=== PATIENT | female | born 2000 | race Caucasian/White ===

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

== ENCOUNTER 2020-03-14 23:00 | Observation (INO) | payer BC, SELFPAY ==
[2020-03-14 23:30] VITALS: BP 117/74; PULSE 99
[2020-03-14 23:45] VITALS: BP 125/67; PULSE 105
[2020-03-15] VITALS: BP 120/77; PULSE 104
[2020-03-15 00:23] VITALS: BMI 30.2
--- NOTE | 2020-03-15 00:23 | LDADM ---
This patient, Carolann Villa, was admitted to [facility] on 03/14/20 at 23:00. Plans for labor, pain management and were discussed with patient. Patient/family oriented to hospital policies and general routines including ID bracelet, bed and alarms, visiting hours, pain management, procedures, bathroom and other care routines, personal items, smoking policy, room service/diet and guest tray routines, infant security routines, and visiting hours. Patient/Family are encouraged to report perceived risks to care and to ask questions if they do not understand what they are told or what they should do. See OBIX for further documentation.
--- NOTE | 2020-04-12 08:37 | PM.OBTRLD ---
OB - Triage/Final Diagnosis Visit Information Comments/Additional reasons for admission: I have assessed the risk for this patient, Carolann Villa, and determined that she would benefit from observation care. Final Diagnosis (1) Pelvic pressure in female: Code(s): R10.2 - Pelvic and perineal pain Status: Acute
== END 2020-03-15 00:48 | disposition home or self-care (01) ==
PROVIDERS: Admitting Provider Obstetrics & Gynecology; PCP Family Medicine; Visit Provider Obstetrics & Gynecology
DX: O26.893 Other specified pregnancy related conditions, third trimester (principal); R10.2 Pelvic and perineal pain; Z3A.29 29 weeks gestation of pregnancy
CPT/HCPCS: G0378; G0379

== ENCOUNTER 2020-06-09 23:30 | Emergency (ER) | payer BC, SELFPAY ==
--- NOTE | ~2020-06-09 | XR_ITS ---
XR wrist RT min 3V DATE: 06/10/2020 01:01 INDICATION: Fall. Posterior and medial right wrist pain TECHNIQUE: 4 views COMPARISON: None FINDINGS: No fracture or dislocation, periosteal reaction or bone destruction, erosive change or mami drocalcinosis. Joint spaces are preserved. IMPRESSION: Negative Reviewed, dictated and finalized at location A. IMPRESSION: Negative
[2020-06-09 23:34] VITALS: BP 114/61; PULSE 94; RESP 16; TEMP 36.5; O2SAT 100
[2020-06-10] VITALS (14 sets, daily range): BP systolic 118–146; BP diastolic 70–94; PULSE 80–94; RESP 18; O2SAT 91–100
--- NOTE | 2020-06-10 01:01 | ED.FALL ---
HPI - Fall General Chief Complaint: Fall Stated Complaint: fall Time Seen by Provider: 06/10/20 00:19 Source: patient Mode of arrival: ambulatory Limitations: no limitations History of Present Illness HPI Narrative: This is a 19 year old female who presents for evaluation after a fall. She states she accidentally slipped on ice on steps, and this caused her to hit her chin. She denies hitting her head or LOC. She denies chin pain . She was just concerned if she needed stitches to the wound on her chin. She also complains of right wrist pain. Last tetanus is unknown. Related Data Home Medications Medication Instructions Recorded Confirmed Vitamin tablet 10/10/19 Allergies Allergy/AdvReac Type Severity Reaction Status Date / Time No Known Allergies Allergy Verified 05/23/19 19:20 Review of Systems Review of Systems: All systems reviewed & are unremarkable except as noted in HPI and below PMFSH Past Medical History Medical History (Updated 06/11/20 @ 00:00 by Bibi Moulton) Miscarriage UTI (urinary tract infection) Surgical History Surgical History Hx of tonsillectomy Status post dilation and curettage Social History Social History Smoking status: Never smoker Gender identity (if verbalized by the patient): Female Exam Const: General: no acute distress and alert Orientation/consciousness: patient oriented x3 HENMT: Head: normocephalic and atraumatic Mouth: Yes Normal oral and palatal mucosa present and Yes lip normal Teeth and gingiva: dentition normal (no loose teeth) Throat: posterior oropharynx normal Eyes: Pupils: Equal, round and reactive pupils present EOM: EOMs intact bilaterally Neck: Neck: normal visual inspection Chest: Chest palpation & inspection: normal inspection of the chest Resp: Effort & Inspection: normal respiratory effort and no retractions Auscultation: clear to auscultation bilaterally Cardio: Rate: regular rate Rhythm: regular rhythm Heart sounds: no murmurs Skin: Other: abrasion to chin, mild swelling Neuro: General: patient oriented x3 and moves all extremities Psych: Mental Status: mental status grossly normal Affect: normal affect Course Reevaluation(s) Reevaluation #1: I discussed with patient that xray - preliminary read is no wrist fracture. She understands if discrepancy found then she will be called. Date: 06/10/20 Time: 01:43 Vital Signs Vital signs: Vital Signs Temperature 97.7 F 06/09/20 23:34 Pulse Rate 94 06/09/20 23:34 Respiratory Rate 16 06/09/20 23:34 Blood Pressure 114/61 06/09/20 23:34 Pulse Oximetry 100 06/09/20 23:34 Temperature 97.7 F 06/09/20 23:34 Pulse Rate 80 06/10/20 01:55 Respiratory Rate 18 06/10/20 01:55 Blood Pressure 126/70 06/10/20 01:55 Pulse Oximetry 99 06/10/20 01:55 MDM - Fall Imaging Data Attestation: I personally reviewed and interpreted this imaging study as follows: My impression: right wrist- no fracture Discharge Plan Discharge Clinical Impression: Abrasion of chin, Right wrist sprain Patient Disposition: Home, Self-Care Condition: Stable Instructions: Antibiotic Form, Wrist Injury (ED), Abrasion (ED) Additional Instructions: Apply ice to your chin to help with pain and swelling. Keep wound clean and dry. Prescriptions: New ibuprofen 600 mg tablet 600 mg PO Q6H PRN (Reason: pain) Qty: 14 RF: 0 No Action Vitamin 27 mg iron- 800 mcg tablet RF: 0 Follow-up/Referrals: Lizabeth,Roseanne Gamble MD [Primary Care Provider] -
[2020-06-10] MEDS: IBUPROFEN 400 MG TABLET 800 MG PO (01:06)
[2020-06-10] MEDS: TETANUS,DIPHTHERIA,AC PERTUSSIS ADULT (0.5 ML) BOOSTRIX IM (01:07)
== END 2020-06-10 01:56 | disposition home or self-care (01) ==
PROVIDERS: Emergency Provider General Practice; PCP Family Medicine
DX: S01.81XA Laceration without foreign body of other part of head, initial encounter (principal); Z87.440 Personal history of urinary (tract) infections; W00.1XXA Fall from stairs and steps due to ice and snow, initial encounter; Z23 Encounter for immunization
CPT/HCPCS: 73110; 90471; 90715; 99283; A9270

== ENCOUNTER 2021-03-20 19:15 | Emergency (ER) | payer BC, SELFPAY ==
[2021-03-20 19:21] VITALS: BP 133/82; PULSE 95; RESP 20; TEMP 36.5; O2SAT 100
[2021-03-20 21:07] LABS: Basophils Percent Auto 0.3 % (0.2-1.2); Eosinophils Absolute Auto 0.1 K/mm3 (0-0.3); Eosinophils Percent Auto 1.8 % (0-4.4); Hemoglobin 11.7 g/dL (12.0-15.0); Immature Granulocyte Absolute 0.02 K/mm3 (0.00-0.031); Immature Granulocyte Percent A 0.3 % (0-0.5); Lymphocytes Absolute Auto 1.89 K/mm3 (0.9-3.2); Lymphocytes Percent Auto 30.1 % (18.3-44.2); Mean Corpuscular HGB Conc 32.5 g/dl (32-36); Mean Corpuscular Hemoglobin 25.2 pg (26-34); Mean Corpuscular Volume 77.4 fl (80-100); Mean Platelet Volume 10.2 fl (7.4-10.4); Monocytes Absolute Auto 0.3 K/mm3 (0.1-0.6); Monocytes Percent Auto 5.3 % (2.6-8.5); Neutrophils Absolute Auto 3.9 K/mm3 (1.3-6.7); Neutrophils Percent Auto 62.2 % (45.5-73.1); Platelet Count Result 189 k/mm3 (150-375); Red Blood Count 4.65 M/mm3 (4.2-5.4); Red Cell Distribution Width 14.7 % (11.5-14.5); White Blood Count 6.3 K/mm3 (4.5-10.0)
--- NOTE | 2021-03-20 21:56 | ED.FEMALEGU ---
HPI - Female Genitourinary General Chief complaint: Vaginal Bleeding Stated complaint: vaginal bleeding, 10wks preg Time Seen by Provider: 03/20/21 21:03 Source: patient Mode of arrival: ambulatory Limitations: no limitations History of Present Illness HPI Narrative: Patient is 20 years old white female 10 weeks came to the emergency room with sudden onset of vaginal bleeding noticed while using the bathroom. Associated with some lower abdominal cramps. Prior to arrival to the emergency room. Patient denies any fever, chills, or urinary symptoms. Patient is 3, para 1, 1. Patient noticed increased frequency of vomiting today compared to the past. Patient on vitamins, patient does not smoke or drink or uses drugs. Patient had 2 Covid vaccines. Related Data Home Medications Medication Instructions Recorded Confirmed Vitamin 1 tablet PO DAILY 10/10/19 03/20/21 Allergies Allergy/AdvReac Type Severity Reaction Status Date / Time No Known Allergies Allergy Verified 03/20/21 19:24 Review of Systems Review of Systems: CONSTITUTIONAL: Denies fever, chills, or sweats. EYES: Denies visual changes, redness, or discharge. ENT: Denies rhinorrhea, congestion, sore throat, or otalgia. CARDIOVASCULAR: Denies chest pain, palpitations, or edema. RESPIRATORY: Denies cough or dyspnea. GASTROINTESTINAL: Denies abdominal pain, nausea, vomiting, or diarrhea. GENITOURINARY: Denies dysuria or hematuria. SKIN: Denies rash or itching. MUSCULOSKELETAL: Denies back pain, joint pain, or myalgia. NEUROLOGIC: Denies headache, numbness, or weakness. PSYCHIATRIC: Denies anxiety or depression. PMFSH Past Medical History Medical History (Updated 03/20/21 @ 22:36 by Noy Arreola MD) Miscarriage UTI (urinary tract infection) Surgical History Surgical History Hx of tonsillectomy Status post dilation and curettage Social History Social History Smoking status: Never smoker Gender identity (if verbalized by the patient): Female Exam Narrative: General appearance: Well-developed, well-nourished Skin: Normal color Head: Normocephalic, nontraumatic Eyes: Clear conjunctiva ENT: Oropharynx normal, ears normal, nose normal Neck: Supple, nontender Chest and respiratory: Airway patent, no respiratory distress, no accessory muscle use Heart: Regular rate/rhythm Abdomen: Soft, nontender, no organomegaly, quiet bowel sounds Vascular: Normal peripheral pulses, normal capillary refill. Musculoskeletal: Normal range of motion, nontender back Neurologic: Alert and oriented ?3, [employer] is normal as tested, no gross motor deficit : External Female Exam: normal external appearance Speculum Exam - Vagina: normal appearance of the vagina and Abnormal introitus (No vaginal bleeding, or even trace of blood) Speculum Exam - Cervix: normal appearance of the cervix and Cervical os closed Bimanual exam- vagina & uterus: normal bimanual exam Course Course Emergency Course: Stable Reevaluation(s) Reevaluation #1: Patient feeling much better, no vaginal bleeding at this time, patient declined to wait for pelvic ultrasound. Date: 03/20/21 Time: 23:05 Vital Signs Vital signs: Vital Signs Temperature 36.5 C 03/20/21 19:21 Pulse Rate 95 03/20/21 19:21 Respiratory Rate 20 03/20/21 19:21 Blood Pressure 133/82 03/20/21 19:21 Pulse Oximetry 100 03/20/21 19:21 Temperature 36.5 C 03/20/21 19:21 Pulse Rate 95 03/20/21 19:21 Respiratory Rate 20 03/20/21 19:21 Blood Pressure 133/82 03/20/21 19:21 Pulse Oxime
== END 2021-03-20 23:07 | disposition home or self-care (01) ==
PROVIDERS: Emergency Provider Emergency Medicine; PCP Family Medicine
DX: O20.0 Threatened abortion (principal); Z3A.10 10 weeks gestation of pregnancy; Z87.440 Personal history of urinary (tract) infections
CPT/HCPCS: 36415; 84702; 85025; 85461; 99284

== ENCOUNTER 2021-08-08 03:35 | Emergency (ER) | payer BC, SELFPAY ==
[2021-08-08 03:41] VITALS: BP 110/60; PULSE 111; RESP 22; TEMP 36.5; O2SAT 97
[2021-08-08] MEDS: ACETAMINOPHEN 500 MG TABLET 1000 MG PO (03:53)
--- NOTE | 2021-08-08 03:55 | ED.GENADULT ---
HPI - General Adult General Chief complaint: Skin/Abscess/Foreign Body Stated complaint: I have something stuck in my nose Time Seen by Provider: 08/08/21 03:38 History of Present Illness HPI narrative: 21-year-old female presents emergency room states she is having trouble breathing on the right side of her nose. It started a day or so ago. She denies any significant nasal congestion. No chills or fever. She denies putting any foreign bodies upper nose. Never anything like this before. States is given her some exacerbation of her migraine headache. She is currently and a 2 para 1 approximately 30 weeks gestation at this point. Denies any abdominal pain. She is having good movement. Related Data Home Medications Medication Instructions Recorded Confirmed vits no.130-ferrous fum 1 tablet PO DAILY 10/10/19 03/20/21 27 mg iron-folic acid 800 mcg tablet ( Vitamin) Allergies Allergy/AdvReac Type Severity Reaction Status Date / Time No Known Allergies Allergy Verified 03/20/21 19:24 Review of Systems Review of Systems: CONSTITUTIONAL: Denies fever, chills, or sweats. EYES: Denies visual changes, redness, or discharge. ENT: Denies rhinorrhea, congestion, sore throat, or otalgia. Trouble breathing out of the right nares CARDIOVASCULAR: Denies chest pain, palpitations, or edema. RESPIRATORY: Denies cough or dyspnea. GASTROINTESTINAL: Denies abdominal pain, nausea, vomiting, or diarrhea. GENITOURINARY: Denies dysuria or hematuria. SKIN: Denies rash or itching. MUSCULOSKELETAL: Denies back pain, joint pain, or myalgia. NEUROLOGIC: Denies headache, numbness, or weakness. PSYCHIATRIC: Denies anxiety or depression. PMFSH Past Medical History Medical History Miscarriage UTI (urinary tract infection) Surgical History Surgical History Hx of tonsillectomy Status post dilation and curettage Social History Social History Smoking status: Never smoker Gender identity (if verbalized by the patient): Female Exam Narrative: APPEARANCE: Well appearing, no pain or distress, well-nourished. Head normocephalic and atraumatic. EYES: PERRLA/EOMI, conjunctivae very clear. NOSE: In the right nares noted to be a white saccular type lesion noted there. Able to grab it with a pair of tweezers and is freely movable but consistent with a probable mucocele. Left nares is open and clear EARS:TMS clear Stephy Huggins, with good light reflex. THROAT: Pharynx clear, no exudate. NECK: Supple. No adenopathy, no masses. RESPIRATORY: Airway patent, respirations nonlabored. Clear to auscultation bilaterally, no rales, rhonchi, wheezing. CARDIOVASCULAR: Regular rate and rhythm without murmurs, rubs, or gallops. ABDOMINAL: Soft, nontender, nondistended, no hepatosplenomegaly. Gravid uterus noted Musculoskeletal: Moves all extremities. Strength/ROM intact, No edema, No calf tenderness. NEURO: Alert. Cranial nerves II through XII intact. Normal gait. Good coordination. Nonfocal examination. SKIN:: Warm, dry. Normal Color PSYCHIATRIC: Normal affect/mood, normal interaction Course Vital Signs Vital signs: Vital Signs Temperature 97.7 F 08/08/21 03:41 Pulse Rate 111 H 08/08/21 03:41 Respiratory Rate 22 H 08/08/21 03:41 Blood Pressure 110/60 08/08/21 03:41 Pulse Oximetry 97 08/08/21 03:41 Oxygen Delivery Room Air 08/08/21 03:41 Temperature 97.7 F 08/08/21 03:41 Pulse Rate 111 H 08/08/21 03:41 Respiratory Rate 22 H 08/08/21 03:41 Blood Pressure 110/60 08/08/21 03:41 Pulse Oximetry 97 08/08/21 03:41 Oxygen Delivery Room Air 08/08/21 03:41 Medical Decision Making MDM Narrative Medical decision making narrative: Presentation is consistent with a probable mucocele in the right nares. Patient ken
[2021-08-08 04:02] VITALS: BP 110/60; PULSE 90; RESP 20; O2SAT 97
== END 2021-08-08 04:05 | disposition home or self-care (01) ==
PROVIDERS: Emergency Provider Emergency Medicine
DX: O99.513 Diseases of the respiratory system complicating pregnancy, third trimester (principal); J34.1 Cyst and mucocele of nose and nasal sinus; Z87.440 Personal history of urinary (tract) infections; Z3A.30 30 weeks gestation of pregnancy
CPT/HCPCS: 99282; A9270

== ENCOUNTER 2021-08-23 00:36 | Observation (INO) | payer BC, SELFPAY ==
[2021-08-23] VITALS (16 sets, daily range): BP systolic 121–122; BP diastolic 68–70; PULSE 80–112; TEMP 36.8; O2SAT 98–100
--- NOTE | 2021-08-23 00:36 | OBADM ---
This patient, Carolann Villa, admitted to the OB room [facility] for observation. Patient/family oriented to hospital policies and general routines including ID bracelet, bed and alarms, visiting hours, pain management, procedures, bathroom and other care routines, personal items, smoking policy, room service/diet, and visiting hours. Patient/Family are encouraged to report perceived risks to care and to ask questions if they do not understand what they are told or what they should do.
--- NOTE | 2021-08-23 01:04 | PC.NURSE ---
Notified Dr. Espinoza of patient arrival to OB unit. Updated on maternal assessment and history and FHT. Order to collect ROM plus given and PO hydrate.
--- NOTE | 2021-08-23 02:34 | PC.NURSE ---
Dr. Espinoza notified of patient continued mild contractions following PO hydration. Orders received.
[2021-08-23] MEDS: TERBUTALINE SULFATE 1 MG/ML VIAL 0.25 MG SUB-Q (02:46)
--- NOTE | 2021-08-23 03:37 | PC.NURSE ---
Patient states she is no longer feeling any contractions following terbutaline dose. Patient is resting comfortably.
--- NOTE | 2021-08-23 03:49 | PC.NURSE ---
Discharge instructions reviewed with patient. Labor precautions reviewed. Patient instructed to maintain pelvic rest. Patient instructed to follow-up with OB office Monday. Patient states understanding of discharge instructions and denies questions. Patient is agreeable to discharge.
--- NOTE | 2021-08-26 02:10 | PM.OBTRLD ---
OB - Triage/Final Diagnosis Visit Information Comments/Additional reasons for admission: I have assessed the risk for this patient, Carolann Villa, and determined that she would benefit from observation care. Final Diagnosis (1) Vaginal discharge during : Code(s): O26.899 - Other specified related conditions, unspecified trimester; N89.8 - Other specified noninflammatory disorders of vagina Status: Acute
== END 2021-08-23 03:53 | disposition home or self-care (01) ==
PROVIDERS: Admitting Provider Obstetrics & Gynecology; Visit Provider Obstetrics & Gynecology
DX: O26.899 Other specified pregnancy related conditions, unspecified trimester (principal); N89.8 Other specified noninflammatory disorders of vagina; Z3A.00 Weeks of gestation of pregnancy not specified
CPT/HCPCS: 84112; 96372; G0378; G0379; J3105

== ENCOUNTER 2021-09-26 00:56 | Outpatient (CLI) | payer BC, SELFPAY ==
--- NOTE | 2021-09-26 01:10 | PC.NURSE ---
Pt brought from ER stating that her water was broke. Pt taken to room to change and call out when ready. Upon entering room, pt stated that she had to leave. Pt informed of risk of infection if her water was broken. Pt stated that she did not want to be evaluated. Instructed that she would need to sign AMA form. Pt agreed. AMA form taken to room and pt was crying. Asked if she was ok, and if we could do anything for her. Pt stated that she would be fine and there was nothing we could do. Significant other stated that their ride had their children with them and were being retarded . Significant other stated that they would probably be back.
== END 2021-09-26 01:12 | disposition left against medical advice (07) ==
LOC: ANHOBOP 01:13 → ANHLDR 01:13
PROVIDERS: Visit Provider Obstetrics & Gynecology
DX: O41.8X90 Other specified disorders of amniotic fluid and membranes, unspecified trimester, not applicable or unspecified (principal); Z3A.00 Weeks of gestation of pregnancy not specified
CPT/HCPCS: 99199

== ENCOUNTER 2021-09-26 04:04 | Observation (INO) | payer BC, SELFPAY ==
--- NOTE | 2021-09-26 04:04 | OBADM ---
This patient, Carolann Villa, admitted to the OB room Labor/Delivery/Recovery 107 for observation. Patient/family oriented to hospital policies and general routines including ID bracelet, bed and alarms, visiting hours, pain management, procedures, bathroom and other care routines, personal items, smoking policy, room service/diet, and visiting hours. Patient/Family are encouraged to report perceived risks to care and to ask questions if they do not understand what they are told or what they should do.
[2021-09-26 04:15] VITALS: BMI 34.0
[2021-09-26 05:00] VITALS: BP 110/74; PULSE 77
--- NOTE | 2021-09-28 17:44 | PM.OBTRLD ---
OB - Triage/Final Diagnosis Visit Information Reason for evaluation: threatened labor Comments/Additional reasons for admission: I have assessed the risk for this patient, Carolann Villa, and determined that she would benefit from observation care.
== END 2021-09-26 05:15 | disposition home or self-care (01) ==
PROVIDERS: Admitting Provider Obstetrics & Gynecology; Visit Provider Obstetrics & Gynecology
DX: O47.1 False labor at or after 37 completed weeks of gestation (principal); Z3A.37 37 weeks gestation of pregnancy
CPT/HCPCS: 84112; G0378; G0379

== ENCOUNTER 2021-11-21 22:21 | Emergency (ER) | payer BC, SELFPAY ==
[2021-11-21 22:26] VITALS: BP 117/67; PULSE 81; RESP 16; TEMP 36.4; O2SAT 100
[2021-11-21 23:06] LABS: Basophils Percent Auto 0.4 % (0.2-1.2); Eosinophils Absolute Auto 0.2 K/mm3 (0-0.3); Eosinophils Percent Auto 3.6 % (0-4.4); Hematocrit 37.2 % (37.0-47.0); Hemoglobin 11.1 g/dL (12.0-15.0); Immature Granulocyte Absolute 0.03 K/mm3 (0.00-0.031); Immature Granulocyte Percent A 0.4 % (0-0.5); Lymphocytes Absolute Auto 2.36 K/mm3 (0.9-3.2); Lymphocytes Percent Auto 35.2 % (18.3-44.2); Mean Corpuscular HGB Conc 29.8 g/dl (32-36); Mean Corpuscular Hemoglobin 23.2 pg (26-34); Mean Corpuscular Volume 77.7 fl (80-100); Mean Platelet Volume 10.5 fl (7.4-10.4); Monocytes Absolute Auto 0.4 K/mm3 (0.1-0.6); Monocytes Percent Auto 5.7 % (2.6-8.5); Neutrophils Absolute Auto 3.7 K/mm3 (1.3-6.7); Neutrophils Percent Auto 54.7 % (45.5-73.1); Platelet Count Result 202 k/mm3 (150-375); Red Blood Count 4.79 M/mm3 (4.2-5.4); Red Cell Distribution Width 21.9 % (11.5-14.5); White Blood Count 6.7 K/mm3 (4.5-10.0)
[2021-11-21 23:42] LABS: Platelet Estimate Adequate (Adequate)
[2021-11-21 23:43] LABS: Microcytosis 1+ (NORMAL); Poikilocytosis 1+ (NORMAL)
[2021-11-21 23:45] LABS: Hypochromasia 1+ (NORMAL)
[2021-11-22 00:36] VITALS: BP 123/75; PULSE 74; RESP 17; O2SAT 100
--- NOTE | 2021-11-22 00:51 | PC.NURSE ---
Called lab to add on Beta HCG, spoke with quinton, she will add it on.
[2021-11-22 00:59] LABS: Appearance Urine Clear (Clear); Bilirubin Urine Negative (Negative); Blood Urine 3+ (Negative); Color Urine Yellow (Yellow); Glucose Urine UA Negative (Negative); Ketones Urine Negative (Negative); Leukocyte Esterase Ur Negative LEU/UL (Negative); Nitrate Urine Negative (Negative); Protein Urine Negative (Negative); Urobilinogen Urine 0.2 mg/dL (<2.0); pH Urine 6.5 (5.0-9.0)
--- NOTE | 2021-11-22 01:04 | ED.GENADULT ---
HPI - General Adult General Chief complaint: Vaginal Bleeding <JOSE Ventura Last Filed: 11/22/21 03:26> Stated complaint: vaginal bleeding <JOSE Ventura Last Filed: 11/22/21 03:26> Time Seen by Provider: 11/21/21 23:53 <JOSE Ventura Last Filed: 11/22/21 03:26> Source: patient <JOSE Ventura Last Filed: 11/22/21 03:26> Mode of arrival: ambulatory <JOSE Ventura Last Filed: 11/22/21 03:26> Limitations: no limitations <JOSE Ventura Last Filed: 11/22/21 03:26> History of Present Illness HPI narrative: Patient is a 29-year-old female who presents the ED with report of vaginal bleeding. Patient reports she had a short menstrual cycle last week which ended on . On Monday morning, she passed a large baseball size clot. She has since had mild vaginal bleeding over the last couple days. Some smaller clots present. She reports having some lower abdominal pain, but has not tried anything for this. Denies nausea, vomiting, fever, urinary symptoms. Patient is sexually active. <JOSE Ventura Last Filed: 11/22/21 03:26> Related Data Home medications: Home Medications Medication Instructions Recorded Confirmed vits no.130-ferrous fum 1 tablet PO DAILY 10/10/19 08/23/21 27 mg iron-folic acid 800 mcg tablet ( Vitamin) <JOSE Ventura Last Filed: 11/22/21 03:26> Allergies/adverse reactions: Allergies Allergy/AdvReac Type Severity Reaction Status Date / Time No Known Allergies Allergy Verified 11/22/21 00:37 <JOSE Ventura Last Filed: 11/22/21 03:26> Review of Systems Review of Systems: CONSTITUTIONAL: Denies fever, chills, or sweats. CARDIOVASCULAR: Denies chest pain. RESPIRATORY: Denies dyspnea. GASTROINTESTINAL: Reports lower abdominal pain. Denies nausea, vomiting, or diarrhea. GENITOURINARY: Reports vaginal bleeding with clots. Denies dysuria or hematuria. <Patti Mancera PA-C - Last Filed: 11/22/21 03:26> All systems reviewed & are unremarkable except as noted in HPI and below <Patti Mancera PA-C - Last Filed: 11/22/21 03:26> PMFSH Past Medical History Medical History: Medical History (Updated 11/23/21 @ 00:00 by Bibi Dakamron) Miscarriage UTI (urinary tract infection) <Patti Mancera PA-C - Last Filed: 11/22/21 03:26> Surgical History Surgical History: Surgical History Hx of tonsillectomy Status post dilation and curettage <Patti Mancera PA-C - Last Filed: 11/22/21 03:26> Social History Social History: Social History Smoking status: Never smoker Gender identity (if verbalized by the patient): Female <Patti Mancera PA-C - Last Filed: 11/22/21 03:26> Exam Narrative: GENERAL: Well appearing, well-nourished, non-toxic, in no acute distress. HEAD: Normocephalic, atraumatic. NECK: Supple. No adenopathy, no masses. RESPIRATORY: Airway patent, respirations nonlabored. Clear to auscultation bilaterally, no rales, rhonchi, wheezing. CARDIOVASCULAR: Regular rate and rhythm without murmurs, rubs, or gallops. Peripheral pulses 2+ and equal bilaterally. ABDOMINAL: Soft, minimal tenderness over suprapubic region, nondistended, no hepatosplenomegaly. Normoactive BS. PELVIC: Normal external genitalia. Normal-appearing cervix. Some blood coming from cervical os, but no signs of hemorrhage or pooling of blood. Able to clear blood easily with long Q-tips. No significant CMT. MUSCULOSKELETAL: Moves all extremities. Strength/ROM intact without gross deformities. SKIN: Warm, dry, normal color. No rashes. NEURO: A&O X3. Speech clear. Cranial nerves II-XII grossly intact. Steady gait. No ataxic movements. PSYCHIATRIC: Appr
[2021-11-22 01:06] LABS: Mucus Urine Rare /lpf; RBC Urine >75 /hpf (0-2); Squamous Epithelial Cell Urine Rare /hpf (Few)
[2021-11-22 01:16] LABS: Add Urine Microscopic? YES
[2021-11-22 01:26] LABS: Beta HCG Quantitative < 2.39 mIU/ML
== END 2021-11-22 02:04 | disposition home or self-care (01) ==
PROVIDERS: Physician Assistant; Emergency Provider Emergency Medicine
DX: N93.8 Other specified abnormal uterine and vaginal bleeding (principal)
CPT/HCPCS: 36415; 81001; 84702; 85025; 99284

== ENCOUNTER 2023-05-19 03:21 | Observation (INO) | payer OTHER, SELFPAY ==
[2023-05-19] VITALS (18 sets, daily range): BP systolic 102–116; BP diastolic 55–70; PULSE 74–112; TEMP 36.6; O2SAT 98–100; BMI 25.8
[2023-05-19 04:00] LABS: Appearance Urine Clear (Clear); Bacteria Urine Rare /hpf; Bilirubin Urine Negative (Negative); Blood Urine Negative (Negative); Color Urine Yellow (Yellow); Glucose Urine UA Negative (Negative); Ketones Urine Negative (Negative); Leukocyte Esterase Ur 3+ LEU/UL (Negative); Nitrate Urine Negative (Negative); Non Pathogenic Casts 0-2; Protein Urine Negative (Negative); RBC Urine 0-2 /hpf (0-2); Specific Grav Ur 1.008 (1.001-1.035); Squamous Epithelial Cell Urine Few /hpf (Few); Urobilinogen Urine 0.2 mg/dL (<2.0); WBC Urine 21-50 /hpf (0-3)
[2023-05-19 04:13] LABS: Add Urine Microscopic? YES
[2023-05-19] MEDS: TERBUTALINE SULFATE 1 MG/ML VIAL (04:49)
--- NOTE | 2023-06-08 13:42 | PM.OBTRLD ---
OB - Triage/Final Diagnosis Visit Information Comments/Additional reasons for admission: I have assessed the risk for this patient, Carolann Villa, and determined that she would benefit from observation care. Evaluation Laboratory results: Laboratory Tests 05/19/23 03:36 Urine Color Yellow Urine Appearance Clear Urine pH 8.0 Ur Specific [place] 1.008 Urine Protein Negative Urine Glucose (UA) Negative Urine Ketones Negative Ur Blood (Man) Negative Urine Nitrate Negative Urine Bilirubin Negative Urine Urobilinogen 0.2 Ur Leukocyte Esterase 3+ H Urine RBC 0-2 Urine WBC 21-50 H Ur Squamous Epith Cells Few Urine Bacteria Rare Urine Casts 0-2 Final Diagnosis (1) contractions: Code(s): O47.00 - False labor before 37 completed weeks of gestation, unspecified trimester Status: Acute
== END 2023-05-19 05:55 | disposition home or self-care (01) ==
PROVIDERS: Admitting Provider Obstetrics & Gynecology; Visit Provider Obstetrics & Gynecology
DX: O47.00 False labor before 37 completed weeks of gestation, unspecified trimester (principal); Z3A.33 33 weeks gestation of pregnancy
CPT/HCPCS: 81001; 84112; 87086; 87088; 96372; G0378; G0379; J3105

== ENCOUNTER 2023-05-31 17:03 | Outpatient (CLI) | payer MEDICAID, SELFPAY ==
[2023-05-31 17:42] LABS: Basophils Percent Auto 0.3 % (0.2-1.2); Eosinophils Absolute Auto 0.1 K/mm3 (0-0.3); Eosinophils Percent Auto 1.4 % (0-4.4); Hematocrit 27.2 % (37.0-47.0); Hemoglobin 8.5 g/dL (12.0-15.0); Immature Granulocyte Absolute 0.23 K/mm3 (0.00-0.031); Immature Granulocyte Percent A 2.6 % (0-0.5); Lymphocytes Absolute Auto 1.82 K/mm3 (0.9-3.2); Lymphocytes Percent Auto 20.6 % (18.3-44.2); Mean Corpuscular HGB Conc 31.3 g/dl (32-36); Mean Corpuscular Hemoglobin 24.7 pg (26-34); Mean Corpuscular Volume 79.1 fl (80-100); Mean Platelet Volume 11.4 fl (7.4-10.4); Monocytes Absolute Auto 0.4 K/mm3 (0.1-0.6); Neutrophils Absolute Auto 6.2 K/mm3 (1.3-6.7); Neutrophils Percent Auto 70.1 % (45.5-73.1); Platelet Count Result 191 k/mm3 (150-375); Red Blood Count 3.44 M/mm3 (4.2-5.4); Red Cell Distribution Width 16.4 % (11.5-14.5); White Blood Count 8.8 K/mm3 (4.5-10.0)
[2023-05-31 19:51] LABS: Hepatitis B Surface Antigen Negative (Negative); Rubella IgG Antibody 5.7 IU/ML
[2023-05-31 19:57] LABS: HAV RESULT Negative (Negative); Hepatitis B Core IgM Result Negative (Negative)
[2023-05-31 20:02] LABS: HIV 1/2 Ab P24 Ag Result Negative (Negative)
[2023-05-31 20:08] LABS: Hepatitis C Virus Antibody Negative (Negative)
[2023-06-01 09:02] LABS: Rapid Plasma Reagin Non-Reactive (NonReactive)
[2023-06-07 14:49] LABS: CMV IgG Antibody <0.60 U/mL
== END 2023-05-31 17:04 | disposition home or self-care (01) ==
PROVIDERS: Visit Provider Student in an Organized Health Care Education/Training Program
DX: Z34.90 Encounter for supervision of normal pregnancy, unspecified, unspecified trimester (principal)
CPT/HCPCS: 36415; 80074; 84702; 85025; 86592; 86644; 86695; 86696; 86703; 86747; 86762; 86787; 86850; 86900; 86901; 87077; 87086; 87088; G0432

== ENCOUNTER 2023-06-15 12:19 | Outpatient (CLI) | payer MEDICAID, SELFPAY ==
[2023-06-15 12:45] VITALS: BP 114/70; PULSE 101
[2023-06-15 13:00] VITALS: BP 108/55; PULSE 94
[2023-06-15 13:01] VITALS: BP 107/60; PULSE 107
[2023-06-15 13:15] VITALS: BP 114/64; PULSE 105
[2023-06-15 13:31] VITALS: BP 114/64; PULSE 105
== END 2023-06-15 13:35 | disposition home or self-care (01) ==
LOC: ANHOBOP 12:23 → ANHLDR 12:24
PROVIDERS: Visit Provider Student in an Organized Health Care Education/Training Program
DX: O41.8X90 Other specified disorders of amniotic fluid and membranes, unspecified trimester, not applicable or unspecified (principal)
CPT/HCPCS: 59025; 84112; 99199

== ENCOUNTER 2023-06-20 07:00 | Observation (INO) | payer MEDICAID, SELFPAY ==
[2023-06-20 08:00] VITALS: BMI 27.6
--- NOTE | 2023-06-20 09:34 | LDADM ---
This patient, Carolann Villa, was admitted to Labor/Delivery/Recovery 104 on 06/20/23 at 07:00. Plans for labor, pain management and were discussed with patient. Patient/family oriented to hospital policies and general routines including ID bracelet, bed and alarms, visiting hours, pain management, procedures, bathroom and other care routines, personal items, smoking policy, room service/diet and guest tray routines, security routines, and visiting hours. Patient/Family are encouraged to report perceived risks to care and to ask questions if they do not understand what they are told or what they should do. See OBIX for further documentation.
--- NOTE | 2023-06-20 09:37 | PC.NURSE ---
0700: Patient presents to L&D unit with complaints of contractions and patient states she is unsure if she is leaking fluid. Patient placed on monitors and ROM+ test performed. Cervical exam performed and patient given a pitcher of water to orally hydrate. 0909: Patient orally hydrated and states cramping has improved. Patient's ROM+ test was negative and patient has had no fluid out. Patient's cervix has made no change since last cervical exam. Called Dr. Funes at 0909. Discussed patient's negative ROM+ results as well as notified MD of both cervical exams. Dr. Funes reviewed tracing and gave verbal orders for discharge. Patient agrees with plan of care and has no questions at this time.
--- NOTE | 2023-06-20 09:38 | PM.OBTRLD ---
OB - Triage/Final Diagnosis Visit Information Date of evaluation: 06/20/23 Reason for evaluation: threatened labor Comments/Additional reasons for admission: I have assessed the risk for this patient, Carolann Villa, and determined that she would benefit from observation care. Evaluation Vital signs: Vital Signs - 24 hr 06/20/23 08:00 Oxygen Delivery Room Air
== END 2023-06-20 09:30 | disposition home or self-care (01) ==
PROVIDERS: Admitting Provider Student in an Organized Health Care Education/Training Program; Visit Provider Student in an Organized Health Care Education/Training Program
DX: O47.1 False labor at or after 37 completed weeks of gestation (principal); Z3A.38 38 weeks gestation of pregnancy
CPT/HCPCS: 84112; G0378; G0379

== ENCOUNTER 2023-06-26 04:50 | Inpatient (IN) | payer OTHER, SELFPAY ==
[2023-06-26] VITALS (43 sets, daily range): BP systolic 101–142; BP diastolic 59–107; PULSE 31–178; RESP 16–18; TEMP 36.4–36.7; O2SAT 78–100; BMI 28.8
--- NOTE | 2023-06-26 04:50 | LDADM ---
This patient, Carolann Villa, was admitted to Labor/Delivery/Recovery 104 on 06/26/23 at 04:50. Plans for labor, pain management and were discussed with patient. Patient/family oriented to hospital policies and general routines including ID bracelet, bed and alarms, visiting hours, pain management, procedures, bathroom and other care routines, personal items, smoking policy, room service/diet and guest tray routines, security routines, and visiting hours. Patient/Family are encouraged to report perceived risks to care and to ask questions if they do not understand what they are told or what they should do. See OBIX for further documentation.
[2023-06-26 05:40] LABS: Basophils Absolute Auto 0.1 K/mm3 (0.0-0.1); Basophils Percent Auto 0.5 % (0.2-1.2); Eosinophils Absolute Auto 0.2 K/mm3 (0-0.3); Eosinophils Percent Auto 2.2 % (0-4.4); Hematocrit 28.7 % (37.0-47.0); Hemoglobin 8.9 g/dL (12.0-15.0); Immature Granulocyte Absolute 0.16 K/mm3 (0.00-0.031); Immature Granulocyte Percent A 1.7 % (0-0.5); Lymphocytes Absolute Auto 2.51 K/mm3 (0.9-3.2); Lymphocytes Percent Auto 26.8 % (18.3-44.2); Mean Corpuscular Volume 80.6 fl (80-100); Monocytes Absolute Auto 0.5 K/mm3 (0.1-0.6); Monocytes Percent Auto 5.4 % (2.6-8.5); Neutrophils Absolute Auto 5.9 K/mm3 (1.3-6.7); Neutrophils Percent Auto 63.4 % (45.5-73.1); Platelet Count Result 211 k/mm3 (150-375); Red Blood Count 3.56 M/mm3 (4.2-5.4); White Blood Count 9.4 K/mm3 (4.5-10.0)
[2023-06-26] MEDS: LACTATED RINGERS 1,000 ML 125 ML IV CONT ×2 (06:09→08:15)
[2023-06-26] MEDS: OXYTOCIN 30 UNITS/NS 500 ML 30 UNITS/500 ML BAG IV CONT (06:10)
--- NOTE | 2023-06-26 06:11 | WPDANESEPP ---
Anes - Eval Pre Procedure Procedure: Labor Epidural Date/Time: 06/26/23 06:11 Surgeon: Marin Preop Diagnosis: Labor pain Pre Op Diagnosis: IOL Patient Data Age: 22 Gender: F Height: 1.63 m Weight: 76 kg Last Vital Signs Pulse 93 06/26/23 06:00 BP 108/70 06/26/23 06:00 O2 Del Method Room Air 06/26/23 05:16 Allergies Allergy/AdvReac Type Severity Reaction Status Date / Time No Known Allergies Allergy Verified 06/26/23 05:26 Home Medications Medication Instructions Recorded Confirmed Type vits no.130-ferrous fum 1 tablet PO DAILY 10/10/19 06/26/23 History 27 mg iron-folic acid 800 mcg tablet ( Vitamin) Laboratory Tests 06/26/23 05:13 WBC Pending RBC Pending Hgb Pending Hct Pending MCV Pending MCH Pending MCHC Pending RDW Pending Plt Count Pending MPV Pending Immature Gran % (Auto) Pending Neut % (Auto) Pending Lymph % (Auto) Pending [place] % (Auto) Pending Eos % (Auto) Pending Baso % (Auto) Pending Lymph # (Auto) Pending [place] # (Auto) Pending Eos # (Auto) Pending Baso # (Auto) Pending Abs Immat Gran (auto) Pending Absolute Neuts (auto) Pending Absolute Nucleated RBC Pending Nucleated RBC % Pending RPR Pending : gestational age ([place] 07/03/23) Patient hx anesthesia problems: none Family hx anesthesia problems: none Results Review: All pre-operative results and documents have been reviewed as part of the pre-operative evaluation. [facility] Past Medical History Medical History Miscarriage UTI (urinary tract infection) Surgical History Surgical History Status post dilation and curettage (11/28/18) suction D&C missed AB Family History Family History Father Diabetes mellitus Mother Diverticulitis Hypertension Social History Social History Smoking packs per day: 0.5 Smoking cigarettes per day: 10.0 Years smoked: 3 Smoking pack-years: 1.50 Smoking status: Current every day smoker Tobacco type: cigarettes Second hand tobacco smoke exposure: Yes Additional smoking assessment comments: only smoking 2 cigarettes a day Alcohol intake: never Substance use: never Substance use type: does not use Do You Feel Safe in your Home?: Yes Lack of Transportation: No Lack of Food: Never True Current Housing: I Have Housing Concerned About Future Housing: No Difficulty Paying Gas/Electric Bills: No Difficulty Paying for Meds: No Currently Unemployed: YES Education: Grade School Difficulty w/ Childcare or Family Care: No Living arrangements: with family Additional living arrangements comments: lives with mother Occupation/Education: unemployed Gender identity (if verbalized by the patient): Female Sexual Orientation (if Verbalized by the Patient): Straight or Heterosexual Spiritual care concerns: No Exam Day of Procedure 06/26/23 06:11 Patient weight: normal Heart: regular rate and rhythm Lungs: normal air movement Airway: Mallampati scale class II Neurological: alert and oriented
--- NOTE | 2023-06-26 07:23 | WPDHPUPDATE1 ---
History and Physical Update Update Date/Time: 06/26/23 07:23 22 yo who presents for elective IOL History and Physical has been reviewed, including an updated exam of the patient. There are NO changes in the patient's condition. Risks, benefits, and alternatives have been discussed and questions answered. Patient agrees to proceed with procedure. A/P: admit to L&D Rh+ GBS neg plan for elective IOL
--- NOTE | 2023-06-26 07:27 | PM.OBPNLAB ---
Pain Control Date/time seen: 06/26/23 07:27 Pain control: tolerating well Pelvic Exam Dilation (cm): 3 Effacement (%): 50 station: -3 Amniotic membrane status: Intact Status status: Category ll Assessment and Plan Assessment: induction ongoing Comments: AROM for thin meconium stained fluid.
[2023-06-26 07:29] LABS: HIV 1/2 Ab P24 Ag Result Negative (Negative)
--- NOTE | 2023-06-26 08:50 | PM.OBPRVD ---
OB - Vaginal Delivery Note Procedure Delivery date: 06/26/23 Induction method: Per Pitocin Protocol Delivery augmentation: Rupture of Membranes Delivery monitor: External FHT and External Uterine Route of delivery: Episiotomy description: None Laceration Description: None Specimen: No Quantitative Blood Loss (ml): 150 Anesthesia type: Epidural Disposition: Floor Complications: No immediate complications Narrative: Patient pushed for a spontaneous vaginal delivery. The fetus was delivered atraumatically and placed on the maternal abdomen. The cord was clamped and cut after 1 minute of life. The cord was double clamped and cut and a segment of cord was collected for cord gases. Cord blood was collected for blood type and Coomb's testing. The placenta delivered spontaneously and was noted to be intact. The perineum was inspected and noted to be intact. The uterus was firm and good hemostasis was noted. Baby Date of : 06/26/23 Time of : 08:42 Weeks of gestation at delivery: 39 Infant gender: Male Weight (pounds): 7 Weight (ounces): 4 presentation: vertex position: Right Occiput Anterior Placenta delivery description: Spontaneous Cord Vessel Description: 3 Vessels score one minute: 8 score five minutes: 9
[2023-06-26 09:05] LABS: Rapid Plasma Reagin Non-Reactive (NonReactive)
[2023-06-26] MEDS: BENZOCAINE 20% AER SPR (*SP) 56 GM CAN 1 SPRAY TOPICAL (09:05)
[2023-06-26] MEDS: IBUPROFEN 600 MG TABLET PO ×3 (09:05→21:52)
[2023-06-26] MEDS: ACETAMINOPHEN 325 MG TABLET 650 MG PO ×2 (09:05→19:44)
[2023-06-26] MEDS: WITCH HAZEL 40 PADS 1 PAD TOPICAL (09:05)
[2023-06-26] MEDS: OXYTOCIN 30 UNITS/NS 500 ML 30 UNITS/500 ML BAG 125 UNITS (09:19)
--- NOTE | 2023-06-26 11:40 | PC.NURSE ---
Patient transferred to post room #292 via wheelchair. Support person present. Oriented to unit, room, information board, rooming in, admission packet and security measures. Patient verbalizes understanding.
[2023-06-26] MEDS: HYDROcodone/acetaminophen (*CRX) 5-325 MG TABLET 1 TAB PO (13:28)
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
[2023-06-26] MEDS: MULTIVIT/MIN/PREN/FOL AC/IRON TABLET 1 TAB PO (15:42)
[2023-06-26] MEDS: DOCUSATE SODIUM 100 MG CAPSULE PO (15:43)
[2023-06-26] MEDS: POLYSACCHARIDE IRON COMPLEX 150 MG CAPSULE PO (15:43)
[2023-06-27 01:30] VITALS: BP 97/60; PULSE 77; RESP 16; TEMP 36.9; O2SAT 99
[2023-06-27] MEDS: IBUPROFEN 600 MG TABLET PO (05:20)
[2023-06-27 06:08] LABS: Hematocrit 28.4 % (37.0-47.0); Hemoglobin 8.7 g/dL (12.0-15.0)
--- NOTE | 2023-06-27 07:41 | P.DS_ITS ---
DS: Admitting Diagnosis Discharge Date 06/27/23 Admitting Diagnosis Intrauterine at term DS: Discharge Diagnosis Discharge Diagnosis (1) Normal vaginal delivery: Code(s): O80 - Encounter for full-term uncomplicated delivery Status: Acute OB - DS: Summary OB Procedures : None OB Procedures Intrapartum: Spontaneous Vag Delivery OB Procedures: : None Peripartum Data Laceration Description: None Episiotomy description: None Status at Discharge Functional status at discharge: independent ambulation Overall status at discharge: patient is back to baseline Time Spent with Patient Time attestation: Total time spent providing and/or coordinating discharge services: Time spent: Less than 30 minutes Exam Const: General: comfortable and no acute distress Resp: Effort & Inspection: normal respiratory effort Auscultation: clear to auscultation bilaterally Cardio: Rate: regular rate GI: GI Palp: Yes Soft to palpation Auscultation: normal bowel sounds Other: Fundus firm below umbilicus Psych: Appearance: grossly normal Mental Status: mental status grossly normal Affect: normal affect DS: Data Data Completed and Pending Labs on day of discharge: Labs from last 24 hours 06/27/23 06/26/23 05:28 05:13 Hgb 8.7 L Hct 28.4 L RPR Non-reactive Discharge Plan Discharge Discharging Clinician: Enrike Funes Patient Disposition: Home, Self-Care Activity: as tolerated and pelvic rest Diet: regular Patient Instructions: Antibiotic Form, Vaginal Delivery (DC) Stand Alone Forms: General Discharge Information Follow-up/Referrals: Enrike Funes MD [Physician] - 4 Weeks Discharge Medications: New acetaminophen 500 mg tablet 500 mg PO Q6H PRN (Reason: pain) Qty: 30 0RF ferrous sulfate [Iron (ferrous sulfate)] 325 mg (65 mg iron) tablet 325 mg PO DAILY Qty: 90 1RF ibuprofen 600 mg tablet 600 mg PO Q6H PRN (Reason: pain) Qty: 30 0RF Continued Vitamin 27 mg iron- 800 mcg tablet 1 tablet PO DAILY Date of admission: 06/26/23 04:50 Primary Care Provider: PHYSICIAN,LAWN TECHNICIAN Admitting Provider: Enrike Funes Attending physician on admission: Enrike Funes Condition: Stable
[2023-06-27 07:50] VITALS: BP 106/62; PULSE 86; RESP 16; TEMP 36.3; O2SAT 99
[2023-06-27] MEDS: DOCUSATE SODIUM 100 MG CAPSULE PO (08:03)
[2023-06-27] MEDS: POLYSACCHARIDE IRON COMPLEX 150 MG CAPSULE PO (08:03)
--- NOTE | 2023-06-27 13:58 | WPDANLDPN2 ---
Anes-Prog Note L&D Date/Time: 06/27/23 13:58 Comfortable throughout: labor and delivery Neuraxial method: epidural Epidural/Spinal procedure site: clean & non-tender Neuro status: Neuro function grossly intact. Cardiovascular status: normal Respiratory status: normal Airway patency: baseline Mental status: baseline Post-Op hydration status: normal Vital Signs: Last Vital Signs Temp 36.3 C L 06/27/23 07:50 Pulse 86 06/27/23 07:50 Resp 16 06/27/23 07:50 BP 106/62 06/27/23 07:50 Pulse Ox 99 06/27/23 07:50 O2 Del Method Room Air 06/27/23 07:20 Pain score (VAS): 0/10 Post-procedural complaints: none Patient feedback: Patient satisfied with anesthetic care.
[2023-06-28 10:53] VITALS: BP 129/58; PULSE 93; RESP 18; TEMP 36.6; O2SAT 100
== END 2023-06-27 14:20 | disposition home or self-care (01) | DRG 560 ==
LOC: ANHLDR 04:56 → ANHOB2 12:03
PROVIDERS: Admitting Provider Student in an Organized Health Care Education/Training Program; Visit Provider Student in an Organized Health Care Education/Training Program
DX: O77.0 Labor and delivery complicated by meconium in amniotic fluid (principal); Z37.0 Single live birth; Z3A.39 39 weeks gestation of pregnancy
CPT/HCPCS: 36415; 85014; 85018; 85025; 86592; 86703; 86850; 86900; 86901; A9270; G0432; J2590; J2795; J7120

== ENCOUNTER 2024-01-20 20:16 | Emergency (ER) | payer OTHER, SELFPAY ==
[2024-01-20 20:18] VITALS: BP 128/76; PULSE 104; RESP 15; TEMP 36.3; O2SAT 100
--- NOTE | 2024-01-20 21:10 | PC.NURSE ---
pt to rn endocrinology i am going to leave.
== END 2024-01-20 21:35 | disposition left against medical advice (07) ==
LOC: ANHED 21:25
DX: R10.2 Pelvic and perineal pain (principal)
CPT/HCPCS: 99199

== ENCOUNTER 2024-02-04 16:49 | Emergency (ER) | payer OTHER, SELFPAY ==
--- NOTE | ~2024-02-04 | XR_ITS ---
EXAM: XR abdomen/kub 1V DATE: 02/04/2024 17:32 HISTORY: diffuse mid abdominal pain . COMPARISON: None available. FINDINGS: Lung bases excluded from the [id number]. Normal bowel gas pattern. Enlarged liver. No a bnormal abdominal calcification. Regional bones and soft tissues normal for age. IMPRESSION: Hepatomegaly. No radiographic evidence of obstruction or ileus. Reviewed, dictated and finalized at location [facility]
--- NOTE | 2024-02-04 16:51 | ED_ITS ---
HPI - Abdominal Pain General Chief Complaint: Nausea/Vomiting/Diarrhea Stated Complaint: stomach hurts,stabbing pain Time Seen by Provider: 02/04/24 16:50 Source: patient Mode of arrival: ambulatory Limitations: no limitations History of Present Illness HPI narrative: Carolann is a 23-year-old female patient presenting to the clinic today with complaints of sharp stabbing generalized abdominal pain that started at 10 am. She reports she has woke up over the past 2 nights in been incontinent of urine. States she wakes up with her underwear soaked with what she thinks is urine. She denies any fevers, chills, nausea, vomiting, flank pain, or urinary symptoms other than the urinary incontinence. She reports she is 2 days late on her menses and is concerned that she may be . Last bowel movement was 2 or 3 days ago. History of constipation. Is currently sexually active. Denies any vaginal discharge or odor. She is rating her pain 10 at 10 currently. Related Data Home Medications ?Medication ?Instructions ?Recorded ?Confirmed ?Last Taken ?Type No Home Medications 02/04/24 02/04/24 Unknown History Allergies Allergy/AdvReac Type Severity Reaction Status Date / Time No Known Allergies Allergy Verified 02/04/24 17:01 Review of Systems Review of Systems: Pertinent positives per HPI. Patient denies any fever, chills, rash, headache, visual changes, dizziness, cough, runny nose, sore throat, shortness of breath, chest pain, palpitations, nausea, vomiting, diarrhea. PMFSH Past Medical History Medical History UTI (urinary tract infection) Miscarriage Surgical History Surgical History Status post dilation and curettage (11/28/18) suction D&C missed AB Family History Family History Father Diabetes mellitus Mother Diverticulitis Hypertension Social History Social History Smoking packs per day: 0.5 Smoking cigarettes per day: 10.0 Years smoked: 3 Smoking pack-years: 1.50 Smoking status: Current every day smoker Tobacco type: cigarettes Second hand tobacco smoke exposure: Yes Additional smoking assessment comments: only smoking 2 cigarettes a day Alcohol intake: never Substance use: never Substance use type: does not use Do You Feel Safe in your Home?: Yes Lack of Transportation: No Lack of Food: Never True Current Housing: I Have Housing Concerned About Future Housing: No Difficulty Paying Gas/Electric Bills: No Difficulty Paying for Meds: No Currently Unemployed: YES Education: Grade School Difficulty w/ Childcare or Family Care: No Living arrangements: with family Additional living arrangements comments: lives with mother Occupation/Education: unemployed Gender identity (if verbalized by the patient): Female Sexual Orientation (if Verbalized by the Patient): Straight or Heterosexual Spiritual care concerns: No Comments At the time of my signature, I reviewed and agree with the nursing past medical, surgical, social, and family history. There is no relevant family history pertinent to the patient complaint. Exam Narrative: General: Well-developed, well nourished, in no apparent distress. Head: Normocephalic, atraumatic. Cardio: Regular rate and rhythm, s1 and s2 normal, no murmur appreciated. Resp: Clear to auscultation bilaterally, no rhonchi, rales, wheezing or rubs. Abdomen: Soft, pliable, bowel sounds present in all quadrants,tender to palpation over the entire abdomen, no organomegly, no CVAT tenderness. Course Course Emergency Course: Portions of this record may have been created with voice recognition software. Level of Care: Express Care Visit Vital Signs Vital signs: Vital Signs Temperature 36.8 C 02/04/24 16:59 Pulse Rate 90 02/04/24 16:59 Respiratory Rate 16 02/04/24 16:59 Blood Pressure 132/80 02/04/24 16:59 Pulse Oximetry 99 02/04/24 16:59 Oxygen Delivery Room Air 02/04/24 16:59 Temperature 36.8 C 02/04/24 16:59 Pulse Rate 90 02/04/24 16:59 Respiratory Rate 16 02/04/24 16:59 Blood Pressure 132/80 02/04/24 16:59 Pulse Oximetry 99 02/04/24 16:59 Oxygen Delivery Room Air 02/04/24 16:59 Vital signs reviewed Transfer Transfered to: [facility] Transportation: Other (private car) Transfer rationale: Generalized abdomen pain Accepting physician: Ken Transfer comments: Sister will take to the ED. NPO MDM - Abdominal Pain MDM Narrative Medical decision making narrative: At the time of visit patient is resting comfortably on the exam table. Patient appears to be nontoxic. Labs: Urinalysis negative for any sign of infection. Bedside test was negative. Diagnostics: KUB x-ray shows hepatomegaly-no signs of ileus or obstruction Plan: Urinalysis is negative for any sign infection and bedside test was negative. KUB is negative for any sign of constipation obstruction or ileus. Recommend sending to the emergency room for further evaluation as patient does have remarkable hepatomegaly on the x-ray report. Patient would like to be transfer to [facility]. Contacted Ken at [facility] and report was given for continuity of care- she accepts patient for transfer. Supportive measures were discussed with the patient and they voiced understanding discharge instructions and agrees to treatment plan. Return precautions reviewed Differential Diagnosis Differential diagnosis: Likely abdominal pain, acute appendicitis, calculus of kidney, constipation, diverticulitis, endometriosis, gastroenteritis, pancreatitis and small bowel obstruction Lab Data Labs: Lab Results 02/04/24 Range/Units 17:17 POC Urine Color Yellow POC Urine Clarity Clear POC Urine pH 6.0 POC Ur Specif [place] 1.025 POC Urine Protein Negative (Negative) POC Ur Glucose (UA) Negative (Negative) POC Urine Ketones Negative (Negative) POC Urine Blood Negative (Negative) POC Urine Nitrite Negative (Negative) POC Urine Bilirubin Negative (Negative) POC Urine Urobilinogen 0.2 POC U Leukocyte Esteras Negative (Negative) POC Urine HCG, Qual Negative (Negative) Imaging Data Radiologist's impression: ITS Impressions Abdomen X-Ray 02/04/24 17:36 IMPRESSION: Hepatomegaly. No radiographic evidence of obstruction or ileus. Discharge Plan Discharge Clinical Impression: Abdominal pain Qualifiers: Abdominal location: generalized Qualified Code(s): R10.84 - Generalized abdominal pain Patient Disposition: Acute Care Hospital Condition: Stable Instructions: Antibiotic Form Patient Language: Japanese Prescriptions: No Action No Home Medications Follow-up/Referrals: PHYSICIAN,EMERGENCY DEPARTMENT TECHNICIAN [Primary Care Provider] - Time of Disposition: 17:50 Quality NIHSS Nursing Documentation ED NIH nursing documentation: reviewed/agree
[2024-02-04 16:59] VITALS: BP 132/80; PULSE 90; RESP 16; TEMP 36.8; O2SAT 99
[2024-02-04 17:19] LABS: BEDSIDEPREGUCG Negative (Negative); EDUAAPPEAR Clear; EDUABILI Negative (Negative); EDUABLOOD Negative (Negative); EDUACOLOR1 Yellow; EDUAGLUCOSE Negative (Negative); EDUAKETONE Negative (Negative); EDUALEUKO Negative (Negative); EDUANITRATE Negative (Negative); EDUAPROTEIN Negative (Negative); EDUASPGRAVITY 1.025; EDUAUROBILI 0.2
== END 2024-02-04 17:50 | disposition short-term general hospital (02) ==
PROVIDERS: Emergency Provider Nurse Practitioner Family
DX: R10.84 Generalized abdominal pain (principal); F17.210 Nicotine dependence, cigarettes, uncomplicated
CPT/HCPCS: 74018; 81003; 81025; 99213; G0463

== ENCOUNTER 2024-09-11 20:39 | Observation (INO) | payer OTHER, SELFPAY ==
[2024-09-11] VITALS (19 sets, daily range): BP systolic 98–116; BP diastolic 55–73; PULSE 77–96; O2SAT 94–100; BMI 28.3
--- OUTSIDE RECORDS SUMMARY | 2024-09-11 20:46 | XMS_ITS | Data Portability ---
Author Organization [employer] , [facility] Address [address] [place] [address] Care Team Providers Care Director Clinical Pharmacology Name Role Phone [facility] Junior Php Developer Assessment No assessment recorded. Plan of Treatment Reminders Order Date Submit Date Provider Last Modified By Organization Details Last Modified Time Details Appointments None recorded. Lab test, urine 2022 023 [email or web address] [facility], [address] [place], [address], 15:04:13 streptococc us group B, culture, unspecified specimen 2021 022 [employer] [facility], [address] [place], [address], 10:13:20 Referral None recorded. Procedures None recorded. Surgeries None recorded. Imaging US, transvagina l 2022 023 [email or web address] Not available 12:30:12 Medication Orders ondansetron 4 mg disintegrat ing tablet 2022 023 [id number], [address], [place], [place], [id number], 15:04:26 28 mg iron-800 mcg tablet 2022 023 [id number], [address], [place], [place], [id number], 15:04:24 Patient TargetsNo targets recorded. Patient InstructionsNo instructions recorded. Reason for Referral None Reported. Results Created Date Observation Date Name Description Value Unit Range Abnormal Flag Note LastModifiedBy Organization Detail LastModifiedTime 08/22/19 22 08/21/2021 UA REFLE X TO MICRO specimen type URINE CLEAN CATCH Not Available [facility] (Lab) [address] [place], [address], 08/21/2021 04:40:57 08/22/1908/21/2021 UA REFLE X TO MICRO color COLORL ESS Not Available [facility] (Lab) [place], [address], 08/21/2021 04:40:57 08/22/19 22 08/21/2021 UA REFLE X TO MICRO clarity CLEAR Not Available [facility] (Lab) [place], [address], 08/21/2021 04:40:57 08/22/19 22 08/21/2021 UA REFLE X TO MICRO specific gravity 1.005 1.001- 1.030 Not Available [facility] (Lab) [place], [address], 08/21/2021 04:40:57 08/22/19 22 08/21/2021 UA REFLE X TO MICRO pH, urine 7.0 5.0-9. 0 Not Available [facility] (Lab) [place], [address], 08/21/2021 04:40:57 08/22/19 22 08/21/2021 UA REFLE X TO MICRO leukocytes 25 neg abnormal Not Available [facility] (Lab) [place], [address], 08/21/2021 04:40:57 08/22/19 22 08/21/2021 UA REFLE X TO MICRO nitrite NEGATI VE neg Not Available [facility] (Lab) [place], [address], 08/21/2021 04:40:57 08/22/19 22 08/21/2021 UA REFLE X TO MICRO protein NEGATI VE mg/dL <30 Not Available [facility] (Lab) [place], [address], 08/21/2021 04:40:57 08/22/19 22 08/21/2021 UA REFLE X TO MICRO glucose NORMAL mg/dL norm Not Available [facility] (Lab) [place], [address], 08/21/2021 04:40:57 08/22/19 22 08/21/2021 UA REFLE X TO MICRO ketone NEGATI VE mg/dL neg Not Available [facility] (Lab) [place], [address], 08/21/2021 04:40:57 08/22/19 22 08/21/2021 UA REFLE X TO MICRO urobilinogen NORMAL mg/dL norm Not Available [facility] (Lab) [place], [address], 08/21/2021 04:40:57 08/22/19 22 08/21/2021 UA REFLE X TO MICRO bilirubin NEGATI VE mg/dL neg Not Available [facility] (Lab) [place], [address], 08/21/2021 04:40:57 08/22/19 22 08/21/2021 UA REFLE X TO MICRO blood NEGATI VE neg Not Available [facility] (Lab) [place], [address], 08/21/2021 04:40:57 08/22/19 22 08/21/2021 UA REFLE X TO MICRO WBC 1 /hpf <6 Not Available [facility] (Lab) [place], [address], 08/21/2021 04:40:57 08/22/19 22 08/21/2021 UA REFLE X TO MICRO RBC 1 /hpf <6 Not Available [facility] (Lab) [place], [address], 08/21/2021 04:40:57 08/22/19 22 08/21/2021 UA REFLE X TO MICRO squamous epithelial RARE /hpf Not Available [facility] (Lab) [place], [address], 08/21/2021 04:40:57 08/22/19 22 08/21/2021 DRUGS OF ABUSE PANEL , URINE amphetamines , urine NEGATI VE neg Not Available [facility] (Lab) [place], [address], 08/21/2021 04:49:51 08/22/19 22 08/21/2021 DRUGS OF ABUSE PANEL , URINE barbituates, urine NEGATI VE neg Not Available [facility] (Lab) [place], [address], 08/21/2021 04:49:51 08/22/19 22 08/21/2021 DRUGS OF ABUSE PANEL , URINE benzodiazapi chayo, urine NEGATI VE neg Not Available [facility] (Lab) [place], [address], 08/21/2021 04:49:51 08/22/19 22 08/21/2021 DRUGS OF ABUSE PANEL , URINE cannabinoids /THC, urine NEGATI VE neg Not Available [facility] (Lab) [place], [address], 08/21/2021 04:49:51 08/22/19 22 08/21/2021 DRUGS OF ABUSE PANEL , URINE cocaine, urine NEGATI VE neg Not Available [facility] (Lab) [place], [address], 08/21/2021 04:49:51 08/22/19 22 08/21/2021 DRUGS OF ABUSE PANEL , URINE methadone, urine NEGATI VE neg Not Available [facility] (Lab) [place], [address], 08/21/2021 04:49:51 08/22/19 22 08/21/2021 DRUGS OF ABUSE PANEL , URINE opiates, urine NEGATI VE neg Not Available [facility] (Lab) [place], [address], 08/21/2021 04:49:51 08/22/19 22 08/21/2021 DRUGS OF ABUSE PANEL , URINE phencyclidin es, urine NEGATI VE neg NOTE: RESUL TS OF THIS DRUG SCREE N SHOUL D BE USED FOR MEDIC AL PURPO SES ONLY AND NOT FOR LEGAL OR EMPLO YMENT PURPO SES. POSIT SAYDA RESUL TS ARE NOT CONFI RMED. MEDIC ATION S CONTA INING EPHED RINE MAY CAUSE FALSE POSIT SAYDA AMPHE TAMIN E CALL [phone], LAB, TO REQUE ST CONFI RMATI ON TESTI NG. IF CREAT ININE IS <40 mg/dL . RECOL LECTI ON IS SUGGE STED. AMPHE TAMIN E- 500 NG/ML KELLY TURAT E- 200 NG/ML BENZO DIAZE PINES - 200 NG/ML THC- 50 NG/ML COCAI NE- 150 NG/ML METHA DONE- 300 NG/ML OPIAT E- 300 MG/ML PCP- 25 NG/ML Not Available [facility] (Lab) [place], [address], 08/21/2021 04:49:51 08/22/19 22 08/21/2021 DRUGS OF ABUSE PANEL , URINE creatinine, urine 18.6 mg/dL 28-217 low Not Available [facility] (Lab) [place], [address], 08/21/2021 04:49:51 09/09/19 22 09/09/2021 GLUCO SE, GESTA ANI L SCREE N (50G) -135 CUTOF F glucose, gestational screen (50g)-135 cutoff 123 mg/dL <135 normal Not Available [address], [address], 09/09/2021 14:46:23 09/09/19 22 09/09/2021 CBC (INCL UDES DIFF/ PLT) white blood cell count 7.6 thous and/u L 3.8-10 .8 normal Not Available [address], [address], 09/09/2021 14:46:24 09/09/19 22 09/09/2021 CBC (INCL UDES DIFF/ PLT) red blood cell count 3.85 kaushal on/uL 3.80-5 .10 normal Not Available [address], [address], 09/09/2021 14:46:24 09/09/19 22 09/09/2021 CBC (INCL UDES DIFF/ PLT) hemoglobin 8.7 g/dL 11.7-1 5.5 low Not Available [address], [address], 09/09/2021 14:46:24 09/09/19 22 09/09/2021 CBC (INCL UDES DIFF/ PLT) hematocrit 27.4 % 35.0-4 5.0 low Not Available [address], [address], 09/09/2021 14:46:24 09/09/19 22 09/09/2021 CBC (INCL UDES DIFF/ PLT) MCV 71.2 fL 80.0-1 00.0 low Not Available [address], [address], 09/09/2021 14:46:24 09/09/19 22 09/09/2021 CBC (INCL UDES DIFF/ PLT) MCH 22.6 pg 27.0-3 3.0 low Not Available [address], [address], 09/09/2021 14:46:24 09/09/19 22 09/09/2021 CBC (INCL UDES DIFF/ PLT) MCHC 31.8 g/dL 32.0-3 6.0 low Not Available [address], [address], 09/09/2021 14:46:24 09/09/19 22 09/09/2021 CBC (INCL UDES DIFF/ PLT) RDW 14.6 % 11.0-1 5.0 normal Not Available [employer] [address], [address], 09/09/2021 14:46:24 09/09/19 22 09/09/2021 CBC (INCL UDES DIFF/ PLT) platelet count 177 thous and/u L 140-40 0 normal Not Available [address], [address], 09/09/2021 14:46:24 09/09/19 22 09/09/2021 CBC (INCL UDES DIFF/ PLT) MPV 11.1 fL 7.5-12 .5 normal Not Available [address], [address], 09/09/2021 14:46:24 09/09/19 22 09/09/2021 CBC (INCL UDES DIFF/ PLT) absolute neutrophils 5670 cells /uL 1500-7 800 normal Not Available [address], [address], 09/09/2021 14:46:24 09/09/19 22 09/09/2021 CBC (INCL UDES DIFF/ PLT) absolute lymphocytes 1444 cells /uL 850-39 00 normal Not Available [address], [address], 09/09/2021 14:46:24 09/09/19 22 09/09/2021 CBC (INCL UDES DIFF/ PLT) absolute monocytes 433 cells /uL 200-95 0 normal Not Available [address], [address], 09/09/2021 14:46:24 09/09/19 22 09/09/2021 CBC (INCL UDES DIFF/ PLT) absolute eosinophils 30 cells /uL 15-500 normal Not Available [address], [address], 09/09/2021 14:46:24 09/09/19 22 09/09/2021 CBC (INCL UDES DIFF/ PLT) absolute basophils 23 cells /uL 0-200 normal Not Available [address], [address], 09/09/2021 14:46:24 09/09/19 22 09/09/2021 CBC (INCL UDES DIFF/ PLT) neutrophils 74.6 % normal Not Available [address] [address] [place], [address], 09/09/2021 14:46:24 09/09/19 22 09/09/2021 CBC (INCL UDES DIFF/ PLT) lymphocytes 19.0 % normal Not Available [facility] [address] [address] [place], [address], 09/09/2021 14:46:24 09/09/19 22 09/09/2021 CBC (INCL UDES DIFF/ PLT) monocytes 5.7 % normal Not Available [facility] [place] [address] [address] [place], [address], 09/09/2021 14:46:24 09/09/19 22 09/09/2021 CBC (INCL UDES DIFF/ PLT) eosinophils 0.4 % normal Not Available [facility] [address], [address], 09/09/2021 14:46:24 09/09/19 22 09/09/2021 CBC (INCL UDES DIFF/ PLT) basophils 0.3 % normal Not Available [facility] [address], [address], 09/09/2021 14:46:24 09/09/19 22 09/09/2021 HIV 1/2 ANTIG EN/AN TIBOD Y,FOU RTH GENER ATION W/RFL HIV Ag/Ab, 4TH gen NON-RE ACTIVE non-re active normal HIV-1 antig en and HIV-1 /HIV- 2 antib odies were not detec philly. There is no labor atory evide nce of HIV infec tion. PLEAS E NOTE: This infor matio n has been discl osed to you from recor ds whose confi denti ality may be prote cted by state law. If your state requi res such prote ction , then the state law prohi bits you from susana barrios any furth er discl osure of the infor matio n witho ut the speci fic writt en conse nt of the perso n to whom it perta ins, or as other burdick permi tted by law. A gener al autho natalia ion for the relea se of medic al or other infor matmanasa n is NOT suffi cient for this purpo se. For addit ional infor matmanasa n pleas e refer to http: //[facility] nicol sandoval stdia gnost ics.c om/fa q/FAQ 106 (This link is being provi ded for infor conner nal/ educa ani l purpo ses only. ) The perfo rmanc e of this assay has not been clini sirisha valid ated in patie nts less than 2 years old. Not Available [facility] [address] [place], [address], 09/09/2021 14:46:24 09/09/19 22 09/09/2021 RPR (DX) W/REF L TITER AND CONFI RMATO RY TESTI NG RPR (DX) w/refl titer and confirmatory testing NON-RE ACTIVE non-re active normal Not Available [facility] [address] [address] [place], [address], 09/09/2021 14:46:25 09/17/19 22 09/19/2021 STREP TOCOC CUS, GROUP B CULTU RE streptococcu s, group B culture SEE NOTE STREP TOCOC CUS, GROUP B CULTU RE Micro Numbe r: [id number] Test Statu s: Final Speci men Sourc e: Vagin al/an orect al Speci men Quali ty: Adequ ate Resul t: No group B Strep tococ cus isola philly Note per CDC guide lines optim al recov everett is achie [place] by swabb ing both the lower vagin a and rectu m (thro ugh the anal sphin cter) . Not Available [facility] [address] [address] [place], [address], 09/19/2021 10:13:20 12/09/19 23 12/08/2022 pregn you test, urine HCG positi ve Not Available [facility] [address] [place], [address], 12/08/2022 12:51:23 09/01/19 22 08/24/2021 US, obste tric, limit ed No observ ation record ed. [email or web address] [facility] [address], [place], [address], 10/09/2021 00:26:29 12/10/19 23 12/08/2022 US, trans vagin al No observ ation record ed. [email or web address] [facility] [address], [place], [address], 12/09/2022 15:50:35 Result Notes None recorded. Problems Name Problem SNOMED Code Status Onset Date Resolution Date Notes Provider Name and Address Organization Details Recorded Time Pregnanc y, childbir th and puerperi um finding Completed 201912/31/2019 Encounte r for supervis ion of normal first pregnanc y, first trimeste r; Progress : Stable Added By: Madhuri Figueroa Add to Current Problems : NO ProblemS tatus: Resolve Not Available [facility] 2 20:32:45 Gestatio n period, 13 weeks [id number] Completed 201912/31/2019 13 weeks gestatio n of pregnanc y; Progress : Stable Added By: Madhuri Figueroa Add to Current Problems : NO ProblemS tatus: Resolve Not Available [facility] 2 20:32:45 Gestatio n period, 17 weeks [id number] Completed 201903/10/2020 17 weeks gestatio n of pregnanc y; Progress : Stable Added By: Heena Rodriguez Add to Current Problems : NO ProblemS tatus: Resolve Not Available [facility] 2 20:32:53 Pregnanc y, childbir th and puerperi um finding Completed 201903/10/2020 Encounte r for supervis ion of normal first pregnanc y, second trimeste r; Progress : Stable Added By: Heena Rodriguez Add to Current Problems : NO ProblemS tatus: Resolve Not Available [facility] 2 20:32:55 Gestatio n period, 19 weeks [id number] Completed 201903/10/2020 19 weeks gestatio n of pregnanc y; Progress : Stable Added By: Leyla Loya Add to Current Problems : NO ProblemS tatus: Resolve Not Available [facility] 2 20:32:49 Antenata l screenin g for malforma tion Completed 201903/10/2020 Encounte r for antenata l screenin g for malforma tions; Progress : Stable Added By: Amira Contreras Add to Current Problems : NO ProblemS tatus: Resolve Not Available [facility] 2 20:32:54 Gestatio n period, 24 weeks [id number] Completed 201903/10/2020 24 weeks gestatio n of pregnanc y; Progress : Stable Added By: Carolina Alejandra Add to Current Problems : NO ProblemS tatus: Resolve Not Available [facility] 2 20:32:48 Gestatio n period, 28 weeks [id number] Completed 202004/24/2020 28 weeks gestatio n of pregnanc y; Progress : Stable Added By: Cam Yeager Add to Current Problems : NO ProblemS tatus: Resolve Not Available [facility] 2 20:32:43 Normal pregnanc y in multigra neftali [id number] 4106 Completed 202005/29/2020 Encounte r for supervis ion of other normal pregnanc y, second trimeste r; Progress : Stable Added By: Carolina Alejandra Add to Current Problems : NO ProblemS tatus: Resolve; Start Date : 01/14/20 20 Encou nter for supervis ion of other normal pregnanc y, third trimeste r; Progress : Stable Added By: Otilia Deras Add to Current Problems : NO ProblemS tatus: Resolve Not Available [facility] 2 20:32:46 Hemorrha gic complica tion of pregnanc y [id number] Completed 202005/29/2020 Antepart um hemorrha ge, unspecif ied, third trimeste r; Progress : Stable Added By: Xuan Contreras Add to Current Problems : NO ProblemS tatus: Resolve Not Available [facility] 2 20:32:42 Gestatio n period, 30 weeks [id number] Completed 202004/24/2020 30 weeks gestatio n of pregnanc y; Progress : Stable Added By: Xuan Contreras Add to Current Problems : NO ProblemS tatus: Resolve Not Available [facility] 2 20:32:52 Gestatio n period, 32 weeks 1314099 Completed 202004/24/2020 32 weeks gestatio n of pregnanc y; Progress : Stable Added By: Georgie Peralta Add to Current Problems : NO ProblemS tatus: Resolve Not Available [facility] 2 20:32:46 Gestatio n period, 33 weeks [id number] Completed 202004/24/2020 33 weeks gestatio n of pregnanc y; Progress : Stable Added By: Jac Melendez Add to Current Problems : NO ProblemS tatus: Resolve Not Available [facility] 2 20:32:52 Headache 30493981 Completed 202004/24/2020 Headache ; Progress : Stable Added By: Peg Montoya Add to Current Problems : NO ProblemS tatus: Resolve Not Available [facility] 2 20:32:48 Clinical finding Completed 202005/29/2020 state, incident al; Progress : Stable Added By: Peg Montoya Add to Current Problems : NO ProblemS tatus: Resolve Not Available [facility] 2 20:32:45 Pregnanc y, childbir th and puerperi um finding Completed 202005/29/2020 Other specifie d pregnanc y related conditio ns, third trimeste r; Progress : Stable Added By: Georgie Peralta Add to Current Problems : NO ProblemS tatus: Resolve Not Available [facility] 2 20:32:52 Gestatio n period, 34 weeks [id number] Completed 202004/24/2020 34 weeks gestatio n of pregnanc y; Progress : Stable Added By: Georgie Peralta Add to Current Problems : NO ProblemS tatus: Resolve Not Available [facility] 2 20:32:48 Spotting per vagina in pregnanc y [id number] Completed 202005/29/2020 Spotting complica ting pregnanc y, third trimeste r; Progress : Stable Added By: Lefty Tapia Add to Current Problems : NO ProblemS tatus: Resolve Not Available [facility] 2 20:32:53 Gestatio n period, 35 weeks [id number] Completed 202005/29/2020 35 weeks gestatio n of pregnanc y; Progress : Stable Added By: Madhuri Figueroa Add to Current Problems : NO ProblemS tatus: Resolve Not Available [facility] 2 20:32:54 Disorder of pregnanc y Completed 202005/29/2020 Polyhydr amnios, third trimeste r, not applicab le or unspecif ied; Progress : Stable Added By: Otilia Deras Add to Current Problems : NO ProblemS tatus: Resolve Not Available [facility] [address] 20:32:[address] Concept Completed 202005/29/2020 Supervis ion of other high risk pregnanc ies, third trimeste r; Progress : Stable Added By: Jac Melendez Add to Current Problems : NO ProblemS tatus: Resolve Not Available [facility] 2 20:32:43 Disorder of pregnanc y Completed 202005/29/2020 Polyhydr amnios, third trimeste r, fetus 1; Progress : Stable Added By: Jac Melendez Add to Current Problems : NO ProblemS tatus: Resolve Not Available [facility] 2 20:32:44 Gestatio n period, 36 weeks [id number] Completed 202005/29/2020 36 weeks gestatio n of pregnanc y; Progress : Stable Added By: Khadra Chavarria Add to Current Problems : NO ProblemS tatus: Resolve Not Available [facility] 2 20:32:47 Antenata l screenin g Completed 202005/29/2020 Encounstiven r for antenata l screenin g for Streptoc occus B; Progress : Stable Added By: Xuan Contreras Add to Current Problems : NO ProblemS tatus: Resolve Encounte r for other specifie d antenata l screenin g; Progress : Stable Added By: Otilia Deras Add to Current Problems : NO ProblemS tatus: Resolve; Start Date : 12/03/19 20 Not Available [facility] 2 20:32:50 Gestatio n period, 37 weeks [id number] Completed 202005/29/2020 37 weeks gestatio n of pregnanc y; Progress : Stable Added By: Georgie Peralta Add to Current Problems : NO ProblemS tatus: Resolve Not Available [facility] 2 20:32:50 Gestatio n period, 38 weeks 58502345 Completed 202005/29/2020 38 weeks gestatio n of pregnanc y; Progress : Stable Added By: Otilia Deras Add to Current Problems : NO ProblemS tatus: Resolve Not Available [facility] 2 20:32:46 Eruption [id number] Completed 202004/19/2021 Rash and other nonspeci fic skin eruption ; Severity : Moderate Progress : Stable Added By: Jac Melendez Add to Current Problems : YES ProblemS tatus: Current [facility] [address] [place], [address] , [employer] [facility] 2 13:10:16 Lochia finding Completed 202004/19/2021 Encounte r for routine postpart um follow-u p; Severity : Moderate Progress : Stable Added By: Jac Melendez Add to Current Problems : YES ProblemS tatus: Current RICH LEIGH CN[facility] [address] [place], [address] , [facility] 2 13:10:11 Depressi on screenin g Completed 202009/23/2021 Encounte r for screenin g for maternal depressi on; Progress : Stable Added By: Jac Melendez Add to Current Problems : YES ProblemS tatus: Current Sherice kramer, [facility] 2 14:58:59 Nausea and vomiting [id number] Completed 2021 Rx for Octaviano WATTS, [facility] [address] [place], [address] , [facility] 2 22:01:04 Pregnanc y 32211432 Completed 2021 A+/RI/NR x3 TEODORO WATTS, [facility] [address] [place], [address] , [facility] [employer] [facility] IV 2 22:01:04 Body mass index 30+ - obesity 451193123 Active 2021 Madhuri Figueroa, [facility] [address] [place], [address] , [facility] 2 15:39:01 Pregnanc y 56361411 Completed 202206/28/2024 Stephanie kramer, [facility] 5 13:14:19 Problem Notes None recorded. Procedures Surgical History Date Name Laterality Status Provider Name and Address Organization Details Recorded Time dilation and curettage of uterus completed Karina Morales [facility] [address] [place], [address], [facility] 02/16/2021 15:01:41 Imaging Results None recorded. Procedure Notes None recorded. Medical Equipment None Reported. Allergies No known drug allergies Medications Name Sig Start Date Stop Date Status Note LastModified by Organization Details LastModified Time ondansetr on HCl 4 mg tablet Take 1 tablet every 4-6 hours by oral route. 06/18 completed Not Available Not Available Not Available methylpre dnisolone 4 mg tablet Day 1: take 1 tablet every 6 hours; Day 2: take 1 tablet with meals and 2 tablets at bedtime; Day 3: take 1 tablet with meals and bedtime; D4: take one tablet with meals D5: 1 tablet with breakfas t and bedtime D6: 1 tablet with breakfas t 02/17 completed methylPR EDNISolo ne 4 mg oral tablet RxNorm: 664132 Allow Substitu tion: True Refill Denied: No Edited by: Apple Do) on 06/02/19 Stopped by: Apple Do) on Not Available Not Available Not Available Diflucan 150 mg tablet take 1 tablet (150 mg) PO 07/27 completed Not Available Not Available Not Available butalbita l-acetami nophen-ca ffeine 50 mg-325 mg-40 mg tablet TAKE 1 TABLET BY MOUTH EVERY 6 HOURS NEEDED 02/17 completed Not Available Not Available Not Available famotidin e 20 mg tablet take 1 tablet (20 mg) by oral route 2 times per day 05/21 completed famotidi ne 20 mg oral tablet RxNorm: [id number] Allow Substitu tion: True Refill Denied: No Edited by: Otilia Calle ) on 05/22/19 Stopped by: Otilia Calle ) on 05/22/19 Not Available Not Available Not Available ferrous sulfate 325 mg (65 mg iron) tablet take 1 tablet (325 mg) by oral route 2 times per day 02/17 completed ferrous sulfate 325 mg (65 mg iron) oral tablet RxNorm: [id number] Allow Substitu tion: True Refill Denied: No Edited by: Maru Doran ) on 03/12/19 Stopped by: Maru Doran ) on Not Available Not Available Not Available docusate sodium 100 mg capsule TAKE 1 CAPSULE BY MOUTH EVERY 12 HOURS 12/08 completed Not Available Not Available Not Available hydroxyzi ne HCl 25 mg tablet take 1 to 2 tablets (25 mg) by oral route 3 times per day as needed for nausea,h eadaches ,insomni a, anxiety or pain and may substitu e as a capsule or vistaril 05/21 completed hydrOXYz ine HCL 25 mg oral tablet RxNorm: [id number] Allow Substitu tion: True Refill Denied: No Edited by: Otilia Calle ) on 05/22/19 Stopped by: Otilia Calle ) on 04/01/20 21 Not Available Not Available Not Available ibuprofen 600 mg tablet TAKE 1 TABLET BY MOUTH EVERY 6 HOURS FOR 10 DAYS 12/08 completed Not Available Not Available Not Available methylpre dnisolone 4 mg tablets in a dose pack FOLLOW DIRECTIO NS ON PACKAGE. 02/17 completed Not Available Not Available Not Available ferrous sulfate 325 mg (65 mg iron) tablet,de layed release Take 1 tablet by oral route. 10/01 completed Not Available Not Available Not Available ondansetr on 4 mg disintegr ating tablet place 1 tablet (4 mg) on top of the tongue where it will dissolve ,then swallow by translin gual route, every 6hrs PRN nausea/v omiting 2022 active Not Available Not Available Not Avai lable fluticaso ne propionat e 50 mcg/actua tion nasal spray,cassidy pension spray 2 sprays IN EACH NOSTRIL EVERY DAY active Not Available Not Available No t Available metoclopr amide 10 mg tablet Take 1 tablet 4 times a day by oral route. 06/18 completed Not Available Not Available Not Available 02/17 completed Allow Substitu tion: False Refill Denied: No Refill DateOccu rred: 12/03/19 Edited by: samantha (Leyla Loya) on 12/03/19 20 Stopped by: Leyla Tran) on Not Available Not Available Not Available Venofer 200 mg iron/10 mL intraveno us solution Inject 200 mg every week by intraven ous route for 21 days. 10/01 completed Not Available Not Available Not Available 28 mg iron-800 mcg tablet Take 1 tablet every day by oral route. 2022 active Not Available Not Available Not Avai lable Fioricet 50 mg-300 mg-40 mg capsule take 1 - 2 capsules by oral route every 4 hours as needed not to exceed 6 capsules per 24hrs and may use any dose or caps/tab s 05/21 completed Fioricet 50-300-4 0 mg oral capsule RxNorm: [id number] Allow Substitu tion: True Refill Denied: No Edited by: Katlyn Callebet h ) on 05/22/19 21 Stopped by: cyrus( Otilia Deras ) on 05/22/19 21 Not Available Not Available Not Available Gummies 400 mcg-35 mg-25 mg-5 mg chewable tablet Take 1 tablet every day by oral route. 12/08 completed Not Available Not Available Not Available Vitals Date Recorded Body height Body mass index (BMI) Body weight Body temperature Systolic And Diastolic Provider Name and Address Organization Details Last Updated DateTime 09/16/2021 162.56 cm 32.6 kg/m2 10119.5 503 g 97.8 [degF] 132/76 mm[Hg] Carolina Reid [facility] 14:30:27 Date Recorded Body weight Provider Name an d Address Organization Details Last Updated DateTime 09/23/2021 87299.875174 [facility] [place], [address], [place] [facility] 09/23/2021 15:49:47 Date Recorded Body height Body mass index (BMI) Body temperature Systolic And Diastolic Provider Name and Address Organization Details Last Updated DateTime 09/23/2021 162.56 cm 32.9 kg/m2 97.3 [degF] 122/74 mm[Hg] Sherice Henry [place] - [facility] 09/23/2021 14:59:17 Date Recorded Body weight Provider Name an d Address Organization Details Last Updated DateTime 10/01/2021 82219.43832 g Radha JONES [address] [place], [address], [place] [facility] 10/01/2021 14:40:42 Date Recorded Body height Body temperature Body mass index (BMI) Systolic And Diastolic Provider Name and Address Organization Details Last Updated DateTime 10/01/2021 162.56 cm 97 [degF] 32.3 kg/m2 122/76 mm[Hg] Nahomy Shi [facility] 10/01/2021 14:39:04 Date Recorded Body height Body mass index (BMI) Body weight Body temperature Systolic And Diastolic Provider Name and Address Organization Details Last Updated DateTime 10/08/2021 162.56 cm 32.6 kg/m2 10819.5 503 g 97 [degF] 122/74 mm[Hg] Nahomy Shi [facility] 15:13:49 Date Recorded Body height Body mass index (BMI) Body weight Systolic And Diastolic Provider Name and Address Organization Details Last Updated DateTime 12/08/2022 162.56 cm 23 kg/m2 61482.38 g 118/78 mm[Hg] Xuan Contreras [facility] 12/08/2022 14:32:34 Social History Question Answer Notes LastModified by [employer] Details LastModified Time Tobacco Smoking Status Former Smoker Sherice kramer, [facility] 03/01/2021 11:17:32 Are You Blind Or Do You Have Difficulty Seeing? No Information not available 03/01/2021 Are You Deaf Or Do You Have Serious Difficulty Hearing? No Information not available 03/01/2021 What Type Of Diet Are You Following? REGULAR Information not available 03/01/2021 How Many Children Do You Have? 1 Information not available 02/16/2021 What Is Your Relationship Status? Single Information not available 02/16/2021 Are You Sexually Active? Yes Information not available 02/16/2021 What Types Of Sporting Activities Do You Participate In? Walking Information not available 03/01/2021 Sex: Unknown Functional Status Question Answer Note LastModified by [employer] Details LastModified Time Do you use any illicit or recreational drugs? No Information not available 03/01/2021 Do you or have you ever used any other forms of tobacco or nicotine? No Information not available 03/01/2021 What is your level of alcohol consumption? None [email or web address] Information not available 02/17/2021 What is your exercise level? Occasional Information not available 03/01/2021 Mental Status None recorded. Family History Relationship Description Onset Age of this Age Resolved Age Notes LastModified by Organization Details LastModified Time Father No current problems or disability Not available 01/21 15:01:06 Mother No current problems or disability Not available 01/21 15:01:06 Medical History Condition Response Other Cancer N High Blood Pressure N Colon Cancer N Cytomegalovirus N Hyperthyroidism N Breast Cancer N Herpes (HSV) N Blood Transfusion N MRSA N Lung Cancer N Hypothyroidism N Depression N Incontinence N Panic Attacks N Neurological Disorder N Deep Vein Thrombosis N Anxiety Disorder N Autoimmune disease N Arthritis N Tuberculosis/Positive PPD N Shingles N Polycystic Ovarian Syndrome N Cervical Cancer N Chlamydia N Hematuria N Stroke N Varicosities N Crohn's Disease N Seasonal allergies N Alzheimer's/Dementia N COPD/Emphysema N HPV/Genital Warts N Endometriosis N IBS (Irritable Bowel Syndrome) N History of Abnormal Pap N High Cholesterol N Liver Disease N Kidney Infection N Fibromyalgia N Ulcer N Kidney Disease N HIV N Gallbladder disease N Sickle Cell Disease/Trait N Von Willebrand disease N ADD/ADHD N Eating Disorder N Anemia N Diabetes Mellitus (non-insulin dependent ) N Ovarian Problems N Multiple Sclerosis N Gonorrhea N Frequent Urinary Tract infections N Osteopenia N Headaches/migraines N GERD (reflux) N Ovarian Cancer N Diabetes (insulin dependent) N Seizures/Epilepsy N Fibroids N Heart Attack N Asthma N Lupus N Endometrial Cancer N Rubella N Blood Clotting Disorder N Bipolar Disorder N Diabetes Mellitus (during ) N Ulcerative Colitis N Hepatitis N Heart Disease N Pulmonary Embolism N RPR N Chicken Pox N Osteoporosis N Gynecological History Statement/Question Response Date of Last Pap Smear Current Control Method Age at Menarche 14 Date of LMP 09/21/2022 Obstetrics History GPAL:G 4 P 2 0 1 2 Type Value Full Term 2 Spontaneous 1 Living 2 Total 4 Past Encounters Encounter ID Performer Location Encounter Start Date Encounter Closed Date Diagnosis/Indication Diagnosis SNOMED-CT Code Diagnosis ICD10 Code Diagnosis Note [id number] SAMARA Veliz [facility] [address] [place] [address] 02/17/2021 17:02:24 03/02/2021 13:14:45 Menstrual period late 92048945 N92.6 Urine preg markel test positive 016520692 Z32.01 According to LMP, Carolann should be 16 weeks . U/S not available tonight to confirm IUP and SANTOSH. Bedside abdominal U/S does not show an IUP as would be expected at 16 weeks. Reports nausea just started recently and that prompted her to take a test. She does report spotting in November. Carolann denies vaginal bleeding, pelvic pain, and fever. Likely off on LMP and very early and will need TVUS to confirm. Quant today. Short interval - 05/24/20. Constipation 85447268 K5 9.00 [id number] SAMARA Veliz [facility] [address] [place] [address] 03/01/2021 10:26:22 03/15/2021 12:27:42 57743718 Z33.1 Routine an tenatal care 978521428 Z34.01 Z34.81 O09.511 O09.521 Depression screening 171 989637 Z13.31 Nausea and vomiting 1693 2000 R11.2 Small, frequent meals, skip. 25 mg B6 every 6 hours. Increase hydration. [id number] RICH LEIGH, [address] [address] 04/19/2021 11:44:23 04/20/2021 11:06:17 Gestation period, 14 weeks 91634420 Z3A.14 Normal pre gnancy in multigravida 4395236599 43961 Z34.82 [id number] Anum plata, [address] [address] 05/27/2021 10:27:44 06/02/2021 15:03:10 screening for malformation 046676456 Z36.3 [id number] TEODORO WATTS [address] [address] 06/18/2021 15:10:50 06/19/2021 10:52:21 Vaginitis 47781198 N76.0 complaints of vaginal pain and irritation with discharge. yeast noted on exam rx and sureswab sent. Gestation period, 23 weeks 39575479 Z3A.23 IUP @ 23+ wks. No OB complaints . RTO 4 wks fwb reassuring . [id number] HANNA MCGREGOR MD [address] [address] 07/27/2021 14:17:45 09/06/2021 15:11:58 Gestation period, 27 weeks 89953859 Z3A.27 IUP @ 27+ wks. No OB complaints . Lab and TDaP orders given today. Plans to return to complete next week.EPDS neg.RTO in 1 week for labs 2 wks for FRANTZ screening 2437 13769 Z36.9 Depression screening 171 552385 Z13.31 EPDS [id number] HANNA MCGREGOR MD [facility] [address] [place] [address] 08/24/2021 15:50:20 08/24/2021 17:06:07 Gestation period, 32 weeks 1282608 Z3A.32 Routine an tenatal care 057027405 Z34.03 Z34.83 O09.513 O09.523 Patient couldnt stay today- desires to return tomorrow for GCT and third trim labs [id number] [facility] [address] [place] [address] 09/08/2021 15:17:09 09/15/2021 13:41:41 Routine care 225019134 Z34.03 Z34.83 O09.513 O09.523 Depression screening 171 483927 Z13.31 Gestation period, 28 weeks 36474247 Z3A.28 [id number] Madhuri Figueroa CNM [facility] [address] [place] [address] 09/16/2021 14:24:55 09/16/2021 15:00:49 Normal in multigravida 1090210440 76126 Z34.83 Gestation period, 36 weeks 00037950 Z3A.36 Labor precaution s given. FM counts discussed. F/u in L&D if experienci ng decreased movement, SROM, or regular uterine contractio ns increasing in frequency and/or intensity. screening 2437 38497 Z36.85 [id number] Madhuri Figueroa CNM [address] [address] 09/23/2021 14:36:45 09/23/2021 16:40:30 Normal in multigravida 0178196141 29291 Z34.83 Gestation period, 37 weeks 22736861 Z3A.37 Labor precaution s given. FM counts discussed. F/u in L&D if experienci ng decreased movement, SROM, or regular uterine contractio ns increasing in frequency and/or intensity. Iron defic iency anemia of 166355731 O99.019 Hgb 8.7 - venofer infusion set up at [facility]. [id number] TEODORO WATTS CNM [address] [address] 10/01/2021 14:24:24 10/03/2021 19:31:47 Gestation period, 38 weeks 98076625 Z3A.38 IUP @ 38+ wks. No OB complaints . Labor precaution s reviewed. RTO 1 wk. plan 40 week IOL. [id number] LEANDRO JONES[address] [address] 10/08/2021 15:06:12 10/08/2021 15:28:25 Gestation period, 39 weeks 41594293 Z3A.39 IUP @ 39+ wks. s/p triage visit yesterday. cx 4cm today Labor precaution s reviewed. IOL next m[facility] at [facility] already scheduled. [id number] HAYLIE WEBER, CODIE [address] [address] 12/08/2022 14:07:43 12/09/2022 12:30:12 Amenorrhea 15744373 Z32.00 Pt presents today for a confirmati on of visit. has not been previously confirmed at another healthcare facility. Pt voiced that she is happy about this . TVUS today showed:IUP with Cardiac Activity. SANTOSH consistent with LMP. SANTOSH: 07/06/2023 Gestationa l Age: 10w 0dFHT: 175 First trimester teaching provided.- --Foods and activities to avoid---Sa fe meds---Johnathan entation to practice-- -Delivery locations- --FRANTZ visit progressio n---Prenat al vitamins daily--- Toxoplasmo sis precaution s reviewed-- -S/S of SAB reviewed and when to seek care RTC 2 weeks for 1st OB, Labs, and Physical. --BMI: 23 Nausea and vomiting 1693 1999 R11.2 Patient states that zofran is the only medication that has worked for her nausea.Pt educated on smaller/mo re frequent meals, pushing p.o. water intake, and avoiding spicy/frie d foods. Rx for zofran sent. Pt encouraged to notify HCP if no relief. Pt states understand ing of POC. Health Concerns Section Related Observation LastModified by Organization Detai ls LastModified Time None Recorded Concern Status LastModified by Organization Details LastModified Time None Recorded Advance Directives Directive None Recorded Payers Insurance Date Sequence Insurance Name Policy Number Policy Serrato Covered Member ID Serrato Member ID Guarantor Name 11/25/2022 1 [facility] (MEDICAID REPLACEMENT - HMO) [id number] Carolann Villa [id number] Carolann Villa 02/27/2023 1 [facility] - DOS ON OR AFTER 20 (MEDICAID REPLACEMENT - HMO) Carolann Villa [id number] Carolann Villa Notes Date Note Type Note Provider Name and Address Organization Details Recorded Time 09/16/2021 text/html OB ProblemReport ed bypatient.Associated Symptoms:no abdominal pain; no cramping; no contractions; normal movement; no bleeding; no ROM; no vaginal discharge; no vaginal/vulvar itching or irritation; no dysuria; no frequency; no urgency; no hematuria; no fever; no nausea; no emesis; no constipation; no diarrhea/loose stool; no edema; no visual changes; no headache; no dizziness; no decrease in urine volume; no breathlessness; no hyper-reflexia Madhuri Figueroa CNM [address] [facility], [place], [address], [facility] [employer] 09/16/2021 14:47:26 09/23/2021 text/html Carolann__ is her e today for a routine OB visit. She is currently at _37.1 weeks gestation.She is taking vitamins. She has felt movement. She denies the presence of vaginal bleed, leaking fluid, abdominal cramps, nausea, vomiting.She states she has been feeling fatigued, slight dizzy, light headed, and some contractions aMdhuri Figueroa, [facility] [address] [place], [address], [facility] 09/27/2021 21:00:48 10/01/2021 text/html OB ProblemReport ed bypatient.Location:[place] Quality:sharp; cramping; pressure Associated Symptoms:contractions TEODORO WATTS, [facility] [address] [place], [address], [facility] IV 10/03/2021 19:31:35 10/08/2021 text/html OB ProblemReport ed bypatient.Location:[place]; lower back; hip Associated Symptoms:normal movement; no bleeding; no ROM; no vaginal discharge; no vaginal/vulvar itching or irritation; no dysuria; no frequency; no urgency; no hematuria; no fever; no nausea; no emesis; no constipation; no diarrhea/loose stool; no visual changes; no headache; no decrease in urine volume; no breathlessness; no hyper-reflexia;abdomi nal pain;cramping;contrac tions;edema;dizziness Notes:patient feet are swollen TEODORO WATTS, [facility] [address] [place], [address], [facility] IV 10/08/2021 15:28:19 12/08/2022 text/html Pt presents for OB confirmation visit. Pt's LMP 09/21/2022. Pt denies bleeding, cramping, or n/v. Pt has no other concerns. HAYLIE WEBER, CODIE [address] [place], [address], [facility] [employer] [facility] 12/08/2022 15:04:24 OBGyn Episode Ob Episode Information Episode Created Date Number of Fetuses Patient Bloodtype Patient rh Status Prepregnancy Weight lbs Domestic Partner Domestic Partner Phone Father Name Cosmetician Apprentice Status 03/01/19 22 1 A Positive 163 CLOSED Fetus Data First Name Last Name Admitted to NICU Weight (g) Sex Living Outcome Pediatric Complications Fetus ID Race Codes Race Delivery Type false Full Term [id number] Problems Problem Notes Short-interval - NS VD 05/24/20 Problem Name Start Date End Date Resolution Snomed Code Not e Nausea and vomiting 03/01/2021 [id number] Rx for Reglan 03/01/2021 [id number] A+/RI/NRx 3 Santosh Calculation Initial Santosh Date Initial Exam Date Initial Exam Provider Initial Ultrasound Date Last Menstrual Period Date Ultra Sound Weeks Gestation 10/13/2021 03/01/2021 03/01/2021 12/13/2020 7 Eighteen To Twenty Week Santosh Update Ultra Sound Date Fundal Height At Umbil Quickening Date Ultra Sound Latest Weeks Gestation Final Santosh Confirmed By Final Santosh Confirmed Date Final Santosh Date Ultra Sound Latest Days Gestation 0 [email or web address] 10/01/2021 10/14/19 22 0 Pre- Flowsheet Flowsheet Date 03/01/2021 Mcgregor Score Blood Edema Fundus Height Fundus Units Glucose Ketones Leukocytes Nitrite Labor Signs Protein Cervic Dilation Cervic Effacement Cervic Station none Type Weight in lbs Pre/Post Dialysis Refused With clothes 163.250774229150 BP Diastolic BP Location Tested BP Systolic BP Type 68 R arm 122 sitting Fetus Heart Rate Present A 153 Fetus Movement Comments NOB visit and labs completed today. c/o N/V and states she can't keep Zofran (dissolvable) down and it hasn't been effective. Rx for Reglan. Flowsheet Date 04/19/2021 Mcgregor Score Blood Edema Fundus Height Fundus Units Glucose Ketones Leukocytes Nitrite Labor Signs Protein Cervic Dilation Cervic Effacement Cervic Station none none neg Type Weight in lbs Pre/Post Dialysis Refused Weight 164.70372142541 BP Diastolic BP Location Tested BP Systolic BP Type 72 112 Fetus Heart Rate Present A 149 Present Fetus Movement A Yes Comments S/S SAB reviewed. RTC 5 week s FRANTZ with anatomy, sooner for needs. Flowsheet Date 05/27/2021 Mcgregor Score Blood Edema Fundus Height Fundus Units Glucose Ketones Leukocytes Nitrite Labor Signs Protein Cervic Dilation Cervic Effacement Cervic Station Type Weight in lbs Pre/Post Dialysis Refused BP Diastolic BP Location Tested BP Systolic BP Type Fetus Heart Rate Present Fetus Movement Comments not seen left after Anatomy US-complete 62%ile Flowsheet Date 06/18/2021 Mcgregor Score Blood Edema Fundus Height Fundus Units Glucose Ketones Leukocytes Nitrite Labor Signs Protein Cervic Dilation Cervic Effacement Cervic Station none 24 wks none none neg Type Weight in lbs Pre/Post Dialysis Refused BP Diastolic BP Location Tested BP Systolic BP Type 68 110 Fetus Heart Rate Present A 144 Present Fetus Movement A Yes Comments complaints of vaginal pain a nd irritation with discharge. yeast noted on exam rx and sureswab sent. Flowsheet Date 07/27/2021 Mcgregor Score Blood Edema Fundus Height Fundus Units Glucose Ketones Leukocytes Nitrite Labor Signs Protein Cervic Dilation Cervic Effacement Cervic Station none neg Type Weight in lbs Pre/Post Dialysis Refused Weight 180.283085503685 BP Diastolic BP Location Tested BP Systolic BP Type 64 R arm 108 sitting Fetus Heart Rate Present Fetus Movement Comments Flowsheet Date 08/24/2021 Mcgregor Score Blood Edema Fundus Height Fundus Units Glucose Ketones Leukocytes Nitrite Labor Signs Protein Cervic Dilation Cervic Effacement Cervic Station Type Weight in lbs Pre/Post Dialysis Refused Weight 184.844453937302 BP Diastolic BP Location Tested BP Systolic BP Type 68 110 Fetus Heart Rate Present Fetus Movement Comments Flowsheet Date 09/08/2021 Mcgregor Score Blood Edema Fundus Height Fundus Units Glucose Ketones Leukocytes Nitrite Labor Signs Protein Cervic Dilation Cervic Effacement Cervic Station none 33 none none neg Type Weight in lbs Pre/Post Dialysis Refused Weight 189.274798455618 BP Diastolic BP Location Tested BP Systolic BP Type 60 100 Fetus Heart Rate Present A 130 Fetus Movement A Yes Comments 3rd tri labs today Flowsheet Date 09/16/2021 Mcgregor Score Blood Edema Fundus Height Fundus Units Glucose Ketones Leukocytes Nitrite Labor Signs Protein Cervic Dilation Cervic Effacement Cervic Station trace 38 none Camden Corado neg Type Weight in lbs Pre/Post Dialysis Refused Weight 190.832591694519 BP Diastolic BP Location Tested BP Systolic BP Type 76 132 Fetus Heart Rate Present A 133 Fetus Movement A Yes Comments Fe infusion scheduled @ [facility] . GBS collected. No OB concerns. Flowsheet Date 09/23/2021 Mcgregor Score Blood Edema Fundus Height Fundus Units Glucose Ketones Leukocytes Nitrite Labor Signs Protein Cervic Dilation Cervic Effacement Cervic Station trace 39 cm none none neg Type Weight in lbs Pre/Post Dialysis Refused Weight 191.421201646218 BP Diastolic BP Location Tested BP Systolic BP Type 74 122 Fetus Heart Rate Present A 132 Fetus Movement A Yes Comments No OB concerns. Flowsheet Date 10/01/2021 Mcgregor Score Blood Edema Fundus Height Fundus Units Glucose Ketones Leukocytes Nitrite Labor Signs Protein Cervic Dilation Cervic Effacement Cervic Station none 38 cm Uterine Contract ions 3cm 50% -3 Type Weight in lbs Pre/Post Dialysis Refused Weight 188.138884238431 BP Diastolic BP Location Tested BP Systolic BP Type 76 122 Fetus Heart Rate Present A 141 Present Fetus Movement A Yes Comments plan 40 week IOL at [facility] if still . scheduled today for 6am on 10/13Reports irregular contractions, denies LOF, VB Flowsheet Date 10/08/2021 Mcgregor Score Blood Edema Fundus Height Fundus Units Glucose Ketones Leukocytes Nitrite Labor Signs Protein Cervic Dilation Cervic Effacement Cervic Station none 40 cm none Uterine Contract ions neg 4cm 70% -2 Type Weight in lbs Pre/Post Dialysis Refused Weight 190.453098640764 BP Diastolic BP Location Tested BP Systolic BP Type 74 122 Fetus Heart Rate Present A 141 Present Fetus Movement A Yes Comments s/p triage visit yesterday. Labor precautions reviewed. IOL next Monday at [facility]. already scheduled. Menstrual History Last Menstrual Date Menses Monthly On Bcp Conception Prior Menses Frequency Hcg Plus Date Menarche Onset Age 1012/13/2020 false false Genetic Screening And Infection History Question Response Note Recent Travel History Outside of Country false Cystic Fibrosis false Any Other Genetic History false Benjamin Disease false Other Infection History false Thalassemia (Czech, Slovak, Mediterranean, Or Background): MCV < 80 false Patient Or Baby's Father Had A Child With Defects Not Listed Above false Live With Someone With TB Or Exposed To TB false Patient's Age Will Be 35 Years Or Older At Estim ated Date of Delivery false Recurrent Loss, Or A Stillbirth false Hemoglobinopathy Or Carrier false Patient Or Partner Has History Of Genital Herpes false Intellectual Disability/Autism false Maternal Metabolic Disorder (eg, Type 1 Diabetes , PKU) false History of Hepatitis false Adriel-Sachs (eg, Nondenominational, Cajun, Mexican-Argentine) f alse History Of STD, Gonorrhea, Chlamydia, HPV, Syphi lis false Prior GBS-infected child false History of HIV false Personal or Family History o f Neural Tube Defect (Meningomyelocele, Spina Bifida, Or Anencephaly) false Hemophilia Or Other Blood Disorders false Mental Retardation/Autism false Jack's Chorea false If Yes, Was Person Tested For Fragile X? false Other Inherited Genetic Or Chromosomal Disorder false If Yes, Agent(s) And Strength/Dosage false Sickle Cell Disease Or Trait () false Personal or Family History of Congenital Heart D efect false Rash Or Viral Illness Since Last Menstrual Perio d false Muscular Dystrophy false Medications (including Suppl ements, Vitamins, Herbs, OTC Drugs), Illicit/Recreational Drugs, Alcohol false Other Structural Defect false Down Syndrome false Delivery Information Delivery Date Delivery Type Labor Anesthesia Weeks Gestation Incision Type Labor Labor Length Hrs Delivered By Post Complications Tubal Sterilization Discharge Date Comments 2 Sponta neous Regional-Ep idural 39.4 false Duffe, Teodoro CNM None Discharge Information Feeding Method Contraceptive Method Maternal HG B and HCT Levels Ob Episode Information Episode Created Date Number of Fetuses Patient Bloodtype Patient rh Status Prepregnancy Weight lbs Domestic Partner Domestic Partner Phone Father Name Cosmetician Apprentice Status 02/18/20 21 1 CLOSED Fetus Data First Name Last Name Admitted to NICU Weight (g) Sex Living Outcome Pediatric Complications Fetus ID Race Codes Race Delivery Type 3175.14 4 M Full Term [id number] Sanotsh Calculation Initial Santosh Date Initial Exam Date Initial Exam Provider Initial Ultrasound Date Last Menstrual Period Date Ultra Sound Weeks Gestation 0 Eighteen To Twenty Week Santosh Update Ultra Sound Date Fundal Height At Umbil Quickening Date Ultra Sound Latest Weeks Gestation Final Santosh Confirmed By Final Santosh Confirmed Date Final Santosh Date Ultra Sound Latest Days Gestation 0 0 Menstrual History Last Menstrual Date Menses Monthly On Bcp Conception Prior Menses Frequency Hcg Plus Date Menarche Onset Age Delivery Information Delivery Date Delivery Type Labor Anesthesia Weeks Gestation Incision Type Labor Labor Length Hrs Delivered By Post Complications Tubal Sterilization Discharge Date Comments 1 None 39 Discharge Information Feeding Method Contraceptive Method Maternal HG B and HCT Levels Ob Episode Information Episode Created Date Number of Fetuses Patient Bloodtype Patient rh Status Prepregnancy Weight lbs Domestic Partner Domestic Partner Phone Father Name Cosmetician Apprentice Status 05/07/19 22 1 CLOSED Fetus Data First Name Last Name Admitted to NICU Weight (g) Sex Living Outcome Pediatric Complications Fetus ID Race Codes Race Delivery Type [id number] Santosh Calculation Initial Santosh Date Initial Exam Date Initial Exam Provider Initial Ultrasound Date Last Menstrual Period Date Ultra Sound Weeks Gestation 0 Eighteen To Twenty Week Santosh Update Ultra Sound Date Fundal Height At Umbil Quickening Date Ultra Sound Latest Weeks Gestation Final Santosh Confirmed By Final Santosh Confirmed Date Final Santosh Date Ultra Sound Latest Days Gestation 0 0 Menstrual History Last Menstrual Date Menses Monthly On Bcp Conception Prior Menses Frequency Hcg Plus Date Menarche Onset Age Delivery Information Delivery Date Delivery Type Labor Anesthesia Weeks Gestation Incision Type Labor Labor Length Hrs Delivered By Post Complications Tubal Sterilization Discharge Date Comments 9 None 49 false Discharge Information Feeding Method Contraceptive Method Maternal HG B and HCT Levels Ob Episode Information Episode Created Date Number of Fetuses Patient Bloodtype Patient rh Status Prepregnancy Weight lbs Domestic Partner Domestic Partner Phone Father Name Cosmetician Apprentice Status 01/03/20 23 1 134 CLOSED Fetus Data First Name Last Name Admitted to NICU Weight (g) Sex Living Outcome Pediatric Complications Fetus ID Race Codes Race Delivery Type [id number] Santosh Calculation Initial Santosh Date Initial Exam Date Initial Exam Provider Initial Ultrasound Date Last Menstrual Period Date Ultra Sound Weeks Gestation 07/06/2023 12/08/2022 12/08/2022 09/29/2022 0 Eighteen To Twenty Week Santosh Update Ultra Sound Date Fundal Height At Umbil Quickening Date Ultra Sound Latest Weeks Gestation Final Santosh Confirmed By Final Santosh Confirmed Date Final Santosh Date Ultra Sound Latest Days Gestation 0 07/06/19 24 0 Menstrual History Last Menstrual Date Menses Monthly On Bcp Conception Prior Menses Frequency Hcg Plus Date Menarche Onset Age 0809/29/2022 Delivery Information Delivery Date Delivery Type Labor Anesthesia Weeks Gestation Incision Type Labor Labor Length Hrs Delivered By Post Complications Tubal Sterilization Discharge Date Comments Discharge Information Feeding Method Contraceptive Method Maternal HG B and HCT Levels
--- OUTSIDE RECORDS SUMMARY | 2024-09-11 20:46 | XMS_ITS | Encounter Summary ---
Author Organization [facility] Address [address] [place] [address] Care Team Providers Care Life Specialist Name Role Phone Roseanne Barone MD Primary Care Provider +1- [phone] Encounter Details Date Type Department Care Team (Late st Contact Info) Description 09/20/2021 Therapy Plan [facility] Infusion Services [place], [place] [id number] Anum Marie, [facility] [address] [place] [address] Social History Tobacco Use Types Packs/Day Years Used Date Smoking Tobacco: Former Cigarettes Smokeless Tobacco: Never Alcohol Use Standard Drinks/Week Comments Not Currently 0 (1 standard drink = 0.6 oz pur e alcohol) Humiliation, Afraid, Rape, and Kick questionnair e Answer Date Recorded Within the last year, have y ou been afraid of your partner or ex-partner? No 05/24/2020 Within the last year, have y ou been humiliated or emotionally abused in other ways by your partner or ex-partner? No Within the last year, have y ou been kicked, hit, slapped, or otherwise physically hurt by your partner or ex-partner? No 05/24/2020 Within the last year, have y ou been raped or forced to have any kind of sexual activity by your partner or ex-partner? No 05/24/2020 Social Connection and Isolation Panel [NHANES] A nswer Date Recorded In a typical week, how many times do you talk on the phone with family, friends, or neighbors? Patient declined 05/24/2020 How often do you get togethe r with friends or relatives? Patient declined 05/24/2020 How often do you attend cheondoism or jew serv ices? Patient declined 05/24/2020 Do you belong to any clubs o r organizations such as cheondoism groups, unions, fraternal or athletic groups, or school groups? Patient declined 05/24/2020 How often do you attend meet ings of the clubs or organizations you belong to? Patient declined 05/24/2020 Are you , , di vorced, , never , or living with a partner? Patient declined 05/24/2020 Overall Financial Resource Strain (CARDIA) Answe r Date Recorded How hard is it for you to pa y for the very basics like food, housing, medical care, and heating? Not hard at all 05/24/2020 Exercise Vital Sign Answer Date Recorde d On average, how many days pe r week do you engage in moderate to strenuous exercise (like a brisk walk)? Patient declined On average, how many minutes do you engage in exercise at this level? Patient declined 05/24/2020 Hunger Vital Sign Answer Date Recorded Within the past 12 months, y ou worried that your food would run out before you got the money to buy more. Never true 05/25/19 21 Within the past 12 months, t he food you bought just didn't last and you didn't have money to get more. Never true 05/24/2020 PRAPARE - Transportation Answer Date Re corded In the past 12 months, has l ack of transportation kept you from medical appointments or from getting medications? No 05/2020 In the past 12 months, has l ack of transportation kept you from meetings, work, or from getting things needed for daily living? No 05/24/2020 Depression Answer Date Recor ded Last EPDS Total Score 0 05/26/2020 Last EPDS Self Harm Result Never 05/26 Comments Yes Sex and Gender Information Value Date Recorded Sex Assigned at Not on file Legal Sex Female 4:07 PM CDT Gender Identity Not on file Sexual Orientation Not on file COVID-19 Exposure Response Date Recorded In the last 10 days, have yo u been in contact with someone who was confirmed or suspected to have Coronavirus/COVID-19? No / Unsure 09/23/2021 3:01 PM CDT documented as of this encounter Functional Status * RETIRED Are you deaf or do you have serious difficulty hearing Answer Date of Assessment Author Status No 05/24/2020 3:55 AM CDT Activ e * RETIRED Are you blind or do you have serious difficulty seeing, even when wearing glasses? Answer Date of Assessment Author Status No 05/24/2020 3:55 AM CDT Activ e * Do you have serious difficulty walking or climbing stairs? Answer Date of Assessment Author Status No 05/24/2020 3:55 AM CDT Tricia Matos R N Active * Do you have difficulty dressing or bathing? Answer Date of Assessment Author Status No 05/24/2020 3:55 AM CDT Tricia Matos R N Active * Because of a physical, mental, or emotional condition, do you have difficulty doing errands alone such as visiting a doctor's office or shopping? Answer Date of Assessment Author Status No 05/24/2020 3:55 AM CDT Tricia Matos R N Active documented as of this encounter Mental Status * Because of a physical, mental, or emotional condition, do you have serious difficulty concentrating, remembering, or making decisions? Answer Entry Date Author Status No 05/24/2020 3:55 AM CDT Tricia Matos R N Active documented in this encounter Plan of Treatment Not on file documented as of this encounter Visit Diagnoses Diagnosis Anemia complicating in third trimester (HHS/HCC)- Primary Anemia, antepartum documented in this encounter Care Teams Life Specialist Relationship Specialty Start Date End Date Roseanne Barone MD [address] [place] [address] [place] [address] PCP - General FAMILY PRACTICE 04/12/20 documented as of this encounter
--- OUTSIDE RECORDS SUMMARY | 2024-09-11 20:46 | XMS_ITS | Clinical Summary ---
Author Organization [facility] Address [address] [place] [address] Care Team Providers Care Peripheral Vascular Tech Name Role Phone Roseanne Barone MD Primary Care Provider +1- [phone] Allergies No known active allergies Medications ferrous sulfate EC 324 (65 Fe) MG tablet Take 1 tablet (324 mg total) by mouth daily with breakfast. 30 tablet 10/12/2021 Active Active Problems Problem Noted Date Diagnosed Date (spontaneous vaginal delivery) ([facility]) Anemia complicating in third trimester ([facility]) 09/20/2021 Resolved Problems Problem Noted Date Diagnosed Date Resolved Date ([facility]) 10/07/2021 10/11/19 22 Encounter for induction of labor ([facility]) 05/24/2020 10/10/2021 Social History Tobacco Use Types Packs/Day Years Used Date Smoking Tobacco: Former Cigarettes Smokeless Tobacco: Never Tobacco Cessation:Ready to Q uit: No; Counseling Given: No Alcohol Use Standard Drinks/Week Comments Not Currently 0 (1 standard drink = 0.6 oz pur e alcohol) Humiliation, Afraid, Rape, and Kick questionnair e Answer Date Recorded Within the last year, have y ou been afraid of your partner or ex-partner? No 10/07/2021 Within the last year, have y ou been humiliated or emotionally abused in other ways by your partner or ex-partner? No Within the last year, have y ou been kicked, hit, slapped, or otherwise physically hurt by your partner or ex-partner? No 10/07/2021 Within the last year, have y ou been raped or forced to have any kind of sexual activity by your partner or ex-partner? No 10/07/2021 Social Connection and Isolation Panel [NHANES] A nswer Date Recorded In a typical week, how many times do you talk on the phone with family, friends, or neighbors? Patient declined 05/24/2020 How often do you get togethe r with friends or relatives? Patient declined 05/24/2020 How often do you attend restorationism or bahai serv ices? Patient declined 05/24/2020 Do you belong to any clubs o r organizations such as restorationism groups, unions, fraternal or athletic groups, or [...] EPDS Self Harm Result Never 05/26 Comments No Sex and Gender Information Value Date Recorded Sex Assigned at Not on file Legal Sex Female 4:07 PM CDT Gender Identity Not on file Sexual Orientation Not on file Last Filed Vital Signs Vital Sign Reading Time Taken Comments Blood Pressure 111/79 10/11/2021 10:40 AM CDT Pulse 75 10/11/2021 10:40 AM CDT Temperature 36.6 C (97.8 F) 10/10/2021 7:30 PM CDT Respiratory Rate 16 10/11/2021 10:40 AM CDT Oxygen Saturation 99% 10/11/2021 10:40 AM CDT Inhaled Oxygen Concentration - - Weight 77.1 kg (170 lb) 10/10/2021 8:57 AM CDT Height 160 cm (5' 3) 10/10/2021 8:57 AM CDT Body Mass Index 30.11 10/10/2021 8:57 AM CDT Plan of Treatment Health Maintenance Due Date Last Done Comments Cervical Cancer Screening Pap Smear (Age 21 to 29) Every 3 Years 2000 Cervical Cancer Screening 2000 Annual Physical 08/03/2003 DTaP, Tdap and Td Vaccines (5 - Tdap) 08/03/2011 01/20/2005, 08/08/2001, 05/08/2001, Additional history exists Hepatitis C 2018 Hepatitis B Vaccines (1 of 3 - 19+ 3-dose series) 08/03/2019 COVID-19 Vaccine (2023- season) 2023 HPV Vaccines Completed 09/28/2015, 09/20/2014 Meningococcal Vaccine Completed 11/30/2017 , 09/20/2014, 08/25/2010 Meningococcal B Vaccine Aged Out No l onger eligible based on patient's age to complete this topic Pneumococcal Vaccine: Pediatrics (0 to 5 Years) and At-Risk Patients (6 to 49 Years) Aged Out No longer eligible based on patient's age to complete this topic RSV Immunizations Under 20 Months Aged Out No longer eligible based on patient's age to complete this topic Advance Directives * Full Code (Latest Code Status on File) Date Activated Date Inactivated Comments 10/10/2021 8:09 AM 10/11/2021 4:12 PM * Full Code Date Activated Date Inactivated Comments 10/07/2021 9:21 AM 10/07/2021 5:09 PM * Full Code Date Activated Date Inactivated Comments 05/24/2020 3:02 AM 05/25/2020 3:26 AM Care Teams Peripheral Vascular Tech Relationship Specialty Start Date End Date Roseanne Barone MD [address] [place] [address] [place] [address] PCP - General FAMILY PRACTICE 04/12/20
--- NOTE | 2024-09-11 22:04 | OBADM ---
This patient, Carolann Villa, admitted to the OB room OB Post 115 for observation. Patient/family oriented to hospital policies and general routines including ID bracelet, bed and alarms, visiting hours, pain management, procedures, bathroom and other care routines, personal items, smoking policy, room service/diet, and visiting hours. Patient/Family are encouraged to report perceived risks to care and to ask questions if they do not understand what they are told or what they should do.
--- NOTE | 2024-09-12 12:31 | PM.OBTRLD ---
OB - Triage/Final Diagnosis Visit Information Reason for evaluation: threatened labor Comments/Additional reasons for admission: I have assessed the risk for this patient, Carolann Villa, and determined that she would benefit from observation care. Evaluation Vital signs: Vital Signs - 24 hr 09/11/24 20:53 09/11/24 20:58 09/11/24 21:00 Pulse Rate 92 Blood Pressure 115/64 Pulse Oximetry 98 97 Oxygen Delivery 09/11/24 21:03 09/11/24 21:08 09/11/24 21:13 Pulse Rate Blood Pressure Pulse Oximetry 98 97 99 Oxygen Delivery 09/11/24 21:16 09/11/24 21:18 09/11/24 21:23 Pulse Rate 91 Blood Pressure 113/61 Pulse Oximetry 97 99 Oxygen Delivery 09/11/24 21:28 09/11/24 21:30 09/11/24 21:35 Pulse Rate 92 Blood Pressure 98/55 L Pulse Oximetry 100 94 Oxygen Delivery 09/11/24 21:44 09/11/24 21:45 09/11/24 21:46 Pulse Rate 77 86 Blood Pressure 114/72 116/70 Pulse Oximetry 99 Oxygen Delivery 09/11/24 21:49 09/11/24 21:54 09/11/24 21:59 Pulse Rate Blood Pressure Pulse Oximetry 98 98 99 Oxygen Delivery 09/11/24 22:00 09/11/24 22:04 Pulse Rate 89 Blood Pressure 110/73 Pulse Oximetry Oxygen Delivery Room Air
== END 2024-09-11 22:51 | disposition home or self-care (01) ==
PROVIDERS: Admitting Provider Obstetrics & Gynecology; Visit Provider Obstetrics & Gynecology
DX: O47.03 False labor before 37 completed weeks of gestation, third trimester (principal); Z3A.31 31 weeks gestation of pregnancy
CPT/HCPCS: G0378; G0379

== ENCOUNTER 2024-09-11 22:28 | Emergency (ER) | payer OTHER, SELFPAY ==
--- OUTSIDE RECORDS SUMMARY | 2024-09-11 22:31 | XMS_ITS | Encounter Summary ---
Author Organization [facility] Address [address] [place] [address] Care Team Providers Care Pt Escort Name Role Phone Roseanne Barone MD Primary Care Provider +1- [phone] Encounter Details Date Type Department Care Team (Late st Contact Info) Description 09/20/2021 Therapy Plan [facility] Infusion Services [place], [place] [id number] Anum Marie, [facility] [address] [place] [address] Social History Tobacco Use Types Packs/Day Years [...] declined 05/24/2020 How often do you attend anabaptism or congregation serv ices? Patient declined 05/24/2020 Do you belong to any clubs o r organizations such as anabaptism groups, unions, fraternal or athletic groups, or [...] antepartum documented in this encounter Care Teams Pt Escort Relationship Specialty Start Date End Date Roseanne Barone MD [address] [place] [address] [place] [address] PCP - General FAMILY PRACTICE 04/12/20 documented as of this encounter
--- OUTSIDE RECORDS SUMMARY | 2024-09-11 22:31 | XMS_ITS | Clinical Summary ---
Author Organization [facility] Address [address] [place] [address] Care Team Providers Care Toolsmith Name Role Phone Roseanne Barone MD Primary Care Provider +1- [phone] Allergies No known active allergies Medications ferrous sulfate EC 324 (65 Fe) MG tablet Take 1 tablet (324 mg total) by mouth daily with breakfast. 30 tablet 10/12/2021 Active Active Problems Problem Noted Date Diagnosed Date (spontaneous vaginal delivery) ([facility] Anemia complicating in third trimester ([facility]) 09/20/2021 Resolved Problems Problem Noted Date Diagnosed Date Resolved Date ([facility]) 10/07/2021 10/11/19 22 Encounter for induction of labor ([facility]) 05/24/2020 10/10/2021 Social History Tobacco Use [...] declined 05/24/2020 How often do you attend christianity or temple serv ices? Patient declined 05/24/2020 Do you belong to any clubs o r organizations such as christianity groups, unions, fraternal or athletic groups, or [...] 3:02 AM 05/25/2020 3:26 AM Care Teams Toolsmith Relationship Specialty Start Date End Date Roseanne Barone MD [address] [place] [address] [place] [address] PCP - General FAMILY PRACTICE 04/12/20
--- NOTE | 2024-09-11 22:37 | PC.NURSE ---
Pt is ambulatory to triage and states she is going [facility] and doesnt want to wait. Pt exits ED with steady gait. Pt left without being seen.
--- OUTSIDE RECORDS SUMMARY | 2024-09-11 23:13 | XMS_ITS | Encounter Summary ---
Author Organization [facility] Address [address] [place] [address] Care Team Providers Care Black Oxide Coating Equipment Tender Name Role Phone Roseanne Barone MD Primary Care Provider +1- [phone] Encounter Details Date Type Department Care Team (Late st Contact Info) Description 09/20/2021 Therapy Plan [facility] Infusion Services [place], [place] [id number] Anum Marie, [facility] [address] [place] [address] Social History Tobacco Use Types Packs/Day Years [...] declined 05/24/2020 How often do you attend episcopalian or cheondoism serv ices? Patient declined 05/24/2020 Do you belong to any clubs o r organizations such as episcopalian groups, unions, fraternal or athletic groups, or [...] antepartum documented in this encounter Care Teams Black Oxide Coating Equipment Tender Relationship Specialty Start Date End Date Roseanne Barone MD [address] [place] [address] [place] [address] PCP - General FAMILY PRACTICE 04/12/20 documented as of this encounter
--- OUTSIDE RECORDS SUMMARY | 2024-09-11 23:13 | XMS_ITS | Clinical Summary ---
Author Organization [facility] Address [address] [place] [address] Care Team Providers Care Dancing Master Name Role Phone Roseanne Barone MD Primary Care Provider +1- [phone] Allergies No known active allergies Medications ferrous sulfate EC 324 (65 Fe) MG tablet Take 1 tablet (324 mg total) by mouth daily with breakfast. 30 tablet 10/12/2021 Active Active Problems Problem Noted Date Diagnosed Date (spontaneous vaginal delivery) ([facility]) Anemia complicating in third trimester ([facility]) 09/20/2021 Resolved Problems Problem Noted Date Diagnosed Date Resolved Date ([facility]) 10/07/2021 10/11/19 22 Encounter for induction of labor ([facility]) 05/24/2020 10/10/2021 Social History Tobacco Use Types [...] declined 05/24/2020 How often do you attend confucianism or mormon serv ices? Patient declined 05/24/2020 Do you belong to any clubs o r organizations such as confucianism groups, unions, fraternal or athletic groups, or [...] 3:02 AM 05/25/2020 3:26 AM Care Teams Dancing Master Relationship Specialty Start Date End Date Roseanne Barone MD [address] [place] [address] [place] [address] PCP - General FAMILY PRACTICE 04/12/20
== END 2024-09-11 22:37 | disposition left against medical advice (07) ==
DX: Z53.21 Procedure and treatment not carried out due to patient leaving prior to being seen by health care provider (principal)
CPT/HCPCS: 99199

== ENCOUNTER 2024-10-08 13:29 | Observation (INO) | payer OTHER, SELFPAY ==
[2024-10-08] VITALS (14 sets, daily range): BP systolic 115–135; BP diastolic 67–82; PULSE 103–119; TEMP 36.2; O2SAT 96–98; BMI 30.2
--- OUTSIDE RECORDS SUMMARY | 2024-10-08 13:49 | XMS_ITS | Clinical Summary ---
Author Organization [facility] Address [address] [place] [address] Care Team Providers Care Mortgage Field Inspector Name Role Phone Roseanne Barone MD Primary Care Provider +1- [phone] Allergies No known active allergies Medications ferrous sulfate EC 324 (65 Fe) MG tablet Take 1 tablet (324 mg total) by mouth daily with breakfast. 30 tablet 10/12/2021 Active Active Problems Problem Noted Date Diagnosed Date (spontaneous vaginal delivery) ([facility]) Anemia complicating in third trimester ([facility]) 09/20/2021 Resolved Problems Problem Noted Date Diagnosed Date Resolved Date ([facility]) 10/07/2021 10/11/19 22 Encounter for induction of labor ([facility]) 05/24/2020 10/10/2021 Social History Tobacco Use [...] declined 05/24/2020 How often do you attend alevism or christianity serv ices? Patient declined 05/24/2020 Do you belong to any clubs o r organizations such as alevism groups, unions, fraternal or athletic groups, or [...] 3:02 AM 05/25/2020 3:26 AM Care Teams Mortgage Field Inspector Relationship Specialty Start Date End Date Roseanne Barone MD [address] [place] [address] [place] [address] PCP - General FAMILY PRACTICE 04/12/20
--- OUTSIDE RECORDS SUMMARY | 2024-10-08 13:49 | XMS_ITS | Encounter Summary ---
Author Organization [facility] Address [address] [place] [address] Care Team Providers Care Sleeve Turner Name Role Phone Roseanne Barone MD Primary Care Provider +1- [phone] Encounter Details Date Type Department Care Team (Late st Contact Info) Description 09/20/2021 Therapy Plan [facility] Infusion Services [place], [place] [id number] Anum Marie, [facility] [address] [place] [address] Social History Tobacco Use Types Packs/Day Years [...] declined 05/24/2020 How often do you attend adventist or hinduism serv ices? Patient declined 05/24/2020 Do you belong to any clubs o r organizations such as adventist groups, unions, fraternal or athletic groups, or [...] antepartum documented in this encounter Care Teams Sleeve Turner Relationship Specialty Start Date End Date Roseanne Barone MD [address] [place] [address] [place] [address] PCP - General FAMILY PRACTICE 04/12/20 documented as of this encounter
[2024-10-08 14:05] LABS: Add Urine Microscopic? YES; Appearance Urine Clear (Clear); Glucose Urine UA Negative (Negative); Leukocyte Esterase Ur 2+ LEU/UL (Negative); Nitrate Urine Negative (Negative); Non Pathogenic Casts 0-2; Specific Grav Ur 1.016 (1.001-1.035)
--- NOTE | 2024-10-23 16:42 | PM.OBTRLD ---
OB - Triage/Final Diagnosis Visit Information Comments/Additional reasons for admission: I have assessed the risk for this patient, Carolann Villa, and determined that she would benefit from observation care. Evaluation Laboratory results: Laboratory Tests 10/08/24 13:54 Urine Color Yellow Urine Appearance Clear Urine pH 7.0 Ur Specific [place] 1.016 Urine Protein Negative Urine Glucose (UA) Negative Urine Ketones Negative Ur Blood (Man) Negative Urine Nitrate Negative Urine Bilirubin Negative Urine Urobilinogen 1.0 Leukocyte Esterase Rfl 2+ H Urine RBC 0-2 Urine WBC 6-10 H Ur Squamous Epith Cells Few Urine Bacteria Rare Urine Casts 0-2 Final Diagnosis (1) Cramping affecting , antepartum: Code(s): O26.899 - Other specified related conditions, unspecified trimester; R10.9 - Unspecified abdominal pain Status: Acute
== END 2024-10-08 14:40 | disposition home or self-care (01) ==
PROVIDERS: Admitting Provider Obstetrics & Gynecology; Visit Provider Obstetrics & Gynecology
DX: O26.893 Other specified pregnancy related conditions, third trimester (principal); R10.9 Unspecified abdominal pain; Z3A.35 35 weeks gestation of pregnancy
CPT/HCPCS: 81001; 87086; G0378; G0379

== ENCOUNTER 2024-10-13 16:48 | Outpatient (CLI) | payer OTHER, SELFPAY ==
--- OUTSIDE RECORDS SUMMARY | 2024-10-13 16:54 | XMS_ITS | Clinical Summary ---
Author Organization [facility] Address [address] [place] [address] Care Team Providers Care Lost And Found Clerk Name Role Phone Roseanne Barone MD Primary Care Provider +1- [phone] Allergies No known active allergies Medications ferrous sulfate EC 324 (65 Fe) MG tablet Take 1 tablet (324 mg total) by mouth daily with breakfast. 30 tablet 10/12/2021 Active Active Problems Problem Noted Date Diagnosed Date (spontaneous vaginal delivery) ([facility]) Anemia complicating in third trimester ([facility]) 09/20/2021 Resolved Problems Problem Noted Date Diagnosed Date Resolved Date ([facility]) 10/07/2021 10/11/19 22 Encounter for induction of [...] declined 05/24/2020 How often do you attend baptism or sabianist serv ices? Patient declined 05/24/2020 Do you belong to any clubs o r organizations such as baptism groups, unions, fraternal or athletic groups, or [...] 3:02 AM 05/25/2020 3:26 AM Care Teams Lost And Found Clerk Relationship Specialty Start Date End Date Roseanne Barone MD [address] [place] [address] [place] [address] PCP - General FAMILY PRACTICE 04/12/20
--- OUTSIDE RECORDS SUMMARY | 2024-10-13 16:54 | XMS_ITS | Encounter Summary ---
Author Organization [facility] Address [address] [place] [id number] Care Team Providers Care Cook Syrup Maker Name Role Phone Roseanne Barone MD Primary Care Provider [phone] Encounter Details Date Type Department Care Team (Late st Contact Info) Description 09/20/2021 Therapy Plan [facility] Infusion Services [address] [place], [place] [id number] Anum Marie, [facility] [address] [place] [address] Social History Tobacco Use Types Packs/Day Years [...] declined 05/24/2020 How often do you attend taoist or faith serv ices? Patient declined 05/24/2020 Do you belong to any clubs o r organizations such as taoist groups, unions, fraternal or athletic groups, or [...] antepartum documented in this encounter Care Teams Cook Syrup Maker Relationship Specialty Start Date End Date Roseanne Barone MD [address] [place] [address] [place] [address] PCP - General FAMILY PRACTICE 04/12/20 documented as of this encounter
[2024-10-13 17:06] VITALS: BP 115/72; PULSE 101
[2024-10-13 17:15] VITALS: BP 118/77; PULSE 103
[2024-10-13 17:30] VITALS: BP 112/74; PULSE 88
[2024-10-13 17:45] VITALS: BP 118/77; PULSE 88
[2024-10-13 18:11] LABS: OBXCEM ROM Plus Negative (Negative)
== END 2024-10-13 18:03 | disposition home or self-care (01) ==
LOC: ANHOBOP 16:52 → ANHLDR 16:53
PROVIDERS: Obstetrics & Gynecology; Visit Provider Obstetrics & Gynecology
DX: O42.90 Premature rupture of membranes, unspecified as to length of time between rupture and onset of labor, unspecified weeks of gestation (principal); Z3A.00 Weeks of gestation of pregnancy not specified
CPT/HCPCS: 59025; 84112; 99199

== ENCOUNTER 2024-10-16 17:18 | Observation (INO) | payer OTHER, SELFPAY ==
--- NOTE | 2024-10-16 19:11 | OBADM ---
This patient, Carolann Villa, admitted to the OB room Labor/Delivery/Recovery 105 for observation. Patient/family oriented to hospital policies and general routines including ID bracelet, bed and alarms, visiting hours, pain management, procedures, bathroom and other care routines, personal items, smoking policy, room service/diet, and visiting hours. Patient/Family are encouraged to report perceived risks to care and to ask questions if they do not understand what they are told or what they should do.
[2024-10-16 19:15] LABS: OBXCEM ROM Plus Negative (Negative)
[2024-10-16 19:15] LABS: Hematocrit 26.1 % (37.0-47.0); Hemoglobin 7.6 g/dL (12.0-15.0); Mean Corpuscular HGB Conc 29.1 g/dl (32-36); Mean Corpuscular Hemoglobin 20.2 pg (26-34); Mean Corpuscular Volume 69.4 fl (80-100); Platelet Count Result 179 k/mm3 (150-375); Red Blood Count 3.76 M/mm3 (4.2-5.4); White Blood Count 8.4 K/mm3 (4.5-10.0)
[2024-10-16 19:43] LABS: Band Neutrophils Percent 3 % (0-6); Basophils Absolute Manual 0.08 K/mm3 (0.0-0.1); Basophils Percent Manual 1 % (0-1); Lymphocytes Absolute Manual 1.26 K/mm3 (1.1-4.5); Lymphocytes Percent Manual 15.0 % (18-44); Monocytes Absolute Manual 0.42 K/mm3 (0.1-0.90); Monocytes Percent Manual 5 % (3-9); Neutrophils Absolute Manual 6.63 K/mm3 (1.3-6.7); Neutrophils Percent Manual 76 % (46-73); Total Cells Counted 100
[2024-10-16 19:45] LABS: Schistocytes None Seen
[2024-10-16 19:46] LABS: Hypochromasia 1+; Microcytosis 1+ (NORMAL)
[2024-10-16 19:47] LABS: Anisocytosis 2+; Polychromasia Occasional
[2024-10-16 19:56] LABS: Syphilis IgG/IgM Antibody Non-Reactive (Nonreactive)
[2024-10-16 20:01] LABS: Hepatitis B Surface Antigen Negative (Negative)
[2024-10-16 20:09] LABS: HIV 1/2 Ab P24 Ag Result Negative (Negative)
--- NOTE | 2024-10-29 21:27 | P.PNOB_ITS ---
OB - Triage/Final Diagnosis Visit Information Comments/Additional reasons for admission: I have assessed the risk for this patient, Carolann Villa, and determined that she would benefit from observation care. Evaluation Laboratory results: Laboratory Tests 10/16/24 10/16/24 17:45 19:07 WBC 8.4 RBC 3.76 L Hgb 7.6 L Hct 26.1 L MCV 69.4 L MCH 20.2 L MCHC 29.1 L RDW 17.2 H Plt Count 179 MPV 11.1 H Immature Gran % (Auto) Not Reportable Neut % (Auto) Not Reportable Lymph % (Auto) Not Reportable [place] % (Auto) Not Reportable Eos % (Auto) Not Reportable Baso % (Auto) Not Reportable Lymph # (Auto) Not Reportable [place] # (Auto) Not Reportable Eos # (Auto) Not Reportable Baso # (Auto) Not Reportable Abs Immat Gran (auto) Not Reportable Absolute Neuts (auto) Not Reportable Absolute Nucleated RBC Not Reportable Total Counted 100 Neutrophils % (Manual) 76 H Band Neutrophils % 3 Lymphocytes % (Manual) 15.0 L Monocytes % (Manual) 5 Basophils % (Manual) 1 Nucleated RBC % Not Reportable Abs Neuts (Manual) 6.63 Abs Lymphs (Manual) 1.26 Abs Monocytes (Manual) 0.42 Abs Basophils (Manual) 0.08 Platelet Estimate Adequate Polychromasia Occasional Hypochromasia 1+ Anisocytosis 2+ Microcytosis 1+ Schistocytes None seen Membranes Rupture Rom plus negative Syphilis IgG/IgM Ab Non-reactive Hep Bs Antigen Negative HIV 1&2 Ab/P24 Ag 4thGn Negative Rubella IgG Antibody 5.3 L Blood Type A Positive Antibody Screen Negative Final Diagnosis (1) Uterine contractions during : Code(s): O47.9 - False labor, unspecified Status: Acute
== END 2024-10-16 19:15 | disposition home or self-care (01) ==
PROVIDERS: Admitting Provider Obstetrics & Gynecology; Visit Provider Obstetrics & Gynecology
DX: O47.03 False labor before 37 completed weeks of gestation, third trimester (principal); Z3A.36 36 weeks gestation of pregnancy
CPT/HCPCS: 36415; 84112; 85025; 86593; 86703; 86762; 86850; 86900; 86901; 87340; G0378; G0379; G0432

== ENCOUNTER 2024-11-02 16:10 | Observation (INO) | payer MEDICAID, SELFPAY ==
[2024-11-02 16:28] VITALS: BP 117/80; PULSE 115; TEMP 37
[2024-11-02 16:30] VITALS: BP 120/81; PULSE 116
[2024-11-02 17:19] LABS: Add Urine Microscopic? YES; Appearance Urine Clear (Clear); Glucose Urine UA Negative (Negative); Leukocyte Esterase Ur 2+ LEU/UL (Negative); Nitrate Urine Negative (Negative); Non Pathogenic Casts 0-2; Specific Grav Ur 1.019 (1.001-1.035)
[2024-11-02 17:29] LABS: OBXCEM ROM Plus Negative (Negative)
[2024-11-02 17:30] VITALS: BP 122/82; PULSE 93
--- NOTE | 2024-11-04 08:42 | PM.OBTRLD ---
OB - Triage/Final Diagnosis Visit Information Date of evaluation: 11/02/24 Reason for evaluation: threatened labor Comments/Additional reasons for admission: I have assessed the risk for this patient, Carolann Villa, and determined that she would benefit from observation care. Evaluation Laboratory results: Laboratory Tests 11/02/24 11/02/24 16:59 17:26 Urine Color Yellow Urine Appearance Clear Urine pH 7.5 Ur Specific [place] 1.019 Urine Protein Trace Urine Glucose (UA) Negative Urine Ketones Negative Ur Blood (Man) Negative Urine Nitrate Negative Urine Bilirubin Negative Urine Urobilinogen 1.0 Leukocyte Esterase Rfl 2+ H Urine RBC 0-2 Urine WBC 6-10 H Ur Squamous Epith Cells Few Urine Bacteria Rare Urine Casts 0-2 Membranes Rupture Rom plus negative
== END 2024-11-02 18:00 | disposition home or self-care (01) ==
PROVIDERS: Admitting Provider Student in an Organized Health Care Education/Training Program; Visit Provider Student in an Organized Health Care Education/Training Program
DX: O47.9 False labor, unspecified (principal); Z3A.00 Weeks of gestation of pregnancy not specified
CPT/HCPCS: 81001; 84112; 87081; 87086; G0378; G0379

== ENCOUNTER 2024-11-06 06:04 | Inpatient (IN) | payer MEDICAID, SELFPAY ==
[2024-11-06] VITALS (73 sets, daily range): BP systolic 105–136; BP diastolic 26–95; PULSE 70–149; RESP 16–20; TEMP 36.6–37.2; O2SAT 94–100; BMI 32.7
--- OUTSIDE RECORDS SUMMARY | 2024-11-06 06:11 | XMS_ITS | Encounter Summary ---
Author Organization [facility] Address [address] [place] [address] Care Team Providers Care Policy Writer Typist Name Role Phone Roseanne Barone MD Primary Care Provider [phone] Encounter Details Date Type Department Care Team (Late st Contact Info) Description 09/20/[address] [facility] Infusion Services [address] [place], [place] [id number] Anum Marie, [facility] [address] [place], [place] [address] Social History Tobacco Use Types Packs/Day Years [...] declined 05/24/2020 How often do you attend catholic or anabaptism serv ices? Patient declined 05/24/2020 Do you belong to any clubs o r organizations such as catholic groups, unions, fraternal or athletic groups, or [...] antepartum documented in this encounter Care Teams Policy Writer Typist Relationship Specialty Start Date End Date Roseanne Barone MD [address] [place] [address] [place] [address] PCP - General FAMILY PRACTICE 04/12/20 documented as of this encounter
--- NOTE | 2024-11-06 06:58 | LDADM ---
This patient, Carolann Villa, was admitted to Labor/Delivery/Recovery 105 on 11/06/24 at 06:04. Plans for labor, pain management and were discussed with patient. Patient/family oriented to hospital policies and general routines including ID bracelet, bed and alarms, visiting hours, pain management, procedures, bathroom and other care routines, personal items, smoking policy, room service/diet and guest tray routines, security routines, and visiting hours. Patient/Family are encouraged to report perceived risks to care and to ask questions if they do not understand what they are told or what they should do. See OBIX for further documentation.
[2024-11-06 07:09] LABS: Hematocrit 24.9 % (37.0-47.0); Hemoglobin 7.1 g/dL (12.0-15.0); Immature Granulocyte Percent A 1.0 % (0-0.5); Immature Platelet Fraction Pct 8.3 % (0.9-11.2); Lymphocytes Absolute Auto 1.41 K/mm3 (0.9-3.2); Mean Corpuscular HGB Conc 28.5 g/dl (32-36); Mean Corpuscular Hemoglobin 19.5 pg (26-34); Mean Corpuscular Volume 68.4 fl (80-100); Nucleated Red Blood Cells Absolute Auto 0.000 K/mm3 (0.0-0.012); Nucleated Red Blood Cells Perc 0.0 % (0.0-0.2); Platelet Count Result 187 k/mm3 (150-375); Red Blood Count 3.64 M/mm3 (4.2-5.4); White Blood Count 7.8 K/mm3 (4.5-10.0)
[2024-11-06] MEDS: LACTATED RINGERS 1,000 ML 125 ML IV CONT ×2 (07:21→08:18)
[2024-11-06 07:26] LABS: Alanine Aminotransferase 11 U/L (6-35); Albumin Level 3.4 g/dL (3.5-5.1); Alkaline Phosphatase 208 U/L (38-126); Anion Gap 10 mmol/L (4-12); Aspartate Amino Transferase 21 U/L (14-36); Bilirubin,Total 0.4 mg/dL (0.2-1.3); Blood Urea Nitrogen 6 mg/dL (7-17); Calcium 8.7 mg/dL (8.4-10.2); Carbon Dioxide 19 mmol/L (22-30); Chloride 103 mmol/L (98-107); Estimated CRCL calculation 191 ml/min; Estimated Glomerular Filt Rate > 60; Glucose 84 mg/dL (65-110); Potassium 3.8 mmol/L (3.4-5.0); Sodium 132 mmol/L (137-145); Total Protein 6.5 g/dL (6.3-8.2)
[2024-11-06 07:43] LABS: Hypochromasia 1+; Schistocytes None Seen
[2024-11-06 07:44] LABS: Anisocytosis 2+; Microcytosis 1+ (NORMAL)
[2024-11-06 07:53] LABS: Cannabinoid Screen Urine Negative (Negative)
[2024-11-06] MEDS: OXYTOCIN 30 UNITS/NS 500 ML 30 UNITS/500 ML BAG IV CONT (08:18)
[2024-11-06 08:22] LABS: Syphilis IgG/IgM Antibody Non-Reactive (Nonreactive)
--- NOTE | 2024-11-06 08:24 | WPDANESEPPF ---
Anes - Initial Pre Proc Eval Procedure: labor epidural Date/Time: 11/06/24 08:24 Surgeon: Blade Espinoza MD Pre Op Diagnosis: labor pain Pre Op Diagnosis: IOL Patient Data Age: 24 Gender: F Height: 1.63 m Weight: 86.5 kg Last Vital Signs Temp 37.2 C 11/06/24 07:30 Pulse 88 11/06/24 08:23 BP 122/77 11/06/24 08:23 Pulse Ox 100 11/06/24 08:23 O2 Del Method Room Air 11/06/24 06:57 Allergies Allergy/AdvReac Type Severity Reaction Status Date / Time No Known Allergies Allergy Verified 11/05/24 15:35 Home Medications ?Medication ?Instructions ?Recorded ?Confirmed ?Type docosahexaenoic acid 200 mg 200 mg PO DAILY 03/18/24 11/06/24 History capsule ( DHA) Laboratory Tests 11/06/24 06:25 WBC 7.8 K/mm3 (4.5-10.0) RBC 3.64 L M/mm3 (4.2-5.4) Hgb 7.1 L g/dL (12.0-15.0) Hct 24.9 L % (37.0-47.0) MCV 68.4 L fl (80-100) MCH 19.5 L pg (26-34) MCHC 28.5 L g/dl (32-36) RDW 18.3 H % (11.5-14.5) Plt Count 187 k/mm3 (150-375) MPV 10.7 H fl (7.4-10.4) Immature Gran % (Auto) 1.0 H % (0-0.5) Neut % (Auto) 73.5 H % (45.5-73.1) Lymph % (Auto) 18.2 L % (18.3-44.2) [place] % (Auto) 6.4 % (2.6-8.5) Eos % (Auto) 0.6 % (0-4.4) Baso % (Auto) 0.3 % (0.2-1.2) Lymph # (Auto) 1.41 K/mm3 (0.9-3.2) [place] # (Auto) 0.5 K/mm3 (0.1-0.6) Eos # (Auto) 0.1 K/mm3 (0-0.3) Baso # (Auto) 0.0 K/mm3 (0.0-0.1) Abs Immat Gran (auto) 0.08 H K/mm3 (0.00-0.031) Absolute Neuts (auto) 5.7 K/mm3 (1.3-6.7) Absolute Nucleated RBC 0.000 K/mm3 (0.0-0.012) Band Neutrophils % Not Reportable Nucleated RBC % 0.0 % (0.0-0.2) Platelet Estimate Adequate (Adequate) % Immature Plt Fraction 8.3 % (0.9-11.2) Hypochromasia 1+ Anisocytosis 2+ Microcytosis 1+ (NORMAL) Schistocytes None seen Sodium 132 L mmol/L (137-145) Potassium 3.8 mmol/L (3.4-5.0) Chloride 103 mmol/L (98-107) Carbon Dioxide 19 L mmol/L (22-30) Anion Gap 10 mmol/L (4-12) BUN 6 L D mg/dL (7-17) Creatinine 0.39 L mg/dL (0.7-1.0) Estim Creat Clear Calc 191 ml/min Estimated GFR > 60 (59 - ) Glucose 84 mg/dL (65-110) Calcium 8.7 mg/dL (8.4-10.2) Total Bilirubin 0.4 mg/dL (0.2-1.3) AST 21 U/L (14-36) ALT 11 U/L (6-35) Alkaline Phosphatase 208 H U/L (38-126) Total Protein 6.5 g/dL (6.3-8.2) Albumin 3.4 L g/dL (3.5-5.1) Urine Opiates Screen Negative (Negative) Urine Methadone Screen Negative (Negative) Ur Barbiturates Screen Negative (Negative) Ur Phencyclidine Scrn Negative (Negative) Ur Amphetamine Screen Negative (Negative) U Benzodiazepines Scrn Negative (Negative) Urine Cocaine Screen Negative (Negative) U Cannabinoids Screen Negative (Negative) Syphilis IgG/IgM Ab Non-reactive (Nonreactive) Blood Type A Positive Antibody Screen Negative Patient hx anesthesia problems: none Family hx anesthesia problems: none Results Review: All pre-operative results and documents have been reviewed as part of the pre-operative evaluation. [facility], [facility] Past Medical History Medical History UTI (urinary tract infection) Miscarriage Surgical History Surgical History Status post dilation and curettage (11/28/18) suction D&C missed AB Family History Family History Father Diabetes mellitus Mother Diverticulitis Hypertension Social History Social History Years smoked: 5 Smoking status: Current every day smoker Tobacco type: e-cigarettes/vaping Second hand tobacco smoke exposure: Yes Additional smoking assessment comments: only smoking 2 cigarettes a day Alcohol intake: never Substance use: never Substance use type: does not use Do You Feel Safe in your Home?: Yes Lack of Transportation: No Lack of Food: Never True Current Housing: I Have Housing Concerned About Future Housing: No Difficulty Paying Gas/Electric Bills: No Difficulty Paying for Meds: No Currently Unemployed: No Education: Grade School Difficulty w/ Childcare or Family Care: No Living arrangements: with family Additional living arrangements comments: lives with mother Occupation/Education: unemployed Gender identity (if verbalized by the patient): Female Sexual Orientation (if Verbalized by the Patient): Straight or Heterosexual Spiritual care concerns: No Anes - Eval Final PreProcedure Day of Procedure 11/06/24 08:24 Patient weight: obese ASA classification: II Anesthetic plan: proceed Anesthesia type and monitoring: regional epidural and standard monitoring Results Review: All pre-operative results and documents have been reviewed as part of the pre-operative evaluation. Informed Consent: The patient's anesthetic plan and its attendant risks and benefits were discussed with the patient/family/POA. Questions were solicited and answers provided to the satisfaction of the patient/family/POA.
--- NOTE | 2024-11-06 09:07 | P.HP_ITS ---
H&P: HPI History of Present Illness Date/Time: 11/06/24 09:07 Chief Complaint: Here for induction of labor. Narrative: 24 y/o with LMP 02/02/24 giving EDC 11/08/24, c/u US 12w4d. She has had poor care. Rubella nonimmune. She is a silent carrier for alpha thalassemia - partner did not have carrier testing. We have offered treatment for depression/anxiety. She said Zoloft made her nauseated, so we tried Prozac. But she says she can't remember to take it. She had said she wanted tubal sterilization, but has not done the paperwork required by her insurance. NIPT neg. GBS unknown (collected, but not resulted yet). Never did get diabetes screening. She has occasional contractions. Cervix was 4-5/80/-2 in office yesterday. She is here for elective induction of labor. Plan manager social responsibility consult for poor social situation as well. She is comfortable in bed, oxytocin running. Epidural has been placed. Review of Systems Review of Systems: All systems reviewed & are unremarkable except as noted in HPI and below PMFSH Past Medical History Medical History UTI (urinary tract infection) Miscarriage Surgical History Surgical History Status post dilation and curettage (11/28/18) suction D&C missed AB Family History Family History Father Diabetes mellitus Mother Diverticulitis Hypertension Social History Social History Years smoked: 5 Smoking status: Current every day smoker Tobacco type: e-cigarettes/vaping Second hand tobacco smoke exposure: Yes Additional smoking assessment comments: only smoking 2 cigarettes a day Alcohol intake: never Substance use: never Substance use type: does not use Do You Feel Safe in your Home?: Yes Lack of Transportation: No Lack of Food: Never True Current Housing: I Have Housing Concerned About Future Housing: No Difficulty Paying Gas/Electric Bills: No Difficulty Paying for Meds: No Currently Unemployed: No Education: Grade School Difficulty w/ Childcare or Family Care: No Living arrangements: with family Additional living arrangements comments: lives with mother Occupation/Education: unemployed Gender identity (if verbalized by the patient): Female Sexual Orientation (if Verbalized by the Patient): Straight or Heterosexual Spiritual care concerns: No Meds Home Medications and Allergies Home Medications ?Medication ?Instructions ?Recorded ?Confirmed ?Type docosahexaenoic acid 200 mg 200 mg PO DAILY 03/18/24 0 11/06/24 History capsule ( DHA) Allergies Allergy/AdvReac Type Severity Reaction Status Date / Time No Known Allergies Allergy Verified 11/05/24 15:35 Vital Signs Vital Signs - 24 hr 11/06/24 06:57 11/06/24 07:30 11/06/24 07:41 Temperature 98.9 F Pulse Rate 85 Blood Pressure 134/87 Pulse Oximetry Oxygen Delivery Room Air 11/06/24 07:45 11/06/24 08:00 11/06/24 08:03 Temperature Pulse Rate 88 94 Blood Pressure 124/79 136/95 H Pulse Oximetry 98 Oxygen Delivery 11/06/24 08:08 11/06/24 08:11 11/06/24 08:13 Temperature Pulse Rate 100 Blood Pressure 131/84 Pulse Oximetry 100 100 Oxygen Delivery 11/06/24 08:15 11/06/24 08:16 11/06/24 08:18 Temperature Pulse Rate 94 91 92 Blood Pressure 129/80 124/79 121/70 Pulse Oximetry 100 Oxygen Delivery 11/06/24 08:20 11/06/24 08:23 11/06/24 08:25 Temperature Pulse Rate 94 88 85 Blood Pressure 121/80 122/77 118/78 Pulse Oximetry 100 Oxygen Delivery 11/06/24 08:28 11/06/24 08:30 11/06/24 08:33 Temperature Pulse Rate 83 91 81 Blood Pressure 120/72 120/79 126/75 Pulse Oximetry 100 99 Oxygen Delivery 11/06/24 08:35 11/06/24 08:38 11/06/24 08:40 Temperature Pulse Rate 84 87 84 Blood Pressure 119/80 117/77 126/77 Pulse Oximetry 100 Oxygen Delivery 11/06/24 08:43 11/06/24 08:45 11/06/24 08:48 Temperature Pulse Rate 88 101 H 100 Blood Pressure 120/70 117/87 123/81 Pulse Oximetry 100 99 Oxygen Delivery 11/06/24 08:50 11/06/24 08:53 11/06/24 08:58 Temperature Pulse Rate 95 Blood Pressure 122/74 Pulse Oximetry 100 100 Oxygen Delivery 11/06/24 09:00 11/06/24 09:03 Temperature Pulse Rate 83 Blood Pressure 128/80 Pulse Oximetry 99 Oxygen Delivery Exam Const: Other: Well-developed, well-nourished female in no acute distress. Neck: Other: Neck: Trachea midline, no thyromegaly or masses. Resp: Other: Lungs: Normal respiratory effort. Clear to auscultation bilaterally. Cardio: Other: Heart: Regular rate and rhythm with normal S1-S2. GI: Other: ABD: Soft, nontender, nondistended, gravid. No guarding or rebound tenderness. No hepatosplenomegaly. NST reactive. TOCO: irregular contractions. : Other: Cervix: 4-5/80/-2. AROM with clear fluid. Vertex. Back/Spine/Pelvis: Other: Back: No CVA tenderness. Skin: Other: Skin: No lesions, rashes or ulcers noted. Extrem: Other: Extremities: nontender with no edema Psych: Other: Mental status grossly normal, with normal mood and affect. H&P: Results Labs Labs: Short CBC 11/06/24 Range/Units 06:25 WBC 7.8 (4.5-10.0) K/mm3 Hgb 7.1 L (12.0-15.0) g/dL Hct 24.9 L (37.0-47.0) % Plt Count 187 (150-375) k/mm3 BMP 11/06/24 06:25 Sodium 132 L Potassium 3.8 Chloride 103 Carbon Dioxide 19 L BUN 6 L D Creatinine 0.39 L Glucose 84 Calcium 8.7 Liver Function 11/06/24 Range/Units 06:25 Total Bilirubin 0.4 (0.2-1.3) mg/dL AST 21 (14-36) U/L ALT 11 (6-35) U/L Alkaline Phosphatase 208 H (38-126) U/L Albumin 3.4 L (3.5-5.1) g/dL Assessment and Plan Assessment and plan (1) : Qualifiers: Weeks of gestation: 39 weeks Qualified Code(s): Z3A.39 - 39 weeks gestation of Code(s): Z34.90 - Encounter for supervision of normal , unspecified, unspecified trimester Status: Acute Assessment and Plan: A: IUP at 39 5/7 weeks with favorable cervix, poor care. P: Offered induction of labor. Reviewed risks, benefits and alternatives in detail. Anticipate . (2) Poor patient attendance of care: Code(s): O09.30 - Supervision of with insufficient care, unspecified trimester Status: Acute
[2024-11-06] MEDS: AMPICILLIN SODIUM 2 GM in SODIUM CHLORIDE 0.9% IV 100 ML 200 ML IVPB (09:16)
[2024-11-06] MEDS: FAMOTIDINE 20 MG/2 ML VIAL IV PUSH (09:40)
--- NOTE | 2024-11-06 11:29 | PM.OBPRVD ---
OB - Vaginal Delivery Note Procedure Delivery date: 11/06/24 Induction method: Per Pitocin Protocol Delivery augmentation: Rupture of Membranes Delivery monitor: External FHT and External Uterine Route of delivery: Episiotomy description: None Laceration Description: None Specimen: Yes (cord blood) Quantitative Blood Loss (ml): 80 Anesthesia type: Epidural Disposition: PACU Complications: None Narrative: 24 y/o at 39 5/7 weeks who presented to the hospital for induction of labor. Oxytocin was administered intravenously. She was given ampicillin IV because of unknown GBS status. Amniotomy was performed with return of clear fluid. She received an epidural for pain control. Her labor progressed and her cervix dilated completely. She pushed with good effort over one contraction and delivered the 's head to the perineum, followed by the body. The nose and mouth were bulb suctioned. After a delay, the cord was clamped and cut. The infant was handed off the field. Cord blood was collected. The placenta delivered spontaneously and was grossly normal in appearance. The usual 3 vessel cord was noted. There were no lacerations. Needle and instrument counts were correct. The patient was taken to recovery room in stable condition. The infant went to the nursery in stable condition. I was present and scrubbed for the entire delivery. Norris Baby Date of : 11/06/24 Time of : 11:03 Gestational Age by Date: 39 gender: Female Weight (pounds): 8 Weight (ounces): 7 presentation: vertex position: Left Occiput Anterior Placenta delivery description: Spontaneous and Normal Configuration Cord Vessel Description: 3 Vessels and Delayed Cord Clamping score one minute: 8 score five minutes: 9
--- NOTE | 2024-11-06 11:33 | PM.OBDSVD ---
DS: Admitting Diagnosis Discharge Date 11/08/24 Admitting Diagnosis IUP at 39 5/7 weeks Poor care DS: Discharge Diagnosis Discharge Diagnosis (1) Normal vaginal delivery: Code(s): O80 - Encounter for full-term uncomplicated delivery Status: Acute (2) Poor patient attendance of care: Code(s): O09.30 - Supervision of with insufficient care, unspecified trimester Status: Acute OB - DS: Summary OB Procedures : None OB Procedures Intrapartum: Spontaneous Vag Delivery OB Procedures: : Rubella lg Peripartum Data Laceration Description: None Episiotomy description: None Time Spent with Patient Time attestation: Total time spent providing and/or coordinating discharge services: DS: Data Data Completed and Pending Labs on day of discharge: Labs from last 24 hours 11/06/24 06:25 WBC 7.8 RBC 3.64 L Hgb 7.1 L Hct 24.9 L MCV 68.4 L MCH 19.5 L MCHC 28.5 L RDW 18.3 H Plt Count 187 MPV 10.7 H Immature Gran % (Auto) 1.0 H Neut % (Auto) 73.5 H Lymph % (Auto) 18.2 L [place] % (Auto) 6.4 Eos % (Auto) 0.6 Baso % (Auto) 0.3 Lymph # (Auto) 1.41 [place] # (Auto) 0.5 Eos # (Auto) 0.1 Baso # (Auto) 0.0 Abs Immat Gran (auto) 0.08 H Absolute Neuts (auto) 5.7 Absolute Nucleated RBC 0.000 Band Neutrophils % Not Reportable Nucleated RBC % 0.0 Platelet Estimate Adequate % Immature Plt Fraction 8.3 Hypochromasia 1+ Anisocytosis 2+ Microcytosis 1+ Schistocytes None seen Sodium 132 L Potassium 3.8 Chloride 103 Carbon Dioxide 19 L Anion Gap 10 BUN 6 L D Creatinine 0.39 L Estim Creat Clear Calc 191 Estimated GFR > 60 Glucose 84 Calcium 8.7 Total Bilirubin 0.4 AST 21 ALT 11 Alkaline Phosphatase 208 H Total Protein 6.5 Albumin 3.4 L Urine Opiates Screen Negative Urine Methadone Screen Negative Ur Barbiturates Screen Negative Ur Phencyclidine Scrn Negative Ur Amphetamine Screen Negative U Benzodiazepines Scrn Negative Urine Cocaine Screen Negative U Cannabinoids Screen Negative Syphilis IgG/IgM Ab Non-reactive Blood Type A Positive Antibody Screen Negative Discharge Plan Discharge Attending physician on discharge: Blade Espinoza Consulting providers: Donald Jean Discharging Clinician: Blade Espinoza Patient Disposition: Home Activity: pelvic rest Diet: regular Discharge Instructions: Education: Mom and Baby Guide Given to: Mother Follow-Up: Call your delivering provider's office for an appointment to be seen in: call for appointment Mom and baby should come to the [facility] for the follow-up appointment. Appointment Date/Time: Saturday, November 09, 2024 at 10:00 am What to expect at your follow-up visit: Blood Pressure Check Physical Assessment Call [phone] if you are unable to keep your appointment time. BREAST CARE: * Wear a snug supportive bra. * For engorgement discomfort: Breast Feeding: * Apply warm moist washcloths * Express milk as needed to relieve engorgement * Wear loose clothing Bottle Feeding: * May apply ice packs * For sore nipples: * Identify correct latch-on * Apply warm moist washcloths before and after nursing * Air dry nipples after nursing * May apply Lansinoh cream to nipples EPISIOTOMY/PERINEAL CARE: * Until bleeding stops, use your blas bottle after urinating * Change your pad frequently throughout the day * You may take sitz baths several times a day (fill your bathtub with warm water and soak for 20 minutes.) Do NOT bathe in the water * No tub baths until seen by your physician - You may shower ACTIVITY: * Rest as much as possible. * Do not exercise or lift anything heavier than your baby (such as laundry or other children.) * Avoid stairs or driving as much as possible. * Do not put anything into the vagina. No douching, tampons, or sexual activity until seen by physician. NOTIFY PHYSICIAN IF YOU HAVE ANY QUESTIONS OR IF ANY OF THE FOLLOWING SYMPTOMS OCCUR: * If your vaginal bleeding becomes foul smelling. * If your vaginal bleeding becomes more heavy than a period or if your bleeding changes from pink to bright red. However, you may pass an occasional walnut-sized clot once or twice for the first week . * If you experience a sharp, shooting pain in you calves. DIET: * Eat regular, well-balanced meals. * Drink plenty of fluids daily. Call or return if temperature above 100.4? F, increased abdominal pain, increased vaginal bleeding or any new problems. Patient Instructions: Cigarette Smoking and Your Health (GEN), Electronic Cigarettes and Your Health (GEN) Patient Language: Vietnamese Stand Alone Forms: General Discharge Information Follow-up/Referrals: Blade Espinoza MD [Physician, MACHINE COIL ASSEMBLER] - 6 Weeks Discharge Medications: New fluoxetine 20 mg capsule 20 mg PO DAILY Qty: 30 2RF ibuprofen 600 mg tablet 600 mg PO Q6H PRN (Reason: cramps) Qty: 30 0RF hydrocodone-acetaminophen 5-325 mg tablet 1 tablet PO Q6H PRN (Reason: pain) Qty: 15 0RF ferrous sulfate 325 mg (65 mg iron) tablet 325 mg PO DAILY Qty: 30 0RF acetaminophen 325 mg Tablet 650 mg PO Q6H PRN (Reason: Mild Pain (1-3) Or Headache) Qty: 30 0RF Dermoplast (with menthol) 20-0.5 % Aerosol 1 spray topical PRN PRN (Reason: Perineal Discomfort) Qty: 1 0RF hydrocodone-acetaminophen 5-325 mg Tablet 1 tablet PO Q6H PRN (Reason: Pain Rated 6 Or Greater) Qty: 10 0RF polysaccharide iron complex 150 mg iron Capsule 150 mg PO BIDWM Qty: 1 0RF dibucaine 1 % Ointment 1 applic topical PRN PRN (Reason: Hemorrhoids) Qty: 1 0RF fluoxetine 20 mg Tablet 20 mg PO DAILY Qty: 30 0RF docusate sodium 100 mg Capsule 100 mg PO BID PRN (Reason: Constipation) Qty: 1 0RF ibuprofen 600 mg Tablet 600 mg PO Q6H PRN (Reason: Cramping) Qty: 30 0RF Preparation H (Witch Denia) 50 % Pads, Medicated 1 pad topical PRN PRN (Reason: Perineal Discomfort) Qty: 10 0RF Continued DHA 200 mg capsule 200 mg PO DAILY Date of admission: 11/06/24 06:04 Primary Care Provider: UNKNOWN,DOCTOR Admitting Provider: Blade Espinoza Attending physician on admission: Blade Espinoza Condition: Stable
[2024-11-06] MEDS: OXYTOCIN 30 UNITS/NS 500 ML 30 UNITS/500 ML BAG 125 UNITS IV CONT (11:37)
[2024-11-06] MEDS: ACETAMINOPHEN 325 MG TABLET 650 MG PO ×2 (12:08→19:10)
[2024-11-06] MEDS: WITCH HAZEL 40 PADS 1 PAD TOPICAL (13:36)
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
[2024-11-06] MEDS: IBUPROFEN 600 MG TABLET PO (19:10)
[2024-11-07] MEDS: IBUPROFEN 600 MG TABLET PO ×3 (03:00→21:07)
[2024-11-07] MEDS: ACETAMINOPHEN 325 MG TABLET 650 MG PO ×2 (03:00→21:07)
[2024-11-07 04:23] LABS: Hematocrit 26.2 % (37.0-47.0); Hemoglobin 7.3 g/dL (12.0-15.0)
[2024-11-07 07:30] VITALS: BP 105/57; PULSE 70; RESP 16; TEMP 36.6; O2SAT 98
[2024-11-07] MEDS: DOCUSATE SODIUM 100 MG CAPSULE PO ×2 (08:07→16:09)
--- NOTE | 2024-11-07 16:58 | P.PNOB_ITS ---
OB - PN: Subj Subjective Date/time seen: 11/07/24 16:58 Narrative: Mood good. She has cramping not well covered by ibuprofen. She would like a dose of DMPA for now, but is also interested in tubal sterilization in the future. OB - PN: Obj Data Labs 11/07/24 03:01 11/06/24 06:25 Labs: Laboratory Results - last 24 hr 11/07/24 03:01 Hgb 7.3 L Hct 26.2 L OB - PN A/P Assessment and Plan (1) Normal vaginal delivery: Code(s): O80 - Encounter for full-term uncomplicated delivery Status: Acute Plan day: 1 Comments: A: PPD#1, doing well. P: Routine care. DMPA today. Signed the IDPA tubal ligation form today. Home in AM to f/u 6 weeks. Exam 2 Psych: Other: AVSS ABD soft, nontender, fundus firm EXT nontender
[2024-11-07] MEDS: HYDROcodone/acetaminophen (*CRX) 5-325 MG TABLET 1 TAB PO ×2 (17:06→23:30)
[2024-11-07 19:39] VITALS: BP 121/77; PULSE 83; RESP 18; TEMP 36.8; O2SAT 98
[2024-11-08] MEDS: IBUPROFEN 600 MG TABLET PO ×2 (03:40→10:04)
[2024-11-08] MEDS: ACETAMINOPHEN 325 MG TABLET 650 MG PO ×2 (03:40→10:04)
[2024-11-08] MEDS: HYDROcodone/acetaminophen (*CRX) 5-325 MG TABLET 1 TAB PO ×2 (05:30→11:07)
[2024-11-08] MEDS: DOCUSATE SODIUM 100 MG CAPSULE PO ×2 (05:30→09:03)
[2024-11-08 07:40] VITALS: BP 119/75; PULSE 75; RESP 18; TEMP 37.2; O2SAT 97
[2024-11-08 08:00] VITALS: PULSE 75; RESP 18; O2SAT 97
[2024-11-08] MEDS: MEASLES,MUMPS,RUBELLA VACCINE 0.5 ML VIAL SUB-Q (10:05)
[2024-11-08] MEDS: medroxyPROGESTERone ACETATE IM 150 MG/ML SYR IM (11:05)
[2024-11-09 10:24] VITALS: BP 124/84; PULSE 76; RESP 18; TEMP 36.8; O2SAT 100
== END 2024-11-08 12:07 | disposition home or self-care (01) | DRG 560 ==
LOC: ANHLDR 13:02 → ANHOB2 13:56
PROVIDERS: Admitting Provider Obstetrics & Gynecology; Visit Provider Obstetrics & Gynecology
DX: O99.02 Anemia complicating childbirth (principal); Z37.0 Single live birth; Z3A.39 39 weeks gestation of pregnancy; D56.3 Thalassemia minor; O99.343 Other mental disorders complicating pregnancy, third trimester; F41.9 Anxiety disorder, unspecified; F32.A Depression, unspecified; Z60.8 Other problems related to social environment
CPT/HCPCS: 36415; 80053; 80307; 85014; 85018; 85025; 85055; 86593; 86850; 86900; 86901; 90710; A9270; J0290; J1050; J2590; J2795; J7120

== ENCOUNTER 2024-11-14 15:05 | Outpatient (CLI) | payer MEDICAID, SELFPAY ==
[2024-11-14] VITALS (39 sets, daily range): BP systolic 106–123; BP diastolic 65–82; PULSE 53–86; TEMP 36.6; O2SAT 95–99
[2024-11-14 15:33] LABS: Hematocrit 31.4 % (37.0-47.0); Hemoglobin 8.8 g/dL (12.0-15.0); Immature Granulocyte Percent A 0.8 % (0-0.5); Lymphocytes Absolute Auto 1.24 K/mm3 (0.9-3.2); Mean Corpuscular HGB Conc 28.0 g/dl (32-36); Mean Corpuscular Hemoglobin 19.5 pg (26-34); Mean Corpuscular Volume 69.5 fl (80-100); Nucleated Red Blood Cells Absolute Auto 0.000 K/mm3 (0.0-0.012); Nucleated Red Blood Cells Perc 0.0 % (0.0-0.2); Platelet Count Result 214 k/mm3 (150-375); Red Blood Count 4.52 M/mm3 (4.2-5.4); White Blood Count 6.6 K/mm3 (4.5-10.0)
[2024-11-14 15:44] LABS: Alanine Aminotransferase 24 U/L (6-35); Albumin Level 3.8 g/dL (3.5-5.1); Alkaline Phosphatase 120 U/L (38-126); Anion Gap 8 mmol/L (4-12); Aspartate Amino Transferase 39 U/L (14-36); Bilirubin,Total 0.3 mg/dL (0.2-1.3); Blood Urea Nitrogen 11 mg/dL (7-17); Calcium 8.9 mg/dL (8.4-10.2); Carbon Dioxide 23 mmol/L (22-30); Chloride 106 mmol/L (98-107); Estimated Glomerular Filt Rate > 60; Glucose 82 mg/dL (65-110); Potassium 4.1 mmol/L (3.4-5.0); Sodium 137 mmol/L (137-145); Total Protein 7.1 g/dL (6.3-8.2); Uric Acid 7.3 mg/dL (2.5-7.5)
[2024-11-14 15:52] LABS: Burr Cells 1+; Hypochromasia 1+; Microcytosis 1+ (NORMAL); Polychromasia Occasional; Schistocytes None Seen; Target Cells Occasional
--- OUTSIDE RECORDS SUMMARY | 2024-11-14 17:26 | XMS_ITS | Encounter Summary ---
Author Organization [facility] Address [address] [place] [address] Care Team Providers Care Merchant Mariner Name Role Phone Roseanne Barone MD Primary Care Provider [phone] Encounter Details Date Type Department Care Team (Late st Contact Info) Description 09/20/2021 Therapy Plan [facility] [place], [place] [id number] Anum Marie, [facility] [address] [place], [place] [address] Social History Tobacco Use Types Packs/Day Years [...] declined 05/24/2020 How often do you attend orthodoxy or latter-day serv ices? Patient declined 05/24/2020 Do you belong to any clubs o r organizations such as orthodoxy groups, unions, fraternal or athletic groups, or [...] antepartum documented in this encounter Care Teams Merchant Mariner Relationship Specialty Start Date End Date Roseanne Barone MD [address] [place] [address] [place] [address] PCP - General FAMILY PRACTICE 04/12/20 documented as of this encounter
--- OUTSIDE RECORDS SUMMARY | 2024-11-14 17:26 | XMS_ITS | Clinical Summary ---
Author Organization [facility] Address [address] [place] [address] Care Team Providers Care Pot Sander Name Role Phone Roseanne Barone MD Primary Care Provider [phone] Allergies No known active allergies Medications ferrous sulfate EC 324 (65 Fe) MG tablet Take 1 tablet (324 mg total) by mouth daily with breakfast. 30 tablet 10/12/2021 Active Active Problems Problem Noted Date Diagnosed Date (spontaneous vaginal delivery) ([facility]) Anemia complicating in third trimester ([facility]) 09/20/2021 Resolved Problems Problem Noted Date Diagnosed Date Resolved Date ([facility]) 10/07/2021 10/11/19 22 Encounter for induction of labor ([facility]) 05/24/2020 10/10/2021 Social History Tobacco Use [...] How often do you attend restorationism or denominational serv ices? Patient declined 05/24/2020 Do you [...] - 19+ 3-dose series) 08/03/2019 COVID-19 Vaccine ( - season) 2024 HPV Vaccines Completed 09/28/2015, 09/20/2014 Meningococcal Vaccine [...] 3:02 AM 05/25/2020 3:26 AM Care Teams Pot Sander Relationship Specialty Start Date End Date Roseanne Barone MD [address] [place] [address] [place] [address] PCP - General FAMILY PRACTICE 04/12/20
--- NOTE | 2024-11-14 17:29 | WPDOBADMIT ---
Obstetrics - Admit Note Admission Note: 24 y/o who had a vaginal delivery 8 days ago. She is bottle feeding. She came to L&D today with LLQ pain, some increased passage of blood clots. She was very anemic in the hospital, and was sent home on iron. She has had a mild headache, but it's manageable she says. She is taking fluoxetine 20 mg and says she is sad and overwhelmed, anxious and tearful. She has no suicidal or homicidal ideation. She has no constipation. She has no urinary symptoms. The baby is doing well. AVSS ABD uterine fundus involuting well, mildly tender to palpation. No RUQ or epigastric pain. EXT nontender, no edema Bedside ultrasound by me shows a little hypoechoic material in the endometrial cavity, consistent with the usual state. I don't see anything suggestive of retained placenta. WBC 6.6k. Hgb 8.8. AST 39. ALT 34. A: pain - doubt endometritis, doubt retained placenta, doubt hypertensive disease. Depression also. P: Continue fluoxetine. Continue ibuprofen. Try [place] 5/325 po q 6h prn breakthrough pain. F/u Monday in office if no significant improvement.
== END 2024-11-14 17:57 | disposition home or self-care (01) ==
LOC: ANHOBOP 15:18 → ANHOBPP 15:19
PROVIDERS: Visit Provider Obstetrics & Gynecology
DX: O90.89 Other complications of the puerperium, not elsewhere classified (principal); O13.5 Gestational [pregnancy-induced] hypertension without significant proteinuria, complicating the puerperium
CPT/HCPCS: 36415; 80053; 84550; 85025; 99199

== ENCOUNTER 2024-11-21 00:13 | Day surgery (SDC) | payer OTHER, SELFPAY ==
--- NOTE | 2024-11-19 15:19 | PC.NURSE ---
[facility] has started construction of its new state of the art ER which will open Spring 2026. With this, we anticipate parking may be a challenge for some our surgical patients and families. Parking spaces are limited but are available for all Surgical, obstetrics, and ER patients sharing this lot. If you arrive and find you are having a hard time finding a parking space, please note that we understand the challenges, please drive around the hospital and park near Hospital Entrance 1. When you enter this entrance, you can ask a volunteer to direct or take you back to the surgical waiting area to check in. We appreciate everyone?s understanding of these expected challenges while we build for your future. Report to the Outpatient Waiting Room, entrance under the green pavilion located off [address], at time _1130AM on date __11/21/24 . Planned Procedure Time: _1330PM .? Time changes happen often and if your time is changed the preop area will call you the afternoon before. - You and your visitor will be asked to self-screen and do not enter if you have any COVID symptoms. Please call surgeon if you need to reschedule. - A mask is optional within the hospital at this time. Patients may have clear liquids (water, carbonated beverages, clear teas, apple juice) until 3 hours prior to surgery with a maximum of 20 ounces. - No food from midnight until time of surgery and no smoking, or chewing tobacco (or any form of nicotine). No chewing gum, candy or mints. Take only the following medications with a SIP of water on the morning of surgery: __FLUOXETINE, PAIN PILL_IF NEEDED DO NOT STOP ANY OF YOUR OTHER PRESCRIPTION MEDICATIONS PRIOR TO SURGERY EXCEPT THE FOLLOWING Hold all vitamins and supplements for 3 days per anesthesiologist. Medications to discontinue per physician Date to take last dose Please no make-up, nail guatemalan, hairspray, perfume, deodorant, or body powder the day of surgery.? No jewelry (including any body piercings) or valuables the day of surgery, leave them at home.? Please take a shower or bath the night before, or the morning of, surgery with an antibacterial soap.? Wear comfortable, loose fitting clothing.? - Jewelry must be removed prior to entering the operating room.? Rings and piercings that are not removed may be cut off. - The hospital will not accept responsibility for valuables.? - Please leave all valuables, including medications, at home the day of surgery. If you are going home after surgery, a licensed concrete mixing truck driver must drive you home.? - NO public transportation without another adult if you receive anesthesia. - We recommend that an adult stay with you for 24 hours following discharge. - We also recommend that you do not drive, make important decision, drink alcoholic beverages, or take any drugs that were not prescribed by your health care provider for at least 24 hours after your discharge time. Follow any additional instructions given to you from your surgeon. Telephone instructions given to __MCKAY and asked if any additional questions and then verbalized understanding. Patient advised to call surgeon office or pre surgery nurse liaison [phone] if any additional questions.
--- OUTSIDE RECORDS SUMMARY | 2024-11-21 00:15 | XMS_ITS | Clinical Summary ---
Author Organization [facility] Address [address] [place] [address] Care Team Providers Care Packer Name Role Phone Roseanne Barone MD Primary Care Provider [phone] Allergies No known active allergies Medications ferrous sulfate EC 324 (65 Fe) MG tablet Take 1 tablet (324 mg total) by mouth daily with breakfast. 30 tablet 10/12/2021 Active Active Problems Problem Noted Date Diagnosed Date (spontaneous vaginal delivery) ([facility]) Anemia complicating in third trimester ([facility]) 09/20/2021 Resolved Problems Problem Noted Date Diagnosed Date Resolved Date ([facility]) 10/07/2021 10/11/19 22 Encounter for induction of labor ([facility]) 05/24/2020 10/10/2021 Social History Tobacco Use [...] declined 05/24/2020 How often do you attend lutheran or mandaen serv ices? Patient declined 05/24/2020 Do you belong to any clubs o r organizations such as lutheran groups, unions, fraternal or athletic groups, or [...] 3:02 AM 05/25/2020 3:26 AM Care Teams Packer Relationship Specialty Start Date End Date Roseanne Barone MD [address] [place] [address] [place] [address] PCP - General FAMILY PRACTICE 04/12/20
--- OUTSIDE RECORDS SUMMARY | 2024-11-21 00:15 | XMS_ITS | Encounter Summary ---
Author Organization [facility] Address [address] [place] [address] Care Team Providers Care Quality Assurance Coordinator Name Role Phone Roseanne Barone MD Primary Care Provider [phone] Encounter Details Date Type Department Care Team (Late st Contact Info) Description 09/20/2021 Therapy Plan [facility] [address] [place], [place] [id number] Anum Marie, [facility] [address] [place], [place] [address] Social History Tobacco Use Types Packs/Day Years [...] declined 05/24/2020 How often do you attend sikh or denominational serv ices? Patient declined 05/24/2020 Do you belong to any clubs o r organizations such as sikh groups, unions, fraternal or athletic groups, or [...] antepartum documented in this encounter Care Teams Quality Assurance Coordinator Relationship Specialty Start Date End Date Roseanne Barone MD [address] [place] [address] [place] [address] PCP - General FAMILY PRACTICE 04/12/20 documented as of this encounter
--- NOTE | 2024-11-21 09:56 | PM.IMHP ---
H&P: HPI History of Present Illness Date/Time: 11/21/24 09:56 Chief Complaint: Bleeding Narrative: 24 y/o who had a vaginal delivery 15 days ago. She had been seen by me last week for cramping and bleeding, at which time she had a WBC of 6.6K. Transabdominal ultrasound exam by me showed some fluid in the endometrial cavity, but no obvious retained placental fragments. However, she continues to have cramping and occasional passage of palm-sized clots. No fevers. No new GI/ complaints. She is here for surgical evaluation and treatment of her problem. Review of Systems Review of Systems: All systems reviewed & are unremarkable except as noted in HPI and below PMFSH Past Medical History Medical History UTI (urinary tract infection) Miscarriage Surgical History Surgical History Status post dilation and curettage (11/28/18) suction D&C missed AB Family History Family History Father Diabetes mellitus Mother Diverticulitis Hypertension Social History Social History Smoking packs per day: 0.5 Smoking cigarettes per day: 10.0 Years smoked: 1 Smoking pack-years: 0.50 Smoking status: Current every day smoker Tobacco type: e-cigarettes/vaping Second hand tobacco smoke exposure: Yes Additional smoking assessment comments: VAPES X2YRS Alcohol intake: never Substance use: never Substance use type: does not use Do You Feel Safe in your Home?: Yes Lack of Transportation: No Lack of Food: Never True Current Housing: I Have Housing Concerned About Future Housing: No Difficulty Paying Gas/Electric Bills: No Difficulty Paying for Meds: No Currently Unemployed: No Education: High School Diploma/GED Difficulty w/ Childcare or Family Care: No Living arrangements: with family Additional living arrangements comments: lives with mother Occupation/Education: unemployed Gender identity (if verbalized by the patient): Female Sexual Orientation (if Verbalized by the Patient): Straight or Heterosexual Spiritual care concerns: No Meds Home Medications and Allergies Home Medications ?Medication ?Instructions ?Recorded ?Confirmed ?Type fluoxetine 20 mg capsule 20 mg PO DAILY #30 caps 11/06/24 11/19/24 Rx ferrous sulfate 325 mg (65 mg 325 mg PO DAILY #30 tabs 11/07/24 11/19/24 Rx iron) tablet acetaminophen 325 mg tablet 650 mg (2 x 325 mg) PO Q6H PRN 11/08/24 11/19/24 Rx Mild Pain (1-3) Or Headache #30 tabs dibucaine 1 % topical ointment 1 applic topical PRN PRN 11/08/24 11/19/24 Rx Hemorrhoids #1 g ibuprofen 600 mg tablet 600 mg PO Q6H PRN Cramping #30 tabs 11/08/24 11/19/24 Rx witch denia 50 % topical pads 1 pad topical PRN PRN Perineal 11/08/24 11/19/24 Rx (Preparation H (Witch Denia)) Discomfort #10 ea docusate sodium 100 mg capsule 100 mg PO BID PRN constipation #60 11/14/24 11/19/24 Rx (Colace) caps hydrocodone 5 mg-acetaminophen 325 1 tablet PO Q6H PRN pain #20 tabs 11/14/24 11/19/24 Rx mg tablet Allergies Allergy/AdvReac Type Severity Reaction Status Date / Time No Known Allergies Allergy Verified 11/19/24 15:18 Exam Const: Orientation/consciousness: patient oriented x3 Other: Well-developed, well-nourished female in no acute distress. Neck: Thyroid: thyroid normal Lymphatic: no lymphadenopathy noted (in neck, axilla or inguinal nodes) Resp: Effort & Inspection: normal respiratory effort Auscultation: clear to auscultation bilaterally Cardio: Rate: regular rate Rhythm: regular rhythm Heart sounds: S1 normal heart sound present and S2 normal heart sound present GI: Other: ABD: Soft, nontender, nondistended. No guarding or rebound tenderness. No hepatosplenomegaly. Uterine fundus involuting well, firm, mildly tender to deep palpation. : General: Yes no CVA tenderness Other: External genitalia: normal female hair distribution, without lesion. Urethral meatus: no lesion, non prolapsed. Bladder: no mass, nontender Vagina: small pink lochia. Cervix: closed. Uterus: involuting, firm, mildly tender to deep palpation. Adnexa: no mass or tenderness. Anus/perineum: no lesions, nontender Back/Spine/Pelvis: Back: no CVA tenderness Skin: General skin exam: normal color and no rashes or lesions noted Neuro: General: patient oriented x3 Extrem: Other: Extremities: nontender with no edema Psych: Mental Status: mental status grossly normal Affect: normal affect Assessment and Plan Assessment and plan (1) bleeding: Qualifiers: hemorrhage type: unspecified Qualified Code(s): O72.1 - Other immediate hemorrhage Code(s): O72.1 - Other immediate hemorrhage Status: Acute Assessment and Plan: A: bleeding and cramping, clinically suspicious for retained placental fragments. P: I have offered dilation and suction curettage. She understands risks of surgery to include risks of anesthesia, risks of pain, infection, bleeding, blood products, thromboembolic phenomena and damage to adjacent structures such as bowel, bladder, ureters, blood vessels and nerves. She understands all these risks and elects to proceed with surgery.
[2024-11-21 11:34] VITALS: BP 129/78; PULSE 98; RESP 18; TEMP 36.7; O2SAT 100
[2024-11-21 12:28] VITALS: BMI 29.9
[2024-11-21] MEDS: LACTATED RINGERS 1,000 ML 30 ML IV CONT (12:30)
[2024-11-21] MEDS: ACETAMINOPHEN 500 MG TABLET 1000 MG PO (12:45)
--- NOTE | 2024-11-21 13:54 | WPDHPUPDATE1 ---
History and Physical Update Update Date/Time: 11/21/24 13:54 History and Physical has been reviewed, including an updated exam of the patient. There are NO changes in the patient's condition. Risks, benefits, and alternatives have been discussed and questions answered. Patient agrees to proceed with procedure.
--- NOTE | 2024-11-21 14:02 | WPDANESEPPF ---
Anes - Initial Pre Proc Eval Procedure: Operation Date: 11/21/24 13:30 Proposed Procedures p Suction Dilation and Curettage - Blade Espinoza MD Date/Time: 11/21/24 14:02 Surgeon: Blade Espinoza MD Pre Op Diagnosis: post hemorrhage Patient Data Age: 24 Gender: F Height: 1.63 m Weight: 79.3 kg Last Vital Signs Temp 36.7 C 11/21/24 11:34 Pulse 98 11/21/24 11:34 Resp 18 11/21/24 11:34 BP 129/78 11/21/24 11:34 Pulse Ox 100 11/21/24 11:34 O2 Del Method Room Air 11/21/24 11:34 Allergies Allergy/AdvReac Type Severity Reaction Status Date / Time No Known Allergies Allergy Verified 11/21/24 12:40 Home Medications ?Medication ?Instructions ?Recorded ?Confirmed ?Type fluoxetine 20 mg capsule 20 mg PO DAILY #30 caps 11/06/24 11/21/24 Rx ferrous sulfate 325 mg (65 mg 325 mg PO DAILY #30 tabs 11/07/24 11/21/24 Rx iron) tablet acetaminophen 325 mg tablet 650 mg (2 x 325 mg) PO Q6H PRN 11/08/24 11/19/24 Rx Mild Pain (1-3) Or Headache #30 tabs dibucaine 1 % topical ointment 1 applic topical PRN PRN 11/08/24 11/19/24 Rx Hemorrhoids #1 g ibuprofen 600 mg tablet 600 mg PO Q6H PRN Cramping #30 tabs 11/08/24 11/19/24 Rx witch denia 50 % topical pads 1 pad topical PRN PRN Perineal 11/08/24 11/19/24 Rx (Preparation H (Witch Denia)) Discomfort #10 ea docusate sodium 100 mg capsule 100 mg PO BID PRN constipation #60 11/14/24 11/19/24 Rx (Colace) caps hydrocodone 5 mg-acetaminophen 325 1 tablet PO Q6H PRN pain #20 tabs 11/21/24 Rx mg tablet ibuprofen 600 mg tablet 600 mg PO Q6H PRN cramps #30 tabs 11/21/24 Rx Patient hx anesthesia problems: none Family hx anesthesia problems: none Results Review: All pre-operative results and documents have been reviewed as part of the pre-operative evaluation. [facility] Past Medical History Medical History UTI (urinary tract infection) Miscarriage Surgical History Surgical History Status post dilation and curettage (11/28/18) suction D&C missed AB Family History Family History Father Diabetes mellitus Mother Diverticulitis Hypertension Social History Social History Smoking packs per day: 0.5 Smoking cigarettes per day: 10.0 Years smoked: 1 Smoking pack-years: 0.50 Smoking status: Current every day smoker Tobacco type: e-cigarettes/vaping Second hand tobacco smoke exposure: Yes Additional smoking assessment comments: VAPES X2YRS Alcohol intake: never Substance use: never Substance use type: does not use Do You Feel Safe in your Home?: Yes Lack of Transportation: No Lack of Food: Never True Current Housing: I Have Housing Concerned About Future Housing: No Difficulty Paying Gas/Electric Bills: No Difficulty Paying for Meds: No Currently Unemployed: No Education: High School Diploma/GED Difficulty w/ Childcare or Family Care: No Living arrangements: with family Additional living arrangements comments: lives with mother Occupation/Education: unemployed Gender identity (if verbalized by the patient): Female Sexual Orientation (if Verbalized by the Patient): Straight or Heterosexual Spiritual care concerns: No Anes - Eval Final PreProcedure Day of Procedure 11/21/24 14:02 Patient weight: obese Heart: regular rate and rhythm Lungs: clear to auscultation Airway: Mallampati scale class II Neurological: alert and oriented Last oral intake: >/= 8 hours ASA classification: III Emergent: no Anesthetic plan: proceed Anesthesia type and monitoring: general GIVS and standard monitoring Results Review: All pre-operative results and documents have been reviewed as part of the pre-operative evaluation. Informed Consent: The patient's anesthetic plan and its attendant risks and benefits were discussed with the patient/family/POA. Questions were solicited and answers provided to the satisfaction of the patient/family/POA.
[2024-11-21] MEDS: LIDOCAINE 1% LOCAL INJ 10 ML VIAL INFILTRATE (14:24)
--- NOTE | 2024-11-21 14:26 | S_PTH ---
PATIENT: Carolann Villa LOC: [facility] U#:[id number] AGE/SX: 24/F ROOM: RE11/21/[address]: Blade Espinoza MD : 2000 BED: DIS: 11/21/2024 SPEC #: [id number] RECD: 11/22/24 07:59 STATUS: NEETU RECarey #: [id number] LAUREN: 11/21/24 14:[address]: Blade Espinoza DEPT: [facility] Surgical RECD BY: Lucy Nguyễn ENTERED: 11/22/24 07:59 SP TYPE: Surgical OTHR DR: FAMILY SUPPORT WORKER PHYSICIAN Tissues: A - Endometrial Curettings Procedures: Hematoxylin and Eosin Stain Gross and Microscopic Level 4
--- NOTE | 2024-11-21 14:33 | P.OP_ITS ---
Procedure Note - Detailed Date of Procedure 11/21/24 Pre-op Diagnosis bleeding Post-op Diagnosis Same Procedure Performed Dilation and suction curettage Surgeon Blade Espinoza MD Anesthesia MAC and Local (1% lidocaine) Findings Blood in the endometrial cavity. No obvious placental tissue seen. Description of Procedure The patient was taken to the operating room where she was prepared and draped in the usual sterile fashion in the dorsal lithotomy position. The bladder was drained with a red rubber catheter. A sterile speculum was placed into the vagina. The anterior lip of the cervix was grasped with a single-tooth tenaculum. Ten mL of 1% lidocaine was administered in a paracervical block. The cervix was gently dilated using Hegar dilators until an 8mm dilator could be passed. The 8mm curved tip suction curette was advanced. Suction curettage was performed with findings as noted above. Sharp curettage was then performed until a good uterine cry was noted. A final pass with the suction curette was made. The tenaculum was removed. Hemostasis was excellent. Sponge, lap, needle and instrument counts were correct. The patient was taken to the recovery room in stable condition. I was present and scrubbed for the entire pr ocedure. Implants None Estimated Blood Loss 50 Drains No Packing No Pathology Yes (Endometrial curettings) Complications None Condition Stable Disposition PACU [facility] Billing Surgery - Charge Forward: Surgery Billing
[2024-11-21 14:34] VITALS: BP 94/91; PULSE 68; O2SAT 95
[2024-11-21 15:04] VITALS: BP 105/68; PULSE 48; O2SAT 100
[2024-11-21] MEDS: oxyCODONE HCL (*CRX) 5 MG TAB IR PO (15:15)
[2024-11-21 15:34] VITALS: BP 133/65; PULSE 52
== END 2024-11-21 15:55 | disposition home or self-care (01) ==
PROVIDERS: Visit Provider Obstetrics & Gynecology
PROC: (CPT 59160; principal; 2024-11-21 13:30)
DX: O72.1 Other immediate postpartum hemorrhage (principal); F17.290 Nicotine dependence, other tobacco product, uncomplicated
CPT/HCPCS: 59160; 88305; A9270; J2003; J2250; J2704; J3010; J7120

== ENCOUNTER 2025-01-15 01:18 | Day surgery (SDC) | payer OTHER, SELFPAY ==
[2025-01-03 14:32] VITALS: BMI 29.2
--- NOTE | 2025-01-03 14:40 | PC.NURSE ---
[facility] has started construction of its new state of the art ER which will open Spring 2026. With this, we anticipate parking may be a challenge for some our surgical patients and families. Parking spaces are limited but are available for all Surgical, obstetrics, and ER patients sharing this lot. If you arrive and find you are having a hard time finding a parking space, please note that we understand the challenges, please drive around the hospital and park near Hospital Entrance 1. When you enter this entrance, you can ask a volunteer to direct or take you back to the surgical waiting area to check in. We appreciate everyone?s understanding of these expected challenges while we build for your future. Report to the Outpatient Waiting Room, entrance under the green pavilion located off [address], at time _0930_ on date _[id number]_. Planned Procedure Time: _1130_.? Time changes happen often and if your time is changed the preop area will call you the afternoon before. - You and your visitor will be asked to self-screen and do not enter if you have any COVID symptoms. Please call surgeon if you need to reschedule. - A mask is optional within the hospital at this time. Patients may have clear liquids (water, carbonated beverages, clear teas, apple juice) until 3 hours prior to surgery with a maximum of 20 ounces. - No food from midnight until time of surgery and no smoking, or chewing tobacco (or any form of nicotine). No chewing gum, candy or mints. Take only the following medications with a SIP of water on the morning of surgery: __Acetaminophen if needed. DO NOT STOP ANY OF YOUR OTHER PRESCRIPTION MEDICATIONS PRIOR TO SURGERY EXCEPT THE FOLLOWING Hold all vitamins and supplements for 3 days per anesthesiologist. Medications to discontinue per physician Please call and ask Dr Espinoza's office about Naproxen if need to hold. Date to take last dose Please no make-up, nail senegalese, hairspray, perfume, deodorant, or body powder the day of surgery.? No jewelry (including any body piercings) or valuables the day of surgery, leave them at home.? Please take a shower or bath the night before, or the morning of, surgery with an antibacterial soap.? Wear comfortable, loose fitting clothing.? - Jewelry must be removed prior to entering the operating room.? Rings and piercings that are not removed may be cut off. - The hospital will not accept responsibility for valuables.? - Please leave all valuables, including medications, at home the day of surgery. If you are going home after surgery, a licensed furniture delivery driver must drive you home.? - NO public transportation without another adult if you receive anesthesia. - We recommend that an adult stay with you for 24 hours following discharge. - We also recommend that you do not drive, make important decision, drink alcoholic beverages, or take any drugs that were not prescribed by your health care provider for at least 24 hours after your discharge time. Follow any additional instructions given to you from your surgeon. Telephone instructions given to _Carolann__and asked if any additional questions and then verbalized understanding. Patient advised to call surgeon office or pre surgery nurse liaison [phone] if any additional questions.
[2025-01-15] VITALS (8 sets, daily range): BP systolic 103–118; BP diastolic 59–75; PULSE 64–80; RESP 14–20; TEMP 36.3–36.4; O2SAT 94–100
--- OUTSIDE RECORDS SUMMARY | 2025-01-15 01:21 | XMS_ITS | Encounter Summary ---
Author Organization [facility] Address [address] [place] [id number] Care Team Providers Care Grid Inspector Name Role Phone Roseanne Barone MD Primary Care Provider [phone] Encounter Details Date Type Department Care Team (Late st Contact Info) Description 09/20/2021 Therapy Plan [facility] Infusion [facility] [place], [place] [id number] Anum Marie, [facility] [address] [place], [place] [id number] Social History Tobacco Use Types Packs/Day Years [...] No 05/24/2020 Social Connection and Isolation Panel Answer Date Recorded In a typical week, how many times do you talk on the phone with family, friends, or neighbors? Patient declined 05/24/2020 How often do you get togethe r with friends or relatives? Patient declined 05/24/2020 How often do you attend restorationist or mormon serv ices? Patient declined 05/24/2020 Do you belong to any clubs o r organizations such as restorationist groups, unions, fraternal or athletic groups, or [...] antepartum documented in this encounter Care Teams Grid Inspector Relationship Specialty Start Date End Date Roseanne Barone MD [address] [place] [address] [place] [address] PCP - General FAMILY PRACTICE 04/12/20 documented as of this encounter
--- OUTSIDE RECORDS SUMMARY | 2025-01-15 01:21 | XMS_ITS | Clinical Summary ---
Author Organization [facility] Address [address] [place] [address] Care Team Providers Care Concrete Stone Fabricator Name Role Phone Roseanne Barone MD Primary Care Provider [phone] Allergies No known active allergies Medications ferrous sulfate EC 324 (65 Fe) MG tablet Take 1 tablet (324 mg total) by mouth daily with breakfast. 30 tablet 10/12/2021 Active Active Problems Problem Noted Date Diagnosed Date (spontaneous vaginal delivery) 10/10/2021 Anemia complicating in third trimester 09/20/2021 Resolved Problems Problem Noted Date Diagnosed Date Resolved Date 10/07/2021 10/10/2021 Encounter for induction of labor 05/24/2020 10/10/2021 Social History Tobacco Use Types [...] No 10/07/2021 Social Connection and Isolation Panel Answer Date Recorded In a typical week, how many times do you talk on the phone with family, friends, or neighbors? Patient declined 05/24/2020 How often do you get togethe r with friends or relatives? Patient declined 05/24/2020 How often do you attend tenriism or sabianist serv ices? Patient declined 05/24/2020 Do you belong to any clubs o r organizations such as tenriism groups, unions, fraternal or athletic groups, or [...] - 19+ 3-dose series) 08/03/2019 COVID-19 Vaccine (2024- season) 2024 Influenza Adult (#1) 2024 HPV Vaccines Completed 09/28/2015, 09/20/2014 Meningococcal Vaccine Completed 11/30/2017 , 09/20/2014, 08/25/2010 Hepatitis A Vaccines Aged Out No long er eligible based on patient's age to complete this topic Meningococcal B Vaccine Aged Out No l [...] 3:02 AM 05/25/2020 3:26 AM Care Teams Concrete Stone Fabricator Relationship Specialty Start Date End Date Roseanne Barone MD [address] [place] [address] PCP - General FAMILY PRACTICE 04/12/20
--- NOTE | 2025-01-15 09:26 | P.HP_ITS ---
H&P: HPI History of Present Illness Date/Time: 01/15/25 09:26 Chief Complaint: Here for tubal sterilization Narrative: 24 y/o who desires tubal sterilization for contraception. She has completed childbearing. She was given a dose of DMPA on 11/08/24. Review of Systems Review of Systems: All systems reviewed & are unremarkable except as noted in HPI and below PMFSH Past Medical History Medical History UTI (urinary tract infection) Miscarriage Surgical History Surgical History Status post dilation and curettage (11/28/18) suction D&C missed AB Family History Family History Father Diabetes mellitus Mother Diverticulitis Hypertension Social History Social History Smoking packs per day: 0.5 Smoking cigarettes per day: 10.0 Years smoked: 1 Smoking pack-years: 0.50 Smoking status: Current every day smoker Tobacco type: e-cigarettes/vaping Second hand tobacco smoke exposure: Yes Smoking end date: 01/03/23 Additional smoking assessment comments: VAPES X2YRS Alcohol intake: never Substance use: never Substance use type: does not use Lack of Transportation: No Lack of Food: Never True Current Housing: I Have Housing Concerned About Future Housing: No Difficulty Paying Gas/Electric Bills: No Difficulty Paying for Meds: No Currently Unemployed: No Education: High School Diploma/GED Difficulty w/ Childcare or Family Care: No Living arrangements: with family Additional living arrangements comments: lives with mother Occupation/Education: unemployed Gender identity (if verbalized by the patient): Female Sexual Orientation (if Verbalized by the Patient): Straight or Heterosexual Spiritual care concerns: No Meds Home Medications and Allergies Home Medications ?Medication ?Instructions ?Recorded ?Confirmed ?Type acetaminophen 300 mg-codeine 30 mg 1 tablet PO Q6H PRN pain #20 tabs 12/12/24 01/03/25 Rx tablet naproxen 500 mg tablet (Naprosyn) 500 mg PO BID PRN pa in #30 tabs 12/16/24 01/03/25 Rx Allergies Allergy/AdvReac Type Severity Reaction Status Date / Time No Known Allergies Allergy Verified 01/03/25 14:31 Exam Const: Orientation/consciousness: patient oriented x3 Other: Well-developed, well-nourished female in no acute distress. Neck: Thyroid: thyroid normal Lymphatic: no lymphadenopathy noted (in neck, axilla or inguinal nodes) Resp: Effort & Inspection: normal respiratory effort Auscultation: clear to auscultation bilaterally Cardio: Rate: regular rate Rhythm: regular rhythm Heart sounds: S1 normal heart sound present and S2 normal heart sound present GI: Other: ABD: Soft, nontender, nondistended. No guarding or rebound tenderness. No hepatosplenomegaly. : General: Yes no CVA tenderness Other: External genitalia: normal female hair distribution, without lesion. Urethral meatus: no lesion, non prolapsed. Bladder: no mass, nontender Vagina: well-estrogenized, without lesion or discharge. No cystocele or rectocele. Cervix: no lesion or discharge. Uterus: small, anteverted, freely mobile, nontender Adnexa: no mass or tenderness. Anus/perineum: no lesions, nontender Back/Spine/Pelvis: Back: no CVA tenderness Skin: General skin exam: normal color and no rashes or lesions noted Neuro: General: patient oriented x3 Extrem: Other: Extremities: nontender with no edema Psych: Mental Status: mental status grossly normal Affect: normal affect Assessment and Plan Assessment and plan (1) Unwanted fertility: Code(s): Z30.09 - Encounter for other general counseling and advice on contraception Status: Acute Assessment and Plan: A: Desired sterility. P: I have offered her laparoscopic bilateral salpingectomy. She understands there are temporary methods of contraception available to her. She understands that there are nonsurgical options as well as surgical options. She understands that bilateral salpingectomy will render her permanently sterile. She understands that there is a failure rate associated with tubal sterilization, as well as an inherent ectopic gestation risk. Furthermore, she understands risks of surgery to include risks of anesthesia, risks of pain, infection, bleeding, blood products, thromboembolic phenomena and damage to adjacent structures such as bowel, bladder, ureters, blood vessels and nerves. She understands all these risks and elects to proceed with surgery.
[2025-01-15] MEDS: ACETAMINOPHEN 500 MG TABLET 1000 MG PO (10:15)
[2025-01-15 10:26] LABS: BEDSIDEPREGUCG Negative (Negative)
[2025-01-15] MEDS: KETOROLAC 15 MG/ML VIAL (*BKC) IV PUSH (10:42)
[2025-01-15] MEDS: LACTATED RINGERS 1,000 ML 30 ML IV CONT (11:00)
--- NOTE | 2025-01-15 11:43 | WPDANESEPPF ---
Anes - Initial Pre Proc Eval Procedure: Operation Date: 01/15/25 11:30 Proposed Procedures p Laparascopic Bilateral Salpingectomy - Blade Espinoza MD Date/Time: 01/15/25 11:43 Surgeon: Blade Espinoza MD Pre Op Diagnosis: desires sterilization Patient Data Age: 24 Gender: F Height: 1.63 m Weight: 77.3 kg Last Vital Signs Temp 36.4 C L 01/15/25 10:24 Pulse 80 01/15/25 10:24 Resp 20 01/15/25 10:24 BP 118/74 01/15/25 10:24 Pulse Ox 99 01/15/25 10:24 O2 Del Method Room Air 01/15/25 10:24 Allergies Allergy/AdvReac Type Severity Reaction Status Date / Time No Known Allergies Allergy Verified 01/03/25 14:31 Home Medications ?Medication ?Instructions ?Recorded ?Confirmed ?Type acetaminophen 300 mg-codeine 30 mg 1 tablet PO Q6H PRN pain #20 tabs 12/12/24 01/03/25 Rx tablet naproxen 500 mg tablet (Naprosyn) 500 mg PO BID PRN pain #30 tabs 12/16/24 01/03/25 Rx Laboratory Tests 01/15/25 10:24 POC Urine HCG, Qual Negative (Negative) HCG: negative Patient hx anesthesia problems: none Family hx anesthesia problems: none Results Review: All pre-operative results and documents have been reviewed as part of the pre-operative evaluation. [facility] Past Medical History Medical History UTI (urinary tract infection) Miscarriage Surgical History Surgical History Status post dilation and curettage (11/28/18) suction D&C missed AB Family History Family History Father Diabetes mellitus Mother Diverticulitis Hypertension Social History Social History Smoking packs per day: 0.5 Smoking cigarettes per day: 10.0 Years smoked: 1 Smoking pack-years: 0.50 Smoking status: Current every day smoker Tobacco type: e-cigarettes/vaping Second hand tobacco smoke exposure: Yes Smoking end date: 01/03/23 Additional smoking assessment comments: VAPES X2YRS Alcohol intake: never Substance use: never Substance use type: does not use Lack of Transportation: No Lack of Food: Never True Current Housing: I Have Housing Concerned About Future Housing: No Difficulty Paying Gas/Electric Bills: No Difficulty Paying for Meds: No Currently Unemployed: No Education: High School Diploma/GED Difficulty w/ Childcare or Family Care: No Living arrangements: with family Additional living arrangements comments: lives with mother Occupation/Education: unemployed Gender identity (if verbalized by the patient): Female Sexual Orientation (if Verbalized by the Patient): Straight or Heterosexual Spiritual care concerns: No Anes - Eval Final PreProcedure Day of Procedure 01/15/25 11:43 Patient weight: overweight Heart: regular rate and rhythm Lungs: normal air movement Airway: Mallampati scale class II Neurological: alert and oriented Last oral intake: >/= 8 hours ASA classification: II Emergent: no Anesthetic plan: proceed Anesthesia type and monitoring: general ETT and standard monitoring Results Review: All pre-operative results and documents have been reviewed as part of the pre-operative evaluation. Informed Consent: The patient's anesthetic plan and its attendant risks and benefits were discussed with the patient/family/POA. Questions were solicited and answers provided to the satisfaction of the patient/family/POA.
--- NOTE | 2025-01-15 11:48 | WPDHPUPDATE1 ---
History and Physical Update Update Date/Time: 01/15/25 11:48 History and Physical has been reviewed, including an updated exam of the patient. There are NO changes in the patient's condition. Risks, benefits, and alternatives have been discussed and questions answered. Patient agrees to proceed with procedure.
--- NOTE | 2025-01-15 12:24 | S_PTH ---
PATIENT: Carolann Villa LOC: [facility] U#:[id number] AGE/SX: 24/F ROOM: RE01/15/[address]: Blade Espinoza MD : 2000 BED: DIS: 01/15/2025 SPEC #: [id number] RECD: 01/15/25 12:51 STATUS: NEETU RECarey #: [id number] LAUREN: 01/15/25 12:[address]: Blade Espinoza DEPT: [facility] Surgical RECD BY: Lucy Nguyễn ENTERED: 01/15/25 12:51 SP TYPE: Surgical OTHR DR: UNKNOWN,DOCTOR Tissues: A - Fallopian Tube Bilateral Procedures: Gross and Microscopic Level 2 Hematoxylin and Eosin Stain
--- NOTE | 2025-01-15 12:35 | W.PM.PROC2 ---
Procedure Note - Detailed Date of Procedure 01/15/25 Pre-op Diagnosis Desired sterility Post-op Diagnosis Same Procedure Performed Laparoscopic bilateral salpingectomy Surgeon Blade Espinoza MD Anesthesia General Findings Normal-appearing liver and gallbladder. Normal-appearing vermiform appendix. Normal-appearing pelvic anatomy. Uterus, bilateral tube and ovaries, anterior and posterior cul de sac, bilateral round and uterosacral ligaments are all normal-appearing. Description of Procedure The patient was taken to the operating room where general endotracheal anesthesia was administered. She was prepared and draped in the usual sterile fashion in dorsal lithotomy position. The bladder was drained with a red rubber catheter. A sterile speculum was placed into the vagina. The anterior lip of the cervix was grasped with a single-tooth tenaculum. The acorn uterine manipulator was placed. The speculum was withdrawn. Gloves were changed and attention was turned the abdomen. An infraumbilical skin incision was made with a scalpel. The abdomen was tented and a 5mm bladeless trocar was advanced under direct laparoscopic visualization. Pneumoperitoneum was administered using carbon dioxide gas. A survey of the pelvis and abdomen revealed the findings noted above. Additional 5 mm incisions were made in the midline above the pubic symphysis, and in the left lower quadrant, and 5 mm ports were advanced using bladeless trocars under direct laparoscopic visualization. The Fallopian tube on the right side was grasped and elevated and dissected off the ovary using the Ligasure. The tube was then amputated from the uterus and passed off to be sent to pathology. The left tube was similarly dissected free and excised. Hemostasis was excellent. The ports were withdrawn. The gas was allowed to escape. The skin incisions were reapproximated using interrupted subcuticular sutures of 4 0 Vicryl. Dermaflex was applied externally. The vaginal instrumentation was withdrawn and hemostasis was excellent here as well. Sponge, lap, needle and instrument counts were correct. The patient was awakened and taken to recovery room in stable condition. I was present and scrubbed through the entire procedure. Implants None Estimated Blood Loss 5 Drains No Packing No Pathology Yes (Bilateral Fallopian tubes) Complications None Condition Stable Disposition PACU [facility] Billing Surgery - Charge Forward: Surgery Billing
[2025-01-15] MEDS: fentaNYL CITRATE INJ (*CRX) 100 MCG/2 ML VIAL 25 MCG IV PUSH ×4 (12:57→13:15)
[2025-01-15] MEDS: oxyCODONE HCL (*CRX) 5 MG TAB IR PO (13:40)
== END 2025-01-15 14:05 | disposition home or self-care (01) ==
PROVIDERS: Visit Provider Obstetrics & Gynecology
PROC: (CPT 49320; principal; 2025-01-15 11:30)
DX: Z30.2 Encounter for sterilization (principal); N83.8 Other noninflammatory disorders of ovary, fallopian tube and broad ligament; F17.290 Nicotine dependence, other tobacco product, uncomplicated
CPT/HCPCS: 58661; 88302; A9270; J1100; J1885; J2003; J2250; J2405; J2704; J3010; J7120

== ENCOUNTER 2025-01-21 17:26 | Emergency (ER) | payer OTHER, SELFPAY ==
--- OUTSIDE RECORDS SUMMARY | 2025-01-21 17:28 | XMS_ITS | Clinical Summary ---
Author Organization [facility] Address [address] [place] [address] Care Team Providers Care Manager Competitive Intelligence Name Role Phone Roseanne Barone MD Primary Care Provider [phone] Allergies No known active allergies Medications ferrous [...] declined 05/24/2020 How often do you attend quaker or judaism serv ices? Patient declined 05/24/2020 Do you belong to any clubs o r organizations such as quaker groups, unions, fraternal or athletic groups, or [...] 3:02 AM 05/25/2020 3:26 AM Care Teams Manager Competitive Intelligence Relationship Specialty Start Date End Date Roseanne Barone MD [address] [place] [address] PCP - General FAMILY PRACTICE 04/12/20
--- OUTSIDE RECORDS SUMMARY | 2025-01-21 17:28 | XMS_ITS | Encounter Summary ---
Author Organization [facility] Address [address] [place] [address] Care Team Providers Care Motor Vehicle Escort Driver Name Role Phone Roseanne Barone MD Primary Care Provider [phone] Encounter Details Date Type Department Care Team (Late st Contact Info) Description 09/20/2021 Therapy Plan [facility] Infusion Services [address] [place], [place] [id number] Anum Marie, [facility] [address] [place], [place] [id number] Social History Tobacco Use Types Packs/Day Years [...] declined 05/24/2020 How often do you attend congregational or evangelical serv ices? Patient declined 05/24/2020 Do you belong to any clubs o r organizations such as congregational groups, unions, fraternal or athletic groups, or [...] antepartum documented in this encounter Care Teams Motor Vehicle Escort Driver Relationship Specialty Start Date End Date Roseanne Barone MD [address] [place] [address] [place] [address] PCP - General FAMILY PRACTICE 04/12/20 documented as of this encounter
[2025-01-21 17:48] VITALS: BP 125/65; PULSE 91; RESP 17; TEMP 36.6; O2SAT 98
--- NOTE | 2025-01-21 20:56 | ED.SKABFB ---
HPI - Skin/Abscess/Foreign Bdy General Chief complaint: Skin/Abscess/Foreign Body Stated complaint: Got stuck by staple in abdominal incision Time Seen by Provider: 01/21/25 20:44 Source: patient Mode of arrival: ambulatory Limitations: no limitations History of Present Illness HPI narrative: This is a 24-year-old female that presents to the emergency department for wound check. Patient had a salpingectomy 01/15/2025. Today some of the glue on one of her incisions came off. Related Data Allergies Allergy/AdvReac Type Severity Reaction Status Date / Time No Known Allergies Allergy Verified 01/03/25 14:31 Review of Systems Review of Systems: All systems reviewed & are unremarkable except as noted in HPI and below PMFSH Past Medical History Medical History UTI (urinary tract infection) Miscarriage Surgical History Surgical History Status post dilation and curettage (11/28/18) suction D&C missed AB Family History Family History Father Diabetes mellitus Mother Diverticulitis Hypertension Social History Social History Smoking packs per day: 0.5 Smoking cigarettes per day: 10.0 Years smoked: 1 Smoking pack-years: 0.50 Smoking status: Current every day smoker Tobacco type: e-cigarettes/vaping Second hand tobacco smoke exposure: Yes Smoking end date: 01/03/23 Additional smoking assessment comments: VAPES X2YRS Alcohol intake: never Substance use: never Substance use type: does not use Lack of Transportation: No Lack of Food: Never True Current Housing: I Have Housing Concerned About Future Housing: No Difficulty Paying Gas/Electric Bills: No Difficulty Paying for Meds: No Currently Unemployed: No Education: High School Diploma/GED Difficulty w/ Childcare or Family Care: No Living arrangements: with family Additional living arrangements comments: lives with mother Occupation/Education: unemployed Gender identity (if verbalized by the patient): Female Sexual Orientation (if Verbalized by the Patient): Straight or Heterosexual Spiritual care concerns: No Exam Narrative: GENERAL: Well-appearing, well-nourished, and in no acute distress. HEAD: Normocephalic, atraumatic. EYES: EOMI. ABDOMEN: Soft, nontender, nondistended, normal active bowel sounds. Incisions are clean, dry, no erythema or abnormal drainage. Small area of glue avulsed, without wound dehiscence EXTREMITIES: Normal range of motion. No edema. SKIN: Warm, dry, no rash. NEURO: No focal deficits. Alert and oriented x3. PSYCH: Normal mood and affect Course Vital Signs Vital signs: Vital Signs Temperature 97.9 F 01/21/25 17:48 Pulse Rate 91 01/21/25 17:48 Respiratory Rate 17 01/21/25 17:48 Blood Pressure 125/65 01/21/25 17:48 Pulse Oximetry 98 01/21/25 17:48 Oxygen Delivery Room Air 01/21/25 17:48 Temperature 97.9 F 01/21/25 17:48 Pulse Rate 91 01/21/25 17:48 Respiratory Rate 17 01/21/25 17:48 Blood Pressure 125/65 01/21/25 17:48 Pulse Oximetry 98 01/21/25 17:48 Oxygen Delivery Room Air 01/21/25 17:48 MDM MDM Narrative Medical decision making narrative: Patient presents to the emergency department after an area of skin glue was avulsed from her salpingectomy incision. Incisions appear well healing without signs of infection. No concerning wound dehiscence Differential Diagnosis Differential Diagnosis: skin adhesive care, wound dehiscence Critical Care Time Critical Care Time Critical Care Time: No Discharge Plan Discharge Clinical Impression: Glued skin wound, Visit for wound check Patient Disposition: Home Condition: Stable Instructions: Skin Adhesive Care (ED) Additional Instructions: Return to the emergency department if you experience fever, redness or swelling of your wound, abnormal drainage from your wound, or any other symptoms that are concerning to you. You may let the water run over the wound in the shower. Wound care as directed by your surgeon Follow-up with your doctor for further care Patient Language: Australian Prescriptions: No Action tramadol 50 mg tablet 50 - 100 mg PO Q6H PRN (Reason: pain) Qty: 30 0RF naproxen [Naprosyn] 500 mg tablet 500 mg PO BID PRN (Reason: pain) Qty: 30 0RF hydrocodone-acetaminophen 5-325 mg tablet 1 - 2 tablet PO Q6H PRN (Reason: pain) Qty: 20 0RF Follow-up/Referrals: UNKNOWN,DOCTOR [Primary Care Provider]
--- OUTSIDE RECORDS SUMMARY | 2025-01-21 21:17 | XMS_ITS | Clinical Summary ---
Author Organization [facility] Address [address] [place] [address] Care Team Providers Care Care Analyst Name Role Phone Roseanne Barone MD Primary Care Provider [phone] Allergies No known active allergies Medications ferrous [...] declined 05/24/2020 How often do you attend pentecostalism or amish serv ices? Patient declined 05/24/2020 Do you belong to any clubs o r organizations such as pentecostalism groups, unions, fraternal or athletic groups, or [...] 3:02 AM 05/25/2020 3:26 AM Care Teams Care Analyst Relationship Specialty Start Date End Date Roseanne Barone MD [address] [place] [address] PCP - General FAMILY PRACTICE 04/12/20
--- OUTSIDE RECORDS SUMMARY | 2025-01-21 21:17 | XMS_ITS | Encounter Summary ---
Author Organization [facility] Address [address] [place] [address] Care Team Providers Care Customer Agent Name Role Phone Roseanne Barone MD Primary Care Provider [phone] Encounter Details Date Type Department Care Team (Late st Contact Info) Description 09/20/2021 Therapy Plan [facility] Infusion Services [address] [place], [place] [id number] Anum Marie, [facility] [address] [place], [place] [phone] Social History Tobacco Use Types Packs/Day Years [...] declined 05/24/2020 How often do you attend druze or church serv ices? Patient declined 05/24/2020 Do you belong to any clubs o r organizations such as druze groups, unions, fraternal or athletic groups, or [...] antepartum documented in this encounter Care Teams Customer Agent Relationship Specialty Start Date End Date Roseanne Barone MD [address] [place] [address] [place] [address] PCP - General FAMILY PRACTICE 04/12/20 documented as of this encounter
== END 2025-01-21 21:22 | disposition home or self-care (01) ==
LOC: ANHED 21:15
PROVIDERS: Emergency Provider Physician Assistant
DX: Z48.01 Encounter for change or removal of surgical wound dressing (principal); Z87.440 Personal history of urinary (tract) infections; Z87.891 Personal history of nicotine dependence; Z90.79 Acquired absence of other genital organ(s)
CPT/HCPCS: 99281